=== PATIENT | male | born 1985 | race Caucasian/White ===

== ENCOUNTER 2023-09-25 11:25 | Emergency (ER) | payer OTHER, SELFPAY ==
[2023-09-25 11:28] VITALS: BP 163/95; PULSE 88; RESP 18; TEMP 36.6; O2SAT 98; BMI 26.6
--- NOTE | 2023-09-25 11:43 | ED.UPPEXIN1 ---
HPI - Extremity Injury (Upper) General Chief Complaint: Extremity Injury, Upper Stated Complaint: UPPER EXTREMITY PAIN RIGHT WRIST Time Seen by Provider: 09/25/23 11:30 Source: patient Mode of arrival: walk-in History of Present Illness HPI narrative: 38-year-old male presents for right wrist pain. He fell onto his outstretched hand about a week ago today. No other injury was sustained, he didn't hit his head or injure his left hand or wrist. He points to the right wrist indicate area of pain. He's been told he has bone spurs in there and the pain is moderate and worse when he moves it. Related Data Previous Rx's Medication Instructions Recorded ibuprofen 800 mg tablet 800 mg PO Q8H PRN pain #20 tabs 09/25/23 Allergies Allergy/AdvReac Type Severity Reaction Status Date / Time sumatriptan [From Imitrex] Allergy Severe syncope Verified 09/25/23 11:33 Review of Systems ROS Narrative A ten point review of systems is negative except as noted above. Exam Narrative Exam Narrative: Nurses note and vital signs reviewed and patient is not hypoxic. General: The patient appears well and in no apparent distress. Patient is resting comfortably on cart. Skin: Warm, dry, no pallor noted. There is no rash noted. Head: Normocephalic, atraumatic Eye: Normal conjunctiva, no drainage Ears, Nose, Mouth, and Throat: oral mucosa is moist. Nares patent. Cardiovascular: Regular Rate and Rhythm Respiratory: Patient is in no distress, no accessory muscle use Back: non-tender GI: nontender Musculoskeletal: right hand is nontender and fingers are full range of motion. There is no deformity in the right wrist. There is no obvious swelling and there is no bruising or erythema or rash or abrasions. Range of motion is complete but causes discomfort. Neurological: A&O, normal speech Psychiatric: Cooperative Constitutional Vital Signs, click to edit/add: Last Vital Signs Temp 98 F 09/25/23 11:28 Pulse 88 09/25/23 11:28 Resp 18 09/25/23 11:28 BP 163/95 H 09/25/23 11:28 Pulse Ox 98 09/25/23 11:28 O2 Del Method Room Air 09/25/23 11:28 Course Vital Signs Vital signs: Vital Signs Temperature 98 F 09/25/23 11:28 Pulse Rate 88 11/14/23 11:28 Respiratory Rate 18 09/25/23 11:28 Blood Pressure 163/95 H 09/25/23 11:28 Pulse Oximetry 98 09/25/23 11:28 Oxygen Delivery Method Room Air 09/25/23 11:28 Temperature 98 F 09/25/23 11:28 Pulse Rate 88 09/25/23 11:28 Respiratory Rate 18 09/25/23 11:28 Blood Pressure 163/95 H 09/25/23 11:28 Pulse Oximetry 98 09/25/23 11:28 Oxygen Delivery Method Room Air 09/25/23 11:28 MDM - Extremity Injury (Upper) MDM Narrative Medical decision making narrative: x-rays per radiologist showed no acute findings. Splint applied, application checked by me and found to be appropriate, he is neurovascularly intact. He'll follow-up with orthopedics. Treatment diagnosis and follow-up were discussed with the patient. Differential Diagnosis Differential diagnosis: Likely sprain and strain of wrist and fracture of wrist Imaging Data right wrist x-ray: Radiologist's impression: Procedure: XR wrist RT min 3V EXAM: XR wrist RT min 3V HISTORY: fall one week ago, now with pain. COMPARISON: None. TECHNIQUE: 3 views of the right wrist were obtained. FINDINGS: There is no evidence of an acute fracture or dislocation. A few small scattered cysts are seen in the carpal bones. Ulnar minus variance is present. The joint spaces are intact. No abnormal soft tissue calcification is identified. IMPRESSION: No acute fracture or dislocation. The joint spaces are intact throughout. Electronically authenticated by: SWETA SMITH Date: 09/25/2023 12:41 Discharge Plan Discharge Chief Complaint: Extremity Injury, Upper Clinical Impression: Sprain of right wrist Patient Disposition: Home, Self-Care Time of Disposition Decision: 12:51 Condition: Good Mode of Transportation: Private Vehicle Prescriptions / Home Meds: New ibuprofen 800 mg tablet 800 mg PO Q8H PRN (Reason: pain) Qty: 20 0RF Instructions: Wrist Sprain (ED) Additional Instructions: Follow-up with Dr. Alejandre Stand Alone Forms: Portal Instructions Referrals: Physician,Non-Staff, MD [Primary Care Provider] - 1 week
--- NOTE | 2023-09-25 11:50 | XR_ITS ---
The [address] [address] Patient Name: YUSEF CHAPARRO MRN: [id number] date: 1985 Sex: M Assigned Patient Location: ER Current Patient Location: ER Accession/Order Number: [id number] Exam Date: 09/25/2023 11:55 Report Date: 09/25/2023 12:41 At the request of: ABHINAV COOK Procedure: XR wrist RT min 3V EXAM: XR wrist RT min 3V HISTORY: fall one week ago, now with pain. COMPARISON: None. TECHNIQUE: 3 views of the right wrist were obtained. FINDINGS: There is no evidence of an acute fracture or dislocation. A few small scattered cysts are seen in the carpal bones. Ulnar minus variance is present. The joint spaces are intact. No abnormal soft tissue calcification is identified. XR/XR wrist RT min 3V IMPRESSION: No acute fracture or dislocation. The joint spaces are intact throughout. Electronically authenticated by: SWETA SMITH Date: 09/25/2023 12:41
== END 2023-09-25 12:57 | disposition home or self-care (01) ==
PROVIDERS: Emergency Provider Emergency Medicine
DX: S63.501A Unspecified sprain of right wrist, initial encounter (principal); W19.XXXA Unspecified fall, initial encounter
CPT/HCPCS: 73110; 99283

== ENCOUNTER 2025-09-25 15:01 | Outpatient (OUT) | payer OTHER, SELFPAY ==
--- NOTE | 2025-09-25 15:08 | XR_ITS ---
The [address] [address] Patient Name: YUSEF CHAPARRO MRN: [id number] date: 1985 Sex: M Assigned Patient Location: RAD Current Patient Location: [facility] Accession/Order Number: [id number] Exam Date: 09/25/2025 15:10 Report Date: 09/25/2025 17:35 At the request of: AIMEE JOLLY Procedure: XR wrist RT min 3V 3 views of the right wrist CLINICAL HISTORY: pain, nontraumatic COMPARISON: 09/25/2023 FINDINGS: No fracture-dislocation. Joint spaces preserved. Presumed subchondral cystic changes involving the lunate and distal scaphoid.. Soft tissues unremarkable. XR/XR wrist RT min 3V IMPRESSION: NO ACUTE OSSEOUS FINDINGS. Impression dictated by: Harvey Banegas M.D. 09/25/2025 5:35 PM Dictation Location: [place] [address] Electronically authenticated by: [id number] Y Date: 09/25/2025 17:35
--- OUTSIDE RECORDS SUMMARY | 2025-09-25 15:08 | XMS_ITS | CCD ---
Author Organization [facility] Care Team Providers Care Teaching Dietitian Name Role Phone Mars Dana Unavailable Shirlene Negron Unavailable FARRAH ., DR KORY Rouse Primary Care Unavailable JOEY ., KATHY Admitting Unavailable JOEY ., KATHY Attending Unavailable JARAD, DR DANA Ashley Consulting Unavailable KENIACHNY ., ANGI ARZATE Consulting Unavailanna YAN ., DR KORY Rouse Admitting Unavailable YAN ., DR KORY Rouse Attending Unavailable YAN ., DR KORY Rouse Primary Care Unavailable YAN ., DR KORY Rouse Consulting Unavailable Clint Warren Attending Unavailab Clint Harris Admitting Unavailab Koyr Peñaloza Primary Care Unavailable Marcell Miller DDS Attending Unavailable Aimee Jolly Primary Care Physician Cristiane Nicholas I Unavailable Unavailable LuzAimee Attending Unavailable LuzAimee Attending Unavailable LuzAimee Attending Unavailable Luz, Aimee Simpson Attending Unavailable LuzAimee Admitting Unavailable LuzAimee Attending Unavailable Luz DAIRY DEPARTMENT MANAGER - CRISIS COUNSELORAimee Primary Care Provider AIMEE JOLLY Primary Care Unavailable IACOBBRITNEYMAYTE Admitting Unavailable IACOBBRITNEYMAYTE Attending Unavailable LILIA BURCH Consulting Unavailable KORY YAN Primary Care Unavailable AMYELA MAYFIELD Attending Unavailable LuzAimee Admitting Unavailable LuzAimee Attending Unavailable LuzAimee Attending Unavailable LuzAimee Attending Unavailable Luz, Aimee Simpson Attending Unavailable Luz, Aimee Simpson Attending Unavailable LuzAimee Attending Unavailable LuzAimee Attending Unavailable LuzAimee Attending Unavailable Allergies Allergy ClassificationReported Allergen(s)Allergy TypeDate of OnsetReaction(s) Facility (10 sources)SUMAtriptan; Translations: [sumatriptan]Drug Cqvufzh38-75-2729Sdovu (See Comments)[facility] [place] (3 sources)Acetaminophen / oxyCODONE; Translations: [Percocet]Drug Allergy 64-44-7894Zdf [facility] (1 source)cyclobenzaprineDrug Hnwogox32-90-8520Ghm [facility] (3 sources)Plasmin; Translations: [Imitrex]Drug Witzgxq71-66-0783[facility] (1 source)traMADolDrug Cmbavsh32-42-3015Kll [facility] (1 source)cyclobenzaprineDrug Bsshtir91-21-5411DvkyelnulUk [facility] (1 source)SUMAtriptanDrug Ohyufqr80-71-6808ZyfhpbataUk Healthcare Repository (1 source)Acetaminophen / oxyCODONE; Translations: [acetaminophen-oxycodone]Drug AllergyUnknown (qualifier value)[facility] (3 sources)Minocycline; Translations: [minocycline]Drug AllergyUnknown (qualifier value)[facility] (4 sources)traMADol; Translations: [tramadol]Drug Btvrsvi98-56-3762Vvyntlp (qualifier value), [facility]chingAv[facility] (1 source)Acetaminophen / oxyCODONEDrug Ojsyonq42-15-4559IaoyzehDyvN[facility] (1 source)cyclobenzaprineDrug Ajnwayu80-40-0502RinqlreKdgNorton Community Hospital (1 source)MinocyclineDrug Pohsmjb29-05-8663KspzetkKpxNorton Community Hospital Medications Current Medications MedicationDrug Class(es)DatesSig (Normalized)Sig (Original)acetaminophen 325 mg oral tablet (3 sources)Start: 49-63-2472usqm 4000 mg by mouth every twenty-four hours as mg, Oral, EVERY 4 HOURS PRN, Starting on Jossy 06/18/25 at 0928, Until Discontinued, Pain Mild (1-3) OR per patient request for pain score (4-10), Fever, Fever >100.5 F (38 C), Maximum dose of acetaminophen is 4000 mg from all sources in 24 hours., Recovery(Cath)Start: 17-09-3677ahkzizqyqrrea (TYLENOL) tablet 650 mgStart: 06-17-2025 End: 63-34-5281pgck 4000 mg by mouth every twenty-four hours1,000 mg, Oral, ONCE, 1 dose, On Sun06/17/25 at 0600, Maximum dose of acetaminophen is 4000 mg from all sources in 24 hours.amitriptyline hydrochloride 50 mg oral tablet (2 sources)Tricyclic AntidepressantStart: 12-15-5064lups 1 tablet by mouth at bedtimeAmitriptyline HCl 50 MG 1 TABLET Orally AT BEDTIME for 30 day(s) Sep, Activeamylase 472915 unt / lipase 39677 unt / protease 117705 unt delayed release oral capsule (4 sources)Start: 61-46-7761mfuu 1 capsule by mouth three times daily at mealtimeCreon 17056-402934 UNIT 1 capsule Orally tid with meals for 30 days Aug, Activeaspirin 81 mg chewable tablet (4 sources)Platelet Aggregation Inhibitor, Nonsteroidal Anti-inflammatory Drug Start: 06-16-4025dvkq 1 tablet by mouth once dailyaspirin 81 MG chewable tablet Take 1 tablet by mouth daily 30 tablet 3 06/19/2025 ActiveStart: 53-03-7173rrnt 1 dose by mouth zzxx537 mg, Oral, ONCE, 1 dose, On Sun06/17/25 at 0815Start: 74-76-6847feuf 81 mg by mouth once daily81 mg, Oral, DAILY, First dose on Sun06/18/25 at 0900, Until Discontinuedatorvastatin 40 mg oral tablet (2 sources)HMG-CoA Reductase InhibitorStart: 52-21-6177yrrc 1 tablet by mouth once dailyatorvastatin (LIPITOR) 40 MG tablet Take 1 tablet by mouth nightly 30 tablet 3 06/18/2025 ActiveStart: 81-65-1525iuiz 40 mg by mouth once daily40 mg, Oral, NIGHTLY, First dose on Sun06/17/25 at 2100, Until DiscontinuedbusPIRone hydrochloride 10 mg oral tablet (1 source)Start: 40-38-3003oaog 1 tablet by mouth three times dailybusPIRone 10 mg Tab 10 mg = 1 tab(s), Oral, TID, # 90 tab(s), Refills(s) 0, Pharmacy: [facility], 175, cm, 11/25/24 15:16:00 EST, Height/Length Dosing, 96.1, kg, 11/25/24 15:16:00 EST, Weight Dosing Start Date: 11/25/24 Status: Ordered ciprofloxacin 500 mg oral tablet (3 sources)Quinolone AntimicrobialStart: 58-04-1954fthf 1 tablet by mouth every twelve hoursCipro 500 MG 1 tablet Orally every 12 hrs for 10 day(s) Sep, Activeescitalopram 20 mg oral tablet (1 source)Serotonin Reuptake InhibitorStart: 58-44-6398rdyq 1 tablet by mouth once dailyescitalopram 20 mg Tab 20 mg = 1 tab(s), Oral, Daily, # 90 tab(s), Refills(s) 1, Pharmacy: [facility], 175, cm, 11/25/24 15:16:00 EST, Height/Length Dosing, 96.1, kg, 11/25/24 15:16:00 EST, Weight Dosing Start Date: 11/25/24 Status: Orderedlosartan potassium 25 mg oral tablet (1 source)Angiotensin 2 Receptor BlockerStart: 05-04-2025 End: 05-30-7173etvc 1 tablet by mouth once dailylosartan (COZAAR) 25 MG tablet Take 1 tablet by mouth daily 05/04/2025 06/18/2025 Discontinued (Stop Taking at Discharge)metroNIDAZOLE 500 mg oral tablet (3 sources)Nitroimidazole AntimicrobialStart: 82-06-4031dxvh 1 tablet by mouth twice dailyFlagyl 500 MG 1 tablet Orally TWICE A DAY for 10 day(s) Sep, Ltwqwf87 hr nicotine 0.875 mg/hr transdermal system (1 source)Cholinergic Nicotinic AgonistStart: 06-18-2025 End: 01-62-6387eqyap 1 dose transdermal route once dailynicotine (NICODERM CQ) 21 MG/24HR Place 1 patch onto the skin daily 30 patch 5 06/18/2025 12/15/2025 Activeondansetron (ZOFRAN-ODT) disintegrating tablet 4 mg (1 source)Start: 32-35-8040xhpuvcgooat (ZOFRAN-ODT) disintegrating tablet 4 mg polyethylene glycol 3350 25840 mg powder for oral solution (1 source)Osmotic LaxativeStart: 01-27-3048tppookTXWA 10 mg oral tablet (4 sources)Start: 87-58-0437izrp 2 tablets by mouth once dailypredniSONE 10 MG 2 tabs Orally Once a day for 14 days Aug, ActiveQUEtiapine 25 mg oral tablet (2 sources)Atypical AntipsychoticStart: ml sodium chloride 9 mg/ml injection (8 sources)Start: 84-68-6371SyurnYNMcqg, CONTINUOUS, Starting on Jossy 06/18/25 at 0945, -Rate of IV fluid administration during recovery will be based on the patient's LVEDP obtained during the procedure using the following formula: 1. LVEDP 18 = 1.5cc/kg/hr If no LVEDP obtained, ask survey technician for fluid rate and volume to be given in recovery. -Fluids will be infused over a minimum of 2 hours. Rate shall not exceed 500 cc/hr. Ask survey technician for fluid volume total to be infused. -If GFR is less than 30, fluids will be infused over a minimum of 3 hours. -In case of reduced EF, CHF, etc., consult survey technician for rate and volume to be administered., Recovery(Cath)Start: -40 mL, IntraVENous, PRN, Starting on Jossy 06/18/25 at 0928, Until Discontinued, Line Care, After every IV line use, For Line Patency: Peripheral IV = 5 mL; Midline or Central Line = 10 mL/lumen. If following IV push medication, administer flush at same rate as the IV push. Flush volume is determinedby type of infusion therapy being given. For non-viscous solutions use: Peripheral IV = 5 mL Midline or Central Line = 10 mL/lumen For viscous solutions (i.e. blood components, parenteral nutrition, c ontrast media, or after obtaining blood sample) use: Peripheral IV = 10 mL Midline or Central Line = 20 mL/lumen, Recovery(Cath)Start: -40 mL, IntraVENous, EVERY 12 HOURS SCHEDULED (2 times per day), First dose on Jossy 06/18/25 at 0945,Until Discontinued, For Line Patency: Peripheral IV = 5 mL; Midline or Central Line = 10 mL/lumen. If following IV push medication, administer flush at same rate as the IV push. Flush volume is determined by type of infusion therapy being given. For non-viscous solutions use: Peripheral IV = 5 mL Midline or Central Line = 10 mL/lumen For viscous solutions (i.e. blood components, parenteral nutrition, contrast media, or after obtaining blood sample) use: Peripheral IV = 10 mL Midline or Central Line = 20 mL/lumen, Recovery(Cath)Start: 86-18-8060Azbxu: 06-17-2025 End: 08-24-8591CzwsrGODcje, at 75 mL/hr, CONTINUOUS, Starting on Sun06/17/25 at 1215, For 24 hours, Complete last bag that is running at 24 hours and then saline lock IVStart: 06-17-2025 End: ,000 mL, IntraVENous, at 495.9 mL/hr, Administer over 121 Minutes, ONCE, On Sun06/17/25 at 0545, For 1 dose Completed/Discontinued Medications MedicationDrug Class(es)DatesSig (Normalized)Sig (Original)albuterol 0.83 mg/ml inhalation solution (1 source)beta2-Adrenergic AgonistStart: .5 mg, Nebulization, EVERY 4 HOURS PRN, Starting on Sun06/17/25 at 1602, Until Discontinued, Wheezing, Initiate RT Bronchodilator Protocol: Yes - Inpatient Protocolalbuterol 0.833 mg/ml / ipratropium bromide 0.167 mg/ml inhalation solution (2 sources)Anticholinergic, beta2-Adrenergic AgonistStart: 63-52-2600fyys 1 dose by inhalation three times daily1 Dose, Inhalation, 3 TIMES DAILY, First dose (after last modification) on Sun06/17/25 at 2100, Until Discontinued, Initiate RT Bronchodilator Protocol: Yes - Inpatient ProtocolStart: 06-17-2025 End: 95-04-3467njmz 1 dose by inhalation four times daily1 Dose, Inhalation, 4 TIMES DAILY RESP, First dose on Sun06/17/25 at 1600, Until Discontinued, Initiate RT Bronchodilator Protocol: Yes - Inpatient ProtocolamLODIPine 5 mg oral tablet (4 sources)Dihydropyridine Calcium Channel BlockerStart: 44-15-5806qulq 2.5 mg by mouth once daily2.5 mg, Oral, DAILY, First dose on Jossy 06/18/25 at 1130, Until DiscontinuedStart: 32-84-5499mbcj 1 tablet by mouth once dailyamLODIPine 10 mg Tab 10 mg = 1 tab(s), Oral, Daily, # 90 tab(s), Refills(s) 0, Pharmacy: [facility], 175, cm, 07/21/24 11:47:00 EDT, Height/Length Dosing, 88.1, kg, 07/21/24 11:47:00 EDT, Weight Dosing Start Date: 07/23/24 Status: OrderedStart: 07-11-2024 End: 35-16-1955pciz 1 tablet by mouth once dailyamLODIPine (NORVASC) 2.5 MG tablet Take 1 tablet by mouth daily 30 tablet 4 06/18/2025 11/15/2025 Active amoxicillin 500 mg oral capsule (1 source)Penicillin-class Antibacterial End: 25-35-4162hmbl 1 capsule by mouth three times dailyamoxicillin (AMOXIL) 500 MG capsule Take 1 capsule by mouth 3 times daily 06/17/2025 Discontinued (LIST CLEANUP)cefTRIAXone (ROCEPHIN) 2,000 mg in sterile water 20 mL IV syringe (1 source)Start: 06-17-2025 End: 23-53-2992odql 100 mg intravenously once2,000 mg, IntraVENous, ONCE, On Sun06/17/25 at 1030, For 1 dose, Administer as slow IV Push over 5 mins Reconstitute 2 g vials with 19.2 mL of designated diluent to produce a 100mg/mL solution doxycycline (VIBRAMYCIN) 100 mg in sodium chloride 0.9 % 100 mL IVPB (1 source)Start: 06-17-2025 End: 21-97-0958416 mg, IntraVENous, Once, 1 dose, On Sun06/17/25 at 1030, Antimicrobial Indications: Pneumonia (CAP)250 ml heparin sodium, porcine 100 unt/ml injection (3 sources)Unfractionated Heparin, Anti-coagulantStart: 06-17-2025 End: ,000 Units, IntraVENous, ONCE, 1 dose, On Sun06/17/25 at 1215, Initial one time bolusStart: 06-17-2025 End: -30 Units/kg/hr 95.5 kg (4.775-28.65 mL/hr, rounded to 4.8-28.7 mL/hr), IntraVENous, CONTINUOUS, Starting on Sun06/17/25 at 1215, Until Jossy 06/18/25 at 0953, Heparin Weight-Based Infusion (CAD/STEMI/NSTEMI/UA/AFIB) Patient weight: *Warning - No recorded weight in past 5 days. heparin dosing must be ma nually calculated* kg Initial Infusion rate: 12 Units/kg/hr [Max rate: 1000 Units/hr] (If an initial bolus is ordered, give the bolus prior to the initiation of the infusion) Hang infusion immediately after drawing initial labs. Do NOT use ANY aPTT drawn prior to initiation of infusion for titration. Check aPTT 6 hours after initiation and 6 hours after every dose change for any titrations. Adjust infusion rate based on aPTT results as listed below. Rate adjustments are to be based on initial weight of *Warning - No recorded weight in past 5 days. heparin dosing must be manually calculated* kg. aPTTStart: 06-17-2025 End: ,000 Units, IntraVENous, PRN, Starting on Sun06/17/25 at 1152, Until Jossy 06/18/25 at 0953, Other, heparin dosing algorithm, Full dose re-bolus based on pharmacy algorithmhyoscyamine sulfate 0.125 mg sublingual tablet (10 sources)Start: 57-45-9011blqa 0.125 mg under the tongue three times daily 0.125 mg, SubLINGual, 3 TIMES DAILY, First dose on Sun06/17/25 at 1400, Until DiscontinuedStart: 21-18-7510bber 1 tablet by mouth once daily before breakfast hyoscyamine (LEVBID) 0.375 MG extended release tablet Take 1 tablet by mouth every morning (before breakfast) 06/14/2025 SuspendedStart: 99-66-9816ibyq 1 tablet by mouth once dailyhyoscyamine 0.375 mg ER Tab 0.375 mg = 1 tab(s), Oral, Daily, # 90 tab(s), Refills(s) 3, Pharmacy: [facility], 175, cm, 11/25/24 15:16:00 EST, Height/Length Dosing, 96.1, kg, 11/25/24 15:16:00 EST, Weight Dosing Start Date: 11/25/24 Status: OrderedStart: 48-92-4507xiej 1 tablet by mouth every twelve hoursHyoscyamine Sulfate ER 0.375 MG 1 tablet Orally every 12 hrs for 90 days May, Activeiopamidol (ISOVUE-370) 76 % injection 75 mL (1 source)Start: 06-17-2025 End: 01-31-6652chmk 1 dose intravenously once75 mL, IntraVENous, IMG ONCE PRN, 1 dose, Starting on Sun06/17/25 at 0612, Until Sun06/17/25 at 0720,Other levothyroxine sodium 0.1 mg oral tablet (7 sources)l-ThyroxineStart: 91-80-8651zhlt 1 tablet by mouth once daily levothyroxine 100 mcg (0.1 mg) Tab 100 mcg = 1 tab(s), Oral, Daily, # 90 tab(s), Refills(s) 3, Pharmacy: [facility], 175, cm, 07/21/24 11:47:00 EDT, Height/Length Dosing, 88.1, kg, 07/21/24 11:47:00 EDT, Weight Dosing Start Date: 09/15/24 Status: OrderedStart: 22-94-7589baew 100 ug by mouth once mcg, Oral, DAILY, First dose on Sun06/17/25 at 1215, Until Discontinued, Tube feeding (TF) interaction, obtain physician order to manage, recommend holding TF for 30 minutes before and after dose.Levothyroxine Sodium Activenaproxen sodium 550 mg oral tablet (1 source)Nonsteroidal Anti-inflammatory DrugStart: 04-21-2016 End: 39-68-4924rhfe 1 tablet by mouth twice daily at mealtimenaproxen sodium (ANAPROX DS) 550 MG tablet Take 1 tablet by mouth 2 times daily (with meals) 60 tablet 3 04/21/2016 06/17/2025 Discontinued (LIST CLEANUP)nitroglycerin 0.4 mg sublingual tablet (1 source)Nitrate VasodilatorStart: 50.4 mg, SubLINGual, PRN, Starting on Sun06/17/25 at 0814, Until Discontinued, Chest pain, Place 1 tablet under tongue upon chest pain, wait 5 minutes and may repeat up to 3 doses in 15 minutes. Do notcrush or break.pantoprazole 40 mg delayed release oral tablet (11 sources)Proton Pump InhibitorStart: 92-09-1634fuxq 40 mg by mouth once daily 40 mg, Oral, DAILY, First dose on Sun06/17/25 at 1215, Until Discontinued, Do not crush or break.Start: 18-23-5223iyuc 1 tablet by mouth once dailyPantoprazole [address] Tab 40 mg = 1 tab(s), Oral, Daily, # 90 tab(s), Refills(s) 3, Pharmacy: [facility], 175, cm, 11/25/24 15:16:00 EST, Height/Length Dosing, 96.1, kg, 11/25/24 15:16:00 EST, Weight Dosing Start Date: 11/25/24 Status: OrderedStart: 89-81-8336imkb 1 tablet by mouth every twenty-four hours Pantoprazole Sodium 40 MG 1 tablet Orally Once a day for 30 day(s) Jul, ActivesulfaSALAzine 500 mg oral tablet (4 sources)Aminosalicylatetake 1 tablet by mouth every six hourssulfaSALAzine 500 MG 1 Tablet p.o. qid Not-Takingsulfur hexafluoride microspheres (LUMASON) 60.7-25 MG injection 2 mL (1 source)Start: 06-17-2025 End: mL, IntraVENous, IMG ONCE PRN, 1 dose, Starting on Sun06/17/25 at 1309, Until Sun06/17/25 at 1311, Other, Inability to adequately visualize heart without contrast, Only to be given during ECHOCARDIOGRAM. Echocardiogram should first be performed without contrast and if exam is adequate then DO NOT administer the contrast. If unable to adequately visualize heart without contrast and the patient hasno contraindications to echo contrast then administer the echo contrast.24 hr venlafaxine 75 mg extended release oral capsule (2 sources)Serotonin and Norepinephrine Reuptake InhibitorStart: 41-83-0664suue 75 mg by mouth once daily75 mg, Oral, DAILY, First dose on Sun06/17/25 at 1400, Until Discontinued, Do not crush or break. Problems Active Problems Problem ClassificationProblemDateDocumented DateEpisodic/ChronicAbdominal pain (10 sources)Abdominal pain; Translations: [Unspecified abdominal pain]Onset: 08-16-2021 Resolved: 56-43-5608SkqolwoeAihtq myocardial infarction (4 sources)Myocardial infarction; Translations: [Non-ST elevation (NSTEMI) myocardial infarction]Onset: 021976-70-2807FdbwnlbLjurwyh disorders (2 sources)Anxiety; Translations: [Post-trauma response]52-02-9356Ujxadfr Esophageal disorders (13 sources)Gastroesophageal reflux disease; Translations: [Gastro-esophageal reflux disease without esophagitis]Onset: 08-16-2021 Resolved: 28-68-9816ZpztkvwGhcfvxotj hypertension (4 sources)Essential hypertension; Translations: [Hypertensive disorder]Onset: 382627-21-2903LciexhfDnhxwlrklpxdhcuq hemorrhage (7 sources)Hemorrhage of anus and rectum; Translations: [Rectal hemorrhage] Onset: 09-28-2021 Resolved: 11-80-0976BanukibuPlowtwcx; including migraine (1 source)Migraine without rdtk56-41-2626FafxvvqIuxgm disorders and dislocations; trauma-related (1 source)Derangement of right yzgp33-60-4985WfgitywSjxsndo and fatigue (1 source)Pkxfhmb97-55-2438MwfhwmyqRbmieslkcl disorders (1 source)Hormone replacement therapy; Translations: [HORMONE REPLACEMENT THERAPY]Onset: 22-57-6917BeqtpomrCbdd disorders (1 source)Depressed ythr61-45-0260BrgcyexWptlcdjljjt chest pain (10 sources)Chest pain, unspecified; Translations: [Chest pain]Onset: 01-11-2023 EpisodicOther gastrointestinal disorders (8 sources)Irritable bowel syndrome with diarrhea; Translations: [Irritable bowel syndrome with diarrhea]ChronicOther gastrointestinal disorders (3 sources)Irritable bowel syndrome with diarrhea; Translations: [Irritable bowel syndrome with diarrhea K58.0]Onset: 08-16-2021 Resolved: 65-83-0354AzxdxzsBpaos gastrointestinal disorders (1 source)Irritable bowel -54-3995ZqxkcdlXwqfu infections; including parasitic (1 source)Lyme -64-3200RdccfbcoRzrag non-traumatic joint disorders (1 source)Shoulder gsyl86-89-5074FcocdyiiAojvn nutritional; endocrine; and metabolic disorders (1 source)Body mass index (BMI) 31.0-31.9, adult; Translations: [BODY MASS INDEX BMI 31.0-31.9 ADULT]Onset: 01-75-6723QggrtekUyora nutritional; endocrine; and metabolic disorders (1 source)Body mass index 30+ - -43-8057OefzjqzYxkya nutritional; endocrine; and metabolic disorders (1 source)Qrnmvfvmuh24-73-1346DlkhmugaSrijq nutritional; endocrine; and metabolic disorders (1 source)Overweight in adulthood with body mass index of 25 or more but less than 2887-34-1276ArjcgsnhCovvh screening for suspected conditions (not mental disorders or infectious disease) (5 sources)Computed tomography result abnormal; Translations: [Abnormal findings on diagnostic imaging of other specified body structures]Onset: 01-24-2022 Resolved: 13-14-7985HexwclzSwnhf screening for suspected conditions (not mental disorders or infectious disease) (3 sources)Abnormal findings on diagnostic imaging of other abdominal regions, including retroperitoneum; Translations: [Raised cardiac enzyme or marker]Onset: 09-28-2021 Resolved: 00-54-2128WghdfnglZkcnqkkcv (except that caused by tuberculosis or sexually transmitted disease) (4 sources)Right lower zone pneumonia; Translations: [Pneumonia, unspecified organism]Onset: 078670-10-9185XonpdvwpCcoblzbj enteritis and ulcerative colitis (8 sources)Crohn's disease; Translations: [Crohn's disease, unspecified, without complications]ChronicResidual codes; unclassified (1 source)Sleep slzvxxyz59-74-1899ErfenvxcBwkpzpsr codes; unclassified (2 sources)Tobacco user; Translations: [Tobacco use]Onset: 848188-96-2232 EpisodicSepticemia (except in labor) (4 sources)Sepsis; Translations: [Sepsis, unspecified organism]Onset: 06-17-2025 66-02-5353KuluqjhcZhtkctboo-related disorders (5 sources)Nicotine dependence, unspecified, uncomplicated; Translations: [Nicotine dependence, cigarettes, uncomplicated]Onset: 566653-14-4654 ChronicThyroid disorders (5 sources)Hypothyroidism, unspecified; Translations: [Hypothyroidism]Onset: 55-86-0161Wvgdono Past or Other Problems Problem ClassificationProblemDateDocumented DateEpisodic/ChronicOther gastrointestinal disorders (1 source)Other specified diseases of intestineOnset: 09-28-2021 Resolved: 77-23-6855XiekkmbtFobks gastrointestinal disorders (2 sources)Diarrhea, unspecifiedOnset: 03-08-2022 Resolved: 76-51-7994Hgmnndcv Results Test NameValueInterpretationReference RangeFacilohiohealth marion general hospitalPopulation Healthon 27-53-0195Joxzesowic HealthFormerly [facility] Case Information Case Priority: None Programs: -- Referral Source: Pipeline Inspector Referral Reason: Care coordination Case Type: High Risk Adult Risk Score: -- Case Status: Enrolled (June 19, 2025) Date Assigned: June 19, 2025 Assigned By: Semaj Champion Date Enrolled: June 19, 2025 Assigned Primary Personnel: Semaj Champion Assigned Secondary Personnel: -- Case Physician: Aimee Irwin Problems Ongoing ADHD Anxiety Depressed mood Essential hypertension Fatigue Hematochezia Hypothyroidism IBS - Irritable bowel syndrome Insomnia Internal derangement of right knee Lyme disease Migraine without aura Moderate recurrent major depression Overweight Post-trauma response Shoulder pain Sleep disorder Smoker Status post non-ST elevation myocardial infarction (NSTEMI) Historical No qualifying data Procedure/Surgical History Colonoscopy (2019). Home Medications aspirin, 81 mg, Oral, Daily atorvastatin, 40 mg, Oral, Daily Effexor XR 75 mg Cap-ER, 75 mg= 1 cap(s), Oral, Daily, 1 refills hyoscyamine 0.375 mg ER Tab, 0.375 mg= 1 tab(s), Oral, Daily, 3 refills levothyroxine 100 mcg (0.1 mg) Tab, 100 mcg= 1 tab(s), Oral, Daily, 3 refills Pantoprazole [address] Tab, 40 mg= 1 tab(s), Oral, Daily, 3 refills Seroquel, 25 mg, Oral, Bedtime, PRN Allergies Percocet (Unknown) minocycline (Unknown) traMADol (Unknown) Imitrex Social History Alcohol Current. Beer. 1-2 times per week., 03/05/2025 Substance Abuse - Denies Substance Abuse, 12/18/2013 Past. Marijuana. 1-2 times per month. Previous treatment: None., 03/05/2025 Tobacco Former smoker, quit more than 30 days ago, quit beginning of June 2025 Tobacco Use:. Never Smokeless Tobacco Use:. Household tobacco concerns: No., 06/26/2025 Family History Acute myocardial infarction: Father. Diabetes mellitus type 1: Father. Stroke: Father. Screenings and Assessments 06/19/25 11:14:00 Result Name Value Comment Phone Call Monitoring Consent Agreed to continue call Phone Verification Patient Information Full name, street address and date of verified CM Program Enrollment Provides verbal consent for enrollment Goals and Interventions Care Plan Progress Note APPRENTICE ELECTRICIAN#3- Called patient for final status update, states he is doing good, his heart is still beating.Patient denies CP, notes he will get a twinge if he really really exerts himself. Encouraged to discuss with cardiology. Patient still takes atorvastatin and ASA along with his other medications. Notes he does not miss taking his medication. Patient reminds CN his GF is a nurse and that she monitors him closely. Denies further questions or concerns. Communication Events Date: July 17, 2025 Method: Phone call Type: Outbound Duration (min): 3 Outcome: Case discussion Contact Type: Patient Contact Name: CHEL CHAPARRO Notes: APPRENTICE ELECTRICIAN#3- Final call to patient, see APPRENTICE ELECTRICIAN note. Created By: Semaj Champion Date: July 03, 2025 Method: Phone call Type: Outbound Duration (min): 1 Outcome: No answer Contact Type: Patient Contact Name: CHEL CHAPARRO Notes: APPRENTICE ELECTRICIAN#2- Attempted to contact pt fpr status update, no answer, VM full. Created By: Semaj Champion Date: June 19, 2025 Method: Phone call Type: Outbound Duration (min): 9 Outcome: Case discussion Contact Type: Patient Contact Name: CHEL CHAPARRO Notes: APPRENTICE ELECTRICIAN#1- See APPRENTICE ELECTRICIAN note. Created By: Semaj Champion RNOhioHealth Grove City Methodist HospitalAmbulatory Visit Summaryon [id number] Visit SummaryAmbulatory Visit Summary CHEL CHAPARRO :1985 Visit Date:06/26/2025 Ambulatory Visit Instructions Your Diagnosis ADHD Status post non-ST elevation myocardial infarction (NSTEMI) Former smoker BMI 33.0-33.9,adult Your Care Team Attending Physician - Aimee Irwin Primary Care Physician - Aimee Irwin This Is Your Medications List aspirin atorvastatin hyoscyamine (hyoscyamine 0.375 mg ER Tab) levothyroxine (levothyroxine 100 mcg (0.1 mg) Tab) pantoprazole (Pantoprazole [address] Tab) quetiapine (Seroquel) venlafaxine (Effexor XR 75 mg Cap-ER) Procedures Performed Colonoscopy (2019). Discharge Vitals Temperature (Temporal Artery) 36.3 ???C Heart Rate (Peripheral) 92 Respiratory Rate 18 Blood Pressure 144/86 Height 175.0 cm Height 69 in Weight 102.1 kg Weight 225.092 lb BMI 33.34 What to do next Scheduled Follow-Up Appointments Sunday 2:20 PM EST With: Aimee Irwin Where: [place] [address]- Medications What How Much When Why Instructions Unchanged aspirin 81 Milligram By Mouth Every day Unchanged atorvastatin 40 Milligram By Mouth Every day Unchanged hyoscyamine (hyoscyamine 0.375 mg ER Tab) 1 Tablets By Mouth Every day Unchanged levothyroxine (levothyroxine 100 mcg (0.1 mg) Tab) 1 Tablets By Mouth Every day Unchanged pantoprazole (Pantoprazole [address] Tab) 1 Tablets By Mouth Every day Unchanged quetiapine (Seroquel) 25 Milligram By Mouth At bedtime as needed for Other (see comment) Unchanged venlafaxine (Effexor XR 75 mg Cap-ER) 1 Capsules By Mouth Every day Anxiety BMI 31.0-31.9,adult Smoker Allergies Percocet (Unknown) minocycline (Unknown) traMADol (Unknown) Imitrex Problems Ongoing - Any problem that you are currently receiving treatment for. ADHD Anxiety Depressed mood Essential hypertension Fatigue Hematochezia Hypothyroidism IBS - Irritable bowel syndrome Insomnia Internal derangement of right knee Lyme disease Migraine without aura Moderate recurrent major depression Overweight Post-trauma response Shoulder pain Sleep disorder Smoker Status post non-ST elevation myocardial infarction (NSTEMI) Patient Survey You may receive a survey via text or e-mail asking about your office visit. Please share your experience with us by completing your survey. We appreciate your feedback and thank you for choosing us for your care. Patient Portal You may access all of your results and other medical record information on our secure patient portal. If you are not signed up for this yet, please contact [employer] at [phone] to get signed up today. Language Information Language assistance services are available as needed. [facility] Medicine Office/Clinic Noteon [id number] Medicine Office/Clinic NoteBridgewater State Hospital Medicine Office/Clinic Note HPI Staff Chel is a 40 year old male presenting with Has been on Adderall 20 mg Sleeping well: yes Eating habits: Eating well, maintaining weight Side effects: _ Focused at home: _ Concerns/complaints: None OARRS reviewed with no concerns Last med refill: _ Urine drug screen complete: yes 04/03/25 Medication agreement utd: yes Date: 04/03/25 stopped taking this because he had a heart attack last Sunday morning, is willing to start back uphe just wants to make sure its ok to take this again History of Present Illness pt presents today for 3 month follow up. was also in hospital for Non Stemi. had heart cath Review of Systems PHQ Score Initial Depression Screen Score: 0 SCORE Physical Exam Vitals & Measurements T: 36.3 ???C(Temporal Artery) HR: 92(Peripheral) RR: 18 BP: 144/86 SpO2: 95% HT: 69 in HT: 175.0 cm WT: 225.092 lb WT: 102.1 kg BMI: 33.34 General: alert, no acute distress ENMT: oral mucosa moist, no pharyngeal erythema or exudate Cardiovascular: regular rate and rhythm, normal peripheral perfusion Respiratory: Lungs CTA, respirations non labored Extremities: no deformity, no trauma Neurological: oriented x 4, LOC appropriate for age, CN II-XII intact, motor strength equal & normal bilaterally, speech normal Assessment/Plan 1. ADHD (F90.9: Attention-deficit hyperactivity disorder, unspecified type) pt presents for follow up on ADHD but given the circumstance that he just had a heart attack we will not be refilling this medication at this time. 2. Status post non-ST elevation myocardial infarction (NSTEMI) (I25.2: Old myocardial infarction) pt had an episode last week called 911. had nstemi. heart cath with no intervention. pt has since quit smoking and drinking energy drinks. and is trying to make dietary changes. RTC 3 months for follow up. 3. Former smoker (Z87.891: Personal history of nicotine dependence) continue not smoking 4. BMI 33.0-33.9,adult (Z68.33: Body mass index [BMI] 33.0-33.9, adult) BMI education given Follow-up No qualifying data available Problem List/Past Medical History Ongoing ADHD Anxiety Depressed mood Essential hypertension Fatigue Hematochezia Hypothyroidism IBS - Irritable bowel syndrome Insomnia Internal derangement of right knee Lyme disease Migraine without aura Moderate recurrent major depression Overweight Post-trauma response Shoulder pain Sleep disorder Smoker Status post non-ST elevation myocardial infarction (NSTEMI) Historical No qualifying data Procedure/Surgical History Colonoscopy (2019). Medications aspirin, 81 mg, Oral, Daily atorvastatin, 40 mg, Oral, Daily Effexor XR 75 mg Cap-ER, 75 mg= 1 cap(s), Oral, Daily, 1 refills hyoscyamine 0.375 mg ER Tab, 0.375 mg= 1 tab(s), Oral, Daily, 3 refills levothyroxine 100 mcg (0.1 mg) Tab, 100 mcg= 1 tab(s), Oral, Daily, 3 refills Pantoprazole [address] Tab, 40 mg= 1 tab(s), Oral, Daily, 3 refills Seroquel, 25 mg, Oral, Bedtime, PRN Allergies Percocet (Unknown) minocycline (Unknown) traMADol (Unknown) Imitrex Social History Alcohol Current. Beer. 1-2 times per week., 03/05/2025 Substance Abuse - Denies Substance Abuse, 12/18/2013 Past. Marijuana. 1-2 times per month. Previous treatment: None., 03/05/2025 Tobacco Former smoker, quit more than 30 days ago, quit beginning of June 2025 Tobacco Use:. Never Smokeless Tobacco Use:. Household tobacco concerns: No., 06/26/2025 Family History Acute myocardial infarction: Father. Diabetes mellitus type 1: Father. Stroke: Father. Immunizations Vaccine Date Status Comments influenza virus vaccine, inactivated - Not Given Postpone due to refusal SARS-CoV-2 mRNA (tozinameran 5y-11y) vac - Not Given Postpone due to refusal diphtheria/pertussis, acel/tetanus adult 08/20/2019 Recorded measles/mumps/rubella virus vaccine 02/10/1998 RecordedRegional Medical CenterComment on above:Result Comment: Electronically Signed By: Aimee Irwin\Date and Time Signed: 06/26/25 14:13 EDTCult, Bloodon 06-22-2025 Cult, BloodSpecimen Description .BLOOD Special Requests RIGHT AC, 10ML, 2481 Culture NO GROWTH 5 DAYS Report Status FINAL 06/22/2025Corey HospitalComment on above: Performed By: #### BCUL2 #### [address] [place] [address] Team Otr Truck Driver: Dana Mendoza [facility] [id number],BloodSpecimen Description .BLOOD Special Requests LEFT WRIST, 12ML, 2785 Culture NO GROWTH 5 DAYS Report Status FINAL 06/22/2025Corey HospitalComment on above: Performed By: #### BC #### [address] [place] [id number] Team Otr Truck Driver: Dana Mendoza [facility],BloodSpecimen Description .BLOOD Special Requests 8ML, LEFT AC, 2481 Culture NO GROWTH 5 DAYS Report Status FINAL 06/22/2025Corey HospitalComment on above: Performed By: #### CP, CDP, TROPI, LIP, SALI #### [address] [place] [address] Team Otr Truck Driver: Dana Mendoza [facility] [id number] Health Population Health Case Information Case Priority: None Programs: -- Referral Source: Pipeline Inspector Referral Reason: Care coordination Case Type: High Risk Adult Risk Score: -- Case Status: Enrolled (June 19, 2025) Date Assigned: June 19, 2025 Assigned By: Semaj Champion Date Enrolled: June 19, 2025 Assigned Primary Personnel: Semaj Champion Assigned Secondary Personnel: -- Case Physician: Aimee Irwin Problems Ongoing ADHD Anxiety BMI 28.0-28.9,adult BMI 31.0-31.9,adult Depressed mood Essential hypertension Fatigue Hematochezia Hypothyroidism IBS - Irritable bowel syndrome Insomnia Internal derangement of right knee Lyme disease Migraine without aura Moderate recurrent major depression Overweight Post-trauma response Shoulder pain Sleep disorder Smoker Historical No qualifying data Procedure/Surgical History Colonoscopy (2019). Home Medications aspirin, 81 mg, Oral, Daily atorvastatin, 40 mg, Oral, Daily Effexor XR 75 mg Cap-ER, 75 mg= 1 cap(s), Oral, Daily, 1 refills hyoscyamine 0.375 mg ER Tab, 0.375 mg= 1 tab(s), Oral, Daily, 3 refills levothyroxine 100 mcg (0.1 mg) Tab, 100 mcg= 1 tab(s), Oral, Daily, 3 refills nicotine 21 mg/24 hr Transderm ER Film, 1 patch(es), Topical, Daily Pantoprazole [address] Tab, 40 mg= 1 tab(s), Oral, Daily, 3 refills Seroquel, 25 mg, Oral, Bedtime, PRN Allergies Percocet (Unknown) minocycline (Unknown) traMADol (Unknown) Imitrex Social History Alcohol Current. Beer. 1-2 times per week., 03/05/2025 Substance Abuse - Denies Substance Abuse, 12/18/2013 Past. Marijuana. 1-2 times per month. Previous treatment: None., 03/05/2025 Tobacco 5-9 cigarettes (between 1/4 to 1/2 pack)/day in last 30 days Tobacco Use:. Never Smokeless Tobacco Use:. Household tobacco concerns: No., 05/04/2025 Family History Acute myocardial infarction: Father. Diabetes mellitus type 1: Father. Stroke: Father. Screenings and Assessments 06/19/25 11:14:00 Result Name Value Comment Phone Call Monitoring Consent Agreed to continue call Phone Verification Patient Information Full name, street address and date of verified CM Program Enrollment Provides verbal consent for enrollment Goals and Interventions Care Plan Progress Note Admit Date: 06/17/25 [facility] Date of Discharge: 06/18/25 Follow-up appointment scheduled? yes, 06/26/25 with PCP at 1300 Did you understand your discharge instructions? yes Are you able to follow them? yes Did you receive new medications? yes, ASA 81 mg QD, Atorvastatin 40 mg QD, nicotine patch 21 mg/24 hr patch daily, Losartan stopped Have you filled the Rx's? yes Are you taking them as prescribed? yes Are you having difficulty eating or swallowing your pills? no Are you having any stomach upset, diarrhea or constipation? no How are you sleeping? sleeping better these days, especially following the hospital Are you having any pain? no Do you have everything you need at home to care for yourself? 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 Readmission risk is unavailable. Reviewed d/c instructions and dx of: NSTEMI with patient. Reviewed purpose and side effects of newmedications with patient. Patient PCP is out of office, medications reviewed and updated, will needto be reconciled at time of OV. Patient underwent heart cath 06/18/25, RRA, no PCI. Patient to follow low- cholesterol diet. Patient states he is feeling 'good.' Denies any further CP or SOB since d/c.Patient is active at home with his 2 children ages, 3 and 5. Patient notes some bruising to right wrist with minimal swelling at site, denies pain. Patient is eating good and drinking good. No bowel or urinary issues reported. Patient stated his is a nurse and is taking good care of him. CN explained [facility] program and gave CN contact number, Reviewed the following appointments with patient: PCP 06/26/25 at 1300, [facility] cardiology 07/21/25. No further questions or concerns at this time. Communication Events Date: June 19, 2025 Method: Phone call Type: Outbound Duration (min): 9 Outcome: Case discussion Contact Type: Patient Contact Name: CHEL CHAPARRO Notes: APPRENTICE ELECTRICIAN#1- See APPRENTICE ELECTRICIAN note. Created By: Semaj Champion RNKettering Health Troy 06-18-2025 aPTT Coag (Lia) [Time]115 sCritically highBon Secours Samaritan Hospitalment on above: IV Heparin Therapy Range: 62.0-94.0 Interpretation and review of laboratory resultsAbnormalBon Secours Mercy Health [facility] Sec[facility] Mercy HealthaPTT Coag (Bld) [Time]115.0 sCritically high23.1-33.7 [facility] CenterComment on above:Result Comment: IV Heparin Therapy Range: 62.0-94.0Performed By: #### CP, CDP, TROPI, LIP, SALI #### [address] [place] [id number] Team Otr Truck Driver: Dana Mendoza MDaPTDavis Coag (Bld) [Time]93.2 sCritically highCarilion Roanoke Memorial HospitalComment on above: IV Heparin Therapy Range: 62.0-94.0 Interpretation and review of laboratory resultsAbnoAvera St. Benedict Health CenteraPTT Coag (Bld) [Time]93.2 sCritically high23.1-33.7 [facility] Medical CenterComment on above:Result Comment: IV Heparin Therapy Range: 62.0-94.0Performed By: #### CP, CDP, TROPI, LIP, SALI #### [address] [place], [facility]83 Team Otr Truck Driver: Juan Brooks Metab w/rfx MGon [id number] gap [Moles/Vol]11 mmol/LNormal9-16[facility] CenterComment on above:Performed By: #### CP, CDP, TROPI, LIP, SALI #### [address] [place], [place] [address] Team Otr Truck Driver: Dana Mendoza MDBUN/CRE [id number] [facility] Comment on above:Performed By: #### CP, CDP, TROPI, LIP, SALI #### [address] [place] [id number] Team Otr Truck Driver: LORETO Brooksalcium [Mass/Vol]8.5 mg/dLLow8.6-10.4[facility] CenterComment on above:Performed By: #### CP, CDP, TROPI, LIP, SALI #### [address] [place], [facility]83 Team Otr Truck Driver: LORETO Brookshloride [Moles/Vol]107 mmol/UOkmzvz74-760KsedqKettering Health – Soin Medical CenterComment on above:Performed By: #### CP, CDP, TROPI, LIP, SALI #### [address] [place], [facility]83 Team Otr Truck Driver: LORETO BrooksO2 [Moles/Vol]21 mmol/KXnnzgn63-69FeeboKettering Health – Soin Medical CenterComment on above:Performed By: #### CP, CDP, TROPI, LIP, SALI #### [address] [place], [facility]83 Team Otr Truck Driver: LORETO Brooksreatinine [Mass/Vol]0.7 mg/dLNormal0.70-1.20[facility] CenterComment on above:Performed By: #### CP, CDP, TROPI, LIP, SALI #### [address] [place], [facility]83 Team Otr Truck Driver: Dana Mendoza MDGFR/1.73 sq M.predicted among non-blacks MDRD (S/P/Bld) [Vol rate/Area]mL/min/{1.73_m2}Normal>60[facility] CenterComment on above:Result Comment: These results are not intended for use in patients <18 years of age. eGFR results are calculated without a race factor using the 2020 CKD-EPI equation. Careful clinical correlation is recommended, particularly when comparing to results calculated using previous equations. The CKD-EPI equation is less accurate in patients with extremes of muscle mass, extra-renal metabolism of creatine, excessive creatine ingestion, or following therapy that affects renal tubular secretion.Performed By: #### CP, CDP, TROPI, LIP, SALI #### [address] [place], [facility]83 Team Otr Truck Driver: Dana Mendoza MDGlucose [Mass/Vol]101 mg/kFCsay04-07Ybhtr [facility] Medical CenterComment on above:Performed By: #### CP, CDP, TROPI, LIP, SALI #### [address] [place] [address] Team Otr Truck Driver: GEOFFREY Brooksotassium [Moles/Vol]3.5 mmol/LLow3.7-5.3Mlouis stokes cle[facility] va medical centery Concord HospitalComment on above:Performed By: #### CP, CDP, TROPI, LIP, SALI #### [address] [place] [address] Team Otr Truck Driver: JAN Brooksodium [Moles/Vol]139 mmol/JDpalzn126-164GlyagKettering Health – Soin Medical CenterComment on above:Performed By: #### CP, CDP, TROPI, LIP, SALI #### [address] [place] [address] Team Otr Truck Driver: Dana Mendoza MDUrea nitrogen [Mass/Vol]7 mg/dLNormal6-20[facility] CenterComment on above:Performed By: #### CP, CDP, TROPI, LIP, SALI #### [address] [place] [address] Team Otr Truck Driver: Walt Brooksowensboro health regional hospital Metabolic Panel w/ Reflex to MGon 06-18-2025 Anion gap [Moles/Vol]11 mmol/L9 - 16 mmol/LBon [facility] SystemCalcium [Mass/Vol]8.5 mg/dLLow8.6 - 10.4 mg/dLBon Secours [facility] HealthChloride [Moles/Vol]107 mmol/L98 - 107 mmol/LBon [facility] HealthCO2 [Moles/Vol]21 mmol/L20 - 31 mmol/LBon [facility] SystemCreatinine [Mass/Vol]0.7 mg/dL0.70 - 1.20 mg/dLBon [facility] HealthEst, Glom Filt Rate- PINFBon [facility] SystemComment on above: These results are not intended for use in patients <18 years of age. eGFR results are calculated without a race factor using the 2020 CKD-EPI equation. Careful clinical correlation is recommended, particularly when comparing to results calculated using previous equations. The CKD-EPI equation is less accurate in patients with extremes of muscle mass, extra-renal metabolism of creatine, excessive creatine ingestion, or following therapy that affects renal tubular secretion. Glucose [Mass/Vol]101 mg/lAVmqe35 - 99 mg/dLBon [facility] Interpretation and review of laboratory resultsAbnormalCarilion Roanoke Memorial Hospital Potassium [Moles/Vol]3.5 mmol/LLow3.7 - 5.3 mmol/LBon SecAcadian Medical Center HealthSodium [Moles/Vol]139 mmol/L136 - 145 mmol/LBon SecSelect Medical Specialty Hospital - YoungstownUrea nitrogen [Mass/Vol]7 mg/dL6 - 20 mg/dLBon [facility] SystemUrea nitrogen/Creatinine [Mass ratio]10 mg/mg9 - 20Bon [facility] SystemCBC auto differentialon [id number] (Bld) [#/Vol]0.07 10*3/uLBon Secours [facility] Health Basophils/100 WBC (Bld)1 %0 - 2 %[facility] Mercy HealthEosinophils (Bld) [#/Vol]0.12 10*3/uLBon Secours Mercy HealthEosinophils/100 WBC (Bld)1 %1 - 4 % [facility] Sec[facility] Mercy HealthErythrocyte distribution width (RBC) [Ratio]13.9 %11.8 - 14.4 %[facility] HealthHematocrit (Bld) [Volume fraction]39.8 %Low40.7 - 50.3 %Bon SecVeterans Health Administrationy HealthHemoglobin (Bld) [Mass/Vol]13.6 g/dL13.0 - 17.0 g/dLBon SecVeterans Health Administrationy [facility] HospitalImmature granulocytes (Bld) [#/Vol]0.03 10*3/uLBon Secours Mercy [facility] HospitalImmature granulocytes/100 WBC (Bld)0 %0Bon [facility] HealthInterpretation and review of laboratory resultsAbnormalBon [facility] Medical Centery [facility] Community HospitalLymphocytes/100 WBC (Bld)40 %24 - 43 %[facility] Lymphocytes/100 WBC (Bld)4.75 %HighBon Mercy Health St. Anne HospitalH (RBC) [Entitic mass]30.5 pg25.2 - 33.5 pgReston Hospital CenterHC (RBC) [Mass/Vol]34.2 g/dL 28.4 - 34.8 g/dLBon SecKettering Health Greene MemorialV (RBC) [Entitic vol]89.2 fL82.6 - 102.9 fLCarilion Roanoke Memorial HospitalMonocytes/100 WBC (Bld)5 %3 - 12 %Bon [facility] SystemMonocytes/100 WBC (Bld)0.64 %[facility] HospitalNeutrophils/100 WBC (Bld)52 %36 - 65 %[facility] HospitalNucleated RBC/100 WBC (Bld) [Ratio]0 %0.0 per 100 WBCCarilion Roanoke Memorial HospitalPlatelet mean volume (Bld) [Entitic vol]10.5 fL8.1 - 13.5 fLCarilion Roanoke Memorial HospitalPlatelets (Bld) [#/Vol] 322 10*3/uLBon [facility] Health SystemRBC (Bld) [#/Vol]4.46 10*6/uL4.21 - 5.77 m/uL [facility] HospitalSegmented neutrophils/100 WBC (Bld)6.18 %[facility] Memorial HospitalWBC other (Bld) [#/Vol]11.8HighVirginia Hospital CenterCBC with Diffon [id number]. Basophil0.07 k/uLNormal0.00-0.20[facility] CenterComment on above:Performed By: #### URIEL, CDP, TROPI, LIP, SALI #### Lab [address] [place] [address] Team Otr Truck Driver: Manuel Brooks.Imm.Granulocyte0.03 k/uLNormal0.00-0.30[facility] Medical CenterComment on above:Performed By: #### CP, CDP, TROPI, LIP, SALI #### [address] [place], [place] [address] Team Otr Truck Driver: Manuel Brooks.Neutrophil (Seg)6.18 k/uLNormal1.50-8.10[facility] Medical CenterComment on above:Performed By: #### CP, CDP, TROPI, LIP, SALI #### [address] [place], [place] [address] Team Otr Truck Driver: Dana Mendoza MDBasophils/100 WBC (Bld)1 %Normal0-2MercTrinity Health System East Campus HospitalComment on above:Performed By: #### CP, CDP, TROPI, LIP, SALI #### [address] [place], [place] [address] Team Otr Truck Driver: Dana Mendoza MDEosinophils (Bld) [#/Vol]0.12 10*3/uLNormal 0.00-0.44[facility] Medical CenterComment on above:Performed By: #### CP, CDP, TROPI, LIP, SALI #### [address] [place], [place] [address] Team Otr Truck Driver: CAMILLA Brooksosinophils/100 WBC (Bld)1 %Normal1-4[facility] Medical CenterComment on above:Performed By: #### CP, CDP, TROPI, LIP, SALI #### [address] [place], [place] [address] Team Otr Truck Driver: Dana Mendoza MDErythrocyte distribution width (RBC) [Ratio]13.9 % Ggpjry38.8-14.4[facility] Medical CenterComment on above:Performed By: #### CP, CDP, TROPI, LIP, SALI #### [address] [place], [facility]83 Team Otr Truck Driver: Dana Mendoza MDHematocrit (Bld) [Volume fraction]39.8 %Low 40.7-50.3Mer[facility] Concord HospitalComment on above:Performed By: #### CP, CDP, TROPI, LIP, SALI #### [address] [place], [place] [id number] Team Otr Truck Driver: Dana Mendoza MDHemoglobin (Bld) [Mass/Vol]13.6 g/dLNormal 13.0-17.0[facility] Medical CenterComment on above:Performed By: #### CP, CDP, TROPI, LIP, SALI #### [address] [place], [facility]83 Team Otr Truck Driver: Rick Brooksmature granulocytes/100 WBC (Bld)0 %Rkvnzr4CwjymKettering Health – Soin Medical CenterComselect specialty hospital-[facility] on above:Performed By: #### CP, CDP, TROPI, LIP, SALI #### [address] [place], [facility]83 Team Otr Truck Driver: Dana Mendoza MDLymphocytes (Bld) [#/Vol]4.75 10*3/uLHigh1.10-3.70 [facility] So[facility] Medical CenterComment on above:Performed By: #### CP, CDP, TROPI, LIP, SALI #### [address] [place], [place] [id number] Team Otr Truck Driver: Jesús Brooksmphocytes/100 WBC (Bld)40 %Dhebju51-98EehrmKettering Health – Soin Medical CenterComment on above:Performed By: #### CP, CDP, TROPI, LIP, SALI #### [address] [place] [address] Team Otr Truck Driver: CINTIA Brooks (RBC) [Entitic mass]30.5 sbAleove26.2-33.5 [facility] So[facility] Medical CenterComselect specialty hospital-[facility] on above:Performed By: #### CP, CDP, TROPI, LIP, SALI #### [address] [place], [place] [id number] Team Otr Truck Driver: Dana Sturtz, MDMCHC (RBC) [Mass/Vol]34.2 g/xLSswqas18.4-34.8[facility] Administration HospitalComment on above:Performed By: #### CP, CDP, TROPI, LIP, SALI #### [address] [place], [place] [id number] Team Otr Truck Driver: PATRICK BrooksCV (RBC) [Entitic vol]89.2 kGDclmlw93.6-102.9 [facility] HospitalComment on above:Performed By: #### CP, CDP, TROPI, LIP, SALI #### [address] [place], [place] [id number] Team Otr Truck Driver: PATRICK Brooksonocytes (Bld) [#/Vol]0.64 10*3/uLNormal0.10-1.20 [facility] CenterComment on above:Performed By: #### CP, CDP, TROPI, LIP, SALI #### [address] [place], [place] [id number] Team Otr Truck Driver: PATRICK Brooksonocytes/100 WBC (Bld)5 %Normal3-12[facility] CenterComment on above:Performed By: #### CP, CDP, TROPI, LIP, SALI #### [address] [place], [place] [address]83 Team Otr Truck Driver: Gene Brooksophil (Seg)52 %Qyqnvs36-85Qixmx [facility]iffin HospitalComment on above:Performed By: #### CP, CDP, TROPI, LIP, SALI #### [address] [place], [place] [address]83 Team Otr Truck Driver: Dana Mendoza MDNRBC Automated0.0 per 100 WBCNormal0.0[facility] HospitalComment on above:Performed By: #### CP, CDP, TROPI, LIP, SALI #### [address] [place] [address] Team Otr Truck Driver: Amrit Brooks mean volume (Bld) [Entitic vol]10.5 fL Normal8.1-13.5[facility] CenterComment on above:Performed By: #### CP, CDP, TROPI, LIP, SALI #### [address] [place] [address] Team Otr Truck Driver: Baldomero Brooks (Bld) [#/Vol]322 10*3/vCCwoita783-004 [facility] CenterComment on above:Performed By: #### CP, CDP, TROPI, LIP, SALI #### [address] [place] [address] Team Otr Truck Driver: KENY Brooks (Bld) [#/Vol]4.46 10*6/uLNormal4.21-5.77[facility] CenterComment on above:Performed By: #### CP, CDP, TROPI, LIP, SALI #### [address] [place] [address] Team Otr Truck Driver: SHILPA Brooks (Bld) [#/Vol]11.8 10*3/uLHigh3.5-11.3MGrand Lake Joint Township District Memorial HospitalComment on above:Performed By: #### CP, CDP, TROPI, LIP, SALI #### [address] [place] [address] Team Otr Truck Driver: Dana Mendoza MDCT CHEST PULMONARY EMBOLISM W CONTRASTon [id number] CHEST PULMONARY EMBOLISM W CONTRASTEXAMINATION: CTA OF THE CHEST, 06/17/2025 6:14 am TECHNIQUE: CTA of the chest was performed after the administration of intravenous contrast. Multiplanar reformatted images are provided for review. MIP images are provided for review. Automated exposure control, iterative reconstruction, and/or weight based adjustment of the mA/kV was utilized to reduce the radiation dose to as low as reasonably achievable. COMPARISON: Chest radiograph earlier today. HISTORY: ORDERING SYSTEM PROVIDED HISTORY: Pleuritic chest pain, hypotensive. TECHNOLOGIST PROVIDED HISTORY: Pleuritic chest pain, hypotensive. Additional Contrast? 1 FINDINGS: Pulmonary Arteries: Pulmonary arteries are adequately opacified for evaluation. No evidence of intraluminal filling defect to suggest pulmonary embolism. Main pulmonary artery is normal in caliber. Mediastinum: Subtle patchy soft tissue densities within the anterior upper mediastinum. No discrete anterior mediastinal mass. An acute aortic abnormality is not identified. The heart is normal in size. No pericardial effusion. No discrete lymphadenopathy by CT size criteria. Lungs/Pleura: Mild diffuse bronchial wall thickening. Mild tracheobronchial secretions. Mild dependent atelectasis. No pneumothorax or pleural effusion. Subtle areas of ground-glass opacities within the right lower lobe in a curvilinear distribution favor atelectasis versus developing infection. Upper Abdomen: Limited images of the upper abdomen demonstrate no acute abnormality. Soft Tissues/Bones: No acute bone or soft tissue abnormality. IMPRESSION: No evidence of pulmonary embolism. Mild diffuse bronchial wall thickening with mild tracheobronchial secretions. Correlate for bronchitis. Subtle linear ground-glass opacities within the right lower lobe favor atelectasis versus developing infection. Interpreted by: Victor Manuel Emmanuel DO Signed by: Victor Manuel Emmanuel DO 06/18/25 Final resultNormalMercy Midstate Medical CenterCardiac procedureon [id number] surface area Derived from formula2.16 m2[facility]- Coronary Angiography Brief Post Operative Note: No significant coronary artery disease. Normal left ventricular end diastolic pressure (LVEDP). The patient developed recurrence of significant chest pressure on engagement of the left main which resolved with disengagement suggestive but not diagnostic of coronary vasospasm. Continue standard risk factor modification as clinically indicated and consider alternative etiologies of the patients symptoms. Coronary Findings Diagnostic Dominance: Right Left Main: The vessel was visualized by angiography. Size of vessel >=2.0 mm. The vessel is angiographically normal. Left Anterior Descending: The vessel was visualized by angiography. Size of vessel >=2.0 mm. Thevessel is angiographically normal. Left Circumflex: The vessel was visualized by angiography. Size of vessel >=2.0 mm. The vessel is angiographically normal. Right Coronary Artery: The vessel was visualized by angiography. Size of vessel >=2.0 mm. The vessel is angiographically normal. Intervention No interventions have been documented. Bleeding Risk Calculator Bleeding Risk points = 0.BSMH CV CPACS HEMOBon [facility] SystemRadiology Study observation (narrative)[facility] HospitalEKG Rhythm Stripon [id number] SHRINERS HOSPITAL LABCarilion Roanoke Memorial HospitalMagnesiumon 50-10-1915Hxcetlnmv [Mass/Vol]1.9 mg/dL1.6 - 2.6 mg/dLBon [facility]. Mary'S Healthcare CenterMagnesium [Mass/Vol]1.9 mg/dLNormal1.6-2.6MercYale New Haven HospitalComment on above:Performed By: #### CP, CDP, TROPI, LIP, SALI #### Lab [address] [place] [address] [place] [address] Team Otr Truck Driver: Raza Brooks Panel Informationon 10-63-1852Vvq [facility] SystemTroponinon [id number] I.cardiac High sensitivity method [Mass/Vol]17 ng/L0 - 22 ng/LBon [facility] SystemComment on above:High Sensitivity Troponin values cannot be compared with other Troponin methodologies.Troponin, High Sens17 ng/LNormal0-22[facility] CenterComselect [facility] on above:Result Comment: High Sensitivity Troponin values cannot be compared with other Troponin methodologies.Performed By: #### CP, CDP, TROPI, LIP, SALI #### [address] [place] [address] Team Otr Truck Driver: Halle Brooks [id number] Coag (Bld) [Time]39.8 sHigh [facility] HospitalComment on above: IV Heparin Therapy Range: 62.0-94.0 Interpretation and review of laboratory resultsAbnormalVcu Medical CenteraPTT Coag (Bld) [Time]39.8 sHigh23.1-33.7[facility] CenterComment on above:Result Comment: IV Heparin Therapy Range: 62.0-94.0Performed By: #### CP, CDP, TROPI, LIP, SALI #### Lab [address] [place] [address] Team Otr Truck Driver: Dana Mendoza MDaPTT Coag (Bld) [Time]28 sBon [facility] Comment on above: IV Heparin Therapy Range: 62.0-94.0 [facility] HospitalaPTT Coag (Bld) [Time]28.0 nGrqnvi52.1-33.7MerHartford HospitalComment on above:Result Comment: IV Heparin Therapy Range: 62.0-94.0Performed By: #### CP, CDP, TROPI, LIP, SALI #### Lab [address] [place] [address] [place] [address] Team Otr Truck Driver: Dana Mendoza MDAcetaminophenon 31-37-7540Efpwnkhqiupbo [Mass/Vol] ug/dQAsv69-76PbcdcKettering Health – Soin Medical CenterComment on above:Result Comment: Specimen hemolysis has exceeded the interference as defined by Isak. Value may be falsely increased. Suggest recollection if clinically indicated.Performed By: #### TSH #### Lab [address] [place] [address] [place] [address] Team Otr Truck Driver: Mandy Brooksophen Levelon [id number] [Mass/Vol]ug/mLLow10 - 30 ug/mLCarilion Roanoke Memorial HospitalComment on above:Specimen hemolysis has exceeded the interference as defined by Isak. Value may be falsely increased. Suggest recollection if clinically indicated. Interpretation and review of laboratory resultsAbnormalVcu Medical CenterCBC with Auto Differentialon [id number] (Bld) [#/Vol]0.1 10*3/uLBon [facility] SystemBasophils/100 WBC (Bld)1 %0 - 2 %[facility] HospitalEosinophils (Bld) [#/Vol]0.09 10*3/uLBon [facility] SystemEosinophils/100 WBC (Bld)1 %1 - 4 %[facility] HospitalErythrocyte distribution width (RBC) [Ratio]13.7 %11.8 - 14.4 %[facility] Hematocrit (Bld) [Volume fraction]48.8 %40.7 - 50.3 %[facility] Hemoglobin (Bld) [Mass/Vol]16.5 g/dL13.0 - 17.0 g/dLBon [facility] Immature granulocytes (Bld) [#/Vol]0.08 10*3/uLBon [facility] SystemImmature granulocytes/100 WBC (Bld)0 %0[facility] HospitalInterpretation and review of laboratory resultsAbnormalCarilion Roanoke Memorial HospitalLymphocytes/100 WBC (Bld)27 %24 - 43 %[facility] HospitalLymphocytes/100 WBC (Bld)5.14 %HighReston Hospital CenterH (RBC) [Entitic mass]30.3 pg25.2 - 33.5 pgReston Hospital CenterHC (RBC) [Mass/Vol]33.8 g/dL28.4 - 34.8 g/dLBon [facility] HospitalV (RBC) [Entitic vol]89.7 fL82.6 - 102.9 fLCarilion Roanoke Memorial Hospital Monocytes/100 WBC (Bld)5 %3 - 12 %[facility] HospitalMonocytes/100 WBC (Bld)0.96 %[facility] HospitalNeutrophils/100 WBC (Bld)66 %High36 - 65 %[facility] HospitalNucleated RBC/100 WBC (Bld) [Ratio]0 %0.0 per 100 WBCCarilion Roanoke Memorial HospitalPlatelet mean volume (Bld) [Entitic vol]10.2 fL8.1 - 13.5 fL [facility] HospitalPlatelets (Bld) [#/Vol]444 10*3/uLBon [facility] SystemRBC (Bld) [#/Vol]5.44 10*6/uL4.21 - 5.77 m/uLCarilion Roanoke Memorial Hospital Segmented neutrophils/100 WBC (Bld)12.4 %LifePoint HospitalsWBC other (Bld) [#/Vol]18.8HVCU Medical Center with Diffon [id number]. Basophil0.10 k/uLNormal0.00-0.20[facility] Comment on above:Performed By: #### CP, CDP, TROPI, LIP, SALI #### Lab [address] [place] [address] [place] [address] Team Otr Truck Driver: Manuel Brooks.Imm.Granulocyte0.08 k/uLNormal0.00-0.30[facility] CenterComment on above:Performed By: #### CP, CDP, TROPI, LIP, SALI #### [address] [place], [place] [address] Team Otr Truck Driver: Manuel Brooks.Neutrophil (Seg)12.40 k/uLHigh1.50-8.10[facility] HospitalComment on above:Performed By: #### CP, CDP, TROPI, LIP, SALI #### [address] [place] [address] Team Otr Truck Driver: Dana Mendoza MDBasophils/100 WBC (Bld)1 %Normal0-2[facility] Medical CenterComment on above:Performed By: #### CP, CDP, TROPI, LIP, SALI #### [address] [place] [address] Team Otr Truck Driver: Dana Mendoza MDEosinophils (Bld) [#/Vol]0.09 10*3/uLNormal 0.00-0.44[facility] HospitalComment on above:Performed By: #### CP, CDP, TROPI, LIP, SALI #### [address] [place] [address] Team Otr Truck Driver: CAMILLA Brooksosinophils/100 WBC (Bld)1 %Normal1-4MerOhio Valley Surgical Hospital HospitalComment on above:Performed By: #### CP, CDP, TROPI, LIP, SALI #### [address] [place], [facility]83 Team Otr Truck Driver: Dana Mendoza MDErythrocyte distribution width (RBC) [Ratio]13.7 % Gcksjd18.8-14.4[facility] CenterComment on above:Performed By: #### CP, CDP, TROPI, LIP, SALI #### [address] [place] [address] Team Otr Truck Driver: Dana Mendoza MDHematocrit (Bld) [Volume fraction]48.8 %Normal 40.7-50.3MGrand Lake Joint Township District Memorial HospitalComment on above:Performed By: #### CP, CDP, TROPI, LIP, SALI #### [address] [place] [address] Team Otr Truck Driver: Dana Mendoza MDHemoglobin (Bld) [Mass/Vol]16.5 g/dLNormal 13.0-17.0[facility] CenterComment on above:Performed By: #### CP, CDP, TROPI, LIP, SALI #### [address] [place] [address] Team Otr Truck Driver: Dana Mendoza MDImmature granulocytes/100 WBC (Bld)0 %Icgled1PgzrlKettering Health – Soin Medical CenterComment on above:Performed By: #### CP, CDP, TROPI, LIP, SALI #### [address] [place] [address] Team Otr Truck Driver: Dana Mendoza MDLymphocytes (Bld) [#/Vol]5.14 10*3/uLHigh1.10-3.70 [facility] CenterComselect specialty hospital[facility] on above:Performed By: #### CP, CDP, TROPI, LIP, SALI #### [address] [place] [id number] Team Otr Truck Driver: Dana Mendoza MDLymphocytes/100 WBC (Bld)27 %Uxlbut91-59OhiueKettering Health – Soin Medical CenterComment on above:Performed By: #### CP, CDP, TROPI, LIP, SALI #### [address] [place], [facility]83 Team Otr Truck Driver: PATRICK BrooksCH (RBC) [Entitic mass]30.3 ktFjqkas29.2-33.5 [facility] CenterComment on above:Performed By: #### CP, CDP, TROPI, LIP, SALI #### [address] [place], [place] [address] Team Otr Truck Driver: PATRICK BrooksCHC (RBC) [Mass/Vol]33.8 g/oSYytwdq74.4-34.8[facility] CenterComment on above:Performed By: #### CP, CDP, TROPI, LIP, SALI #### [address] [place], [place] [address] Team Otr Truck Driver: PATRICK BrooksCV (RBC) [Entitic vol]89.7 vITemafd54.6-102.9 [facility] CenterComment on above:Performed By: #### CP, CDP, TROPI, LIP, SALI #### [address] [place], [facility]83 Team Otr Truck Driver: PATRICK Brooksonocytes (Bld) [#/Vol]0.96 10*3/uLNormal0.10-1.20 [facility] CenterComment on above:Performed By: #### CP, CDP, TROPI, LIP, SALI #### [address] [place], [facility]83 Team Otr Truck Driver: PATRICK Brooksonocytes/100 WBC (Bld)5 %Normal3-12[facility] CenterComment on above:Performed By: #### CP, CDP, TROPI, LIP, SALI #### [address] [place], [facility]83 Team Otr Truck Driver: Gene Brooksophil (Seg)66 %Jlgx79-60YtawvKettering Health – Soin Medical Center Comment on above:Performed By: #### CP, CDP, TROPI, LIP, SALI #### [address] [place] [address] Team Otr Truck Driver: VERN Brooks Automated0.0 per 100 WBCNormal0.0[facility] CenterComment on above:Performed By: #### CP, CDP, TROPI, LIP, SALI #### [address] [place], [place] [address] Team Otr Truck Driver: Amrit Brooks mean volume (Bld) [Entitic vol]10.2 fL Normal8.1-13.5[facility] Medical CenterComment on above:Performed By: #### URIEL, CDP, TROPI, LIP, SALI #### [address] [place] [address] Team Otr Truck Driver: Baldomero Brooks (Bld) [#/Vol]444 10*3/rZVuqafl566-850 [facility] CenterComment on above:Performed By: #### CP, CDP, TROPI, LIP, SALI #### [address] [place] [address] Team Otr Truck Driver: KENY Brooks (Bld) [#/Vol]5.44 10*6/uLNormal4.21-5.77[facility] CenterComment on above:Performed By: #### CP, CDP, TROPI, LIP, SALI #### [address] [place], [place] [address]83 Team Otr Truck Driver: SHILPA Brooks (Bld) [#/Vol]18.8 10*3/uLHigh3.5-11.3MMarietta Memorial Hospital HospitalComment on above:Performed By: #### CP, CDP, TROPI, LIP, SALI #### Lab [address] [place] [address] Team Otr Truck Driver: Dana Mendoza MDCKon [id number] [Catalytic activity/Vol]64 U/L39 - 308 U/LBon SecPlanet DailyBon Secsouth coastal health campus emergency department HitsbookCMPon [id number] [Mass/Vol]4.3 g/dL3.5 - 5.2 g/dLBon [facility] HitsbookAlbumin/Globulin [Mass ratio]1.3 {ratio}1.0 - 2.5Bon [facility] HitsbookALP [Catalytic activity/Vol]74 U/L40 - 129 U/LBon [facility] HospitalPlanet DailyALT [Catalytic activity/Vol]32 U/L10 - 50 U/LBon [facility] HospitalPlanet DailyAnion gap [Moles/Vol]20 mmol/LHigh9 - 16 mmol/LBon [facility] HospitalPlanet DailyAST [Catalytic activity/Vol]24 U/L10 - 50 U/LBon [facility] HospitalPlanet DailyComment on above:Specimen hemolysis has exceeded the interference as defined by Isak. Value may be falsely increased. Suggest recollection if clinically indicated. Bilirubin [Mass/Vol]1 mg/dL0.00 - 1.20 mg/dLBon [facility] HospitalPlanet DailyCalcium [Mass/Vol]9.1 mg/dL8.6 - 10.4 mg/dLBon [facility] HospitalPlanet DailyChloride [Moles/Vol] 100 mmol/L98 - 107 mmol/LBon [facility] HospitalPlanet DailyCO2 [Moles/Vol]16 mmol/LLow20 - 31 mmol/LBon [facility] HospitalPlanet DailyCreatinine [Mass/Vol]1.0 mg/dL0.70 - 1.20 mg/dLBon [facility] HospitalPlanet DailyEst, Glom Filt Rate- PINFBon [facility] HospitalPlanet Daily Comment on above: These results are not intended for use in patients <18 years of age. eGFR results are calculated without a race factor using the 2020 CKD-EPI equation. Careful clinical correlation is recommended, particularly when comparing to results calculated using previous equations. The CKD-EPI equation is less accurate in patients with extremes of muscle mass, extra-renal metabolism of creatine, excessive creatine ingestion, or following therapy that affects renal tubular secretion. Glucose [Mass/Vol]122 mg/iVAbga81 - 99 mg/dLBon [facility] HospitalPlanet Daily Interpretation and review of laboratory resultsAbnormalBon [facility] HospitalPlanet Daily Potassium [Moles/Vol]4 mmol/L3.7 - 5.3 mmol/LBon SecWakoopa HealthComment on above:Specimen hemolysis has exceeded the interference as defined by Isak. Value may be falsely increased. Suggest recollection if clinically indicated. Protein [Mass/Vol]7.5 g/dL6.6 - 8.7 g/dLBon SecWakoopa HealthSodium [Moles/Vol]136 mmol/L136 - 145 mmol/LBon SecWakoopa HealthUrea nitrogen [Mass/Vol]12 mg/dL6 - 20 mg/dLBon SecWakoopa HealthUrea nitrogen/Creatinine [Mass ratio]12 mg/mg9 - 20Bon SecWakoopa HealthCardiac echo study Procedureon [id number] Sinus Valsalva3.2 cmBon SecWakoopa HealthAortic Sinus Valsalva Index1.52 cm/m2Bon SecWakoopa HealthAV Cusp Mmode2.2 cmBon SecWakoopa HealthAV Mean Hhkqdbix8olWyWgc SecWakoopa HealthAV Mean Velocity0.9 m/s Bon SeccFaresy HealthAV Peak Cxzvhdvy2tkRsYrv Secours NewChinaCareery HealthAV Peak Velocity1.3 m/sBon SeccFaresy HealthAV Velocity Vngyb9Psp SeccFaresy HealthAV VTI24.6 cmBon SecWakoopa HealthBody surface area Derived from formula2.15 m2Bon [facility] Ariisto HealthE/E' Lateral4.55Bon Secours NewChinaCareery HealthEF Vmrncfzpj54 %[employer] SecWakoopa HealthEst. RA Yonuqogz8adSjHdh Sec[facility] Ariisto Knox Community HospitalFractional Shortening 2D32 %28 - 44 %[employer] Interpretation and review of laboratory resultsAbnormalBon SecWakoopa Health IVSd1.4 cmAbnormal0.6 - 1.0 cmBon Secours NewChinaCareery HealthLA Area 2C16 cm2Bon [facility] Uk HealthcareDiscomixdownload.com Knox Community HospitalLA Area 4C15.8 cm2Bon [facility] Ariisto HealthLA Major Axis5.2 cmBon Secours NewChinaCareery HealthLA Minor Axis5.4 cmBon Secours Mercy HealthLA Volume BP39 mL18 - 58 mLBon Secours Mercy HealthLA Volume Index BP19 ml/m216 - 34 ml/m2 [facility] Mer[facility] HealthLA Volume Index MOD A2C19 ml/m216 - 34 ml/m2Bon [facility] Mer[facility] HealthLA Volume Index MOD A4C19 ml/m216 - 34 ml/m2[facility] LA Volume MOD A2C39 mL18 - 58 mLBon Secours Mercy HealthLA Volume MOD A4C39 mL18 - 58 mLBon Secours Mercy HealthLV E' Lateral Bvstrabf63.2 cm/sBon Secours Mercy HealthLV EDV A2C46 mLBon Secours Mercy HealthLV EDV A4C50 mLBon Secours Mercy HealthLV EDV Index A2C22 mL/m2Bon [facility] Mer[facility] HealthLV EDV Index A4C24 mL/m2 [facility] HealthLV Ejection Fraction A2C69 %Bon [facility] Mer[facility] HealthLV Ejection Fraction A4C60 %Bon [facility] Mer[facility] HealthLV ESV A2C14 mLBon Secours Mercy HealthLV ESV A4C20 mLBon Secours Mercy HealthLV ESV Index A2C7 mL/m2Bon [facility] Mer[facility] HealthLV ESV Index A4C10 mL/m2Bon Secours Mercy HealthLV Mass 2D 183.4 g88 - 224 gBon Secours Mercy HealthLV Mass 2D Index87.3 g/m249 - 115 g/m2 Bon [facility] Mer[facility] HealthLV RWT Ratio0.68Bon Secours Mercy HealthLVIDd3.8 cm Abnormal4.2 - 5.9 cmBon Secours Mercy HealthLVIDd Index1.81 cm/m2Bon [facility] Mercy HealthLVIDs2.6 cmBon Secours Mercy HealthLVIDs Index1.24 cm/m2Bon [facility] Mercy HealthLVOT Mean Iaityzcn1yjQuKxb Secours Mercy HealthLVOT Peak Gradient6 mmHgBon [facility] Mercy HealthLVOT Peak Velocity1.3 m/sBon [facility] Health LVOT VTI23.9 cmBon Secours Mercy HealthLVOT:AV VTI Index0.97Bon [facility] Mercy HealthLVPWd1.3 cmAbnormal0.6 - 1.0 cmBon Secours Mercy HealthMV A Velocity0.45 m/sBon [facility]ours Mercy HealthMV E Velocity0.51 m/sBon [facility] Hospitaljovanni Uk Healthcareaman Knox Community HospitalMV E Wave Deceleration Msvp366 msCarilion Roanoke Memorial Hospitalaman Knox Community HospitalMV E/A1.13Bon [facility] Hospitaljovanni Uk Healthcareaman HealthPV Max Velocity1.2 m/sBon [facility] Hospitaljovanni Uk Healthcareaman [facility] HospitalPV Peak Yjdvrayw7cuGtEdc [facility] Hospitaljovanni Uk Healthcareaman IcnfcjTUNT42vrNeZwu Secjovanni [facility] Parma Medical CenterSinotubular Junction2.6 cm [facility] Hospitalaman [facility] Community HospitalTAPSE2.5 cm1.7 cmCarilion Roanoke Memorial Hospitalaman Knox Community HospitalTR Max Velocity 2.32 m/sBon [facility] SystemTR Peak Iwclgbmf60gvWdCib [facility] Left Ventricle: Hyperdynamic left ventricular systolic function with a visually estimated EF of 70 - 75%. Left ventricle size is normal. Mildly increased wall thickness. Moderate septal thickening.Findings consistent with concentric remodeling. IVSd is 1.4 cm. LVPWd is 1.3 cm. Normal wall motion. Diastolic dysfunction present with normal LV EF. No LVOT obstruction at rest. LVOT pressure gradient does not significantly change with Valsalva. Tricuspid Valve: Trace regurgitation. No previous studies were available for comparison. No significant cardiac cause of chest pain was identified from this study. Left Ventricle Hyperdynamic left ventricular systolic function with a visually estimated EF of 70 - 75%. Left ventricle size is normal. Mildly increased wall thickness. Moderate septal thickening.Findings consistent with concentric remodeling. IVSd is 1.4 cm. LVPWd is 1.3 cm. Normal wall motion. Diastolic dysfunction present with normal LV EF. No LVOT obstruction at rest. LVOT pressure gradient does not significantly change with Valsalva. Right Ventricle Right ventricle size is normal. Normal systolic function. Left Atrium Left atrium size is normal. Right Atrium Right atrium size is normal. IVC/SVC IVC diameter is normal or and decreases greater than 50% during inspiration; therefore the estimated right atrial pressure is normal (~3 mmHg). IVC size is normal. Mitral Valve Valve structure is normal. No regurgitation. No stenosis noted. Tricuspid Valve Valve structure is normal. Trace regurgitation. Aortic Valve Valve structure is normal. No regurgitation. No stenosis. Pulmonic Valve The pulmonic valve visualization is suboptimal but appears to be functioning normally. Physiologically normal regurgitation. No stenosis noted. Ascending Aorta Aortic Sinus Valsalva is 3.2 cm. Sinotubular Junction is 2.6 cm. Pericardium No pericardial effusion. Study Details Image quality: adequate. Lumason contrast was given to enhance imaging.BS CV CPACSBon [facility] SystemRadiology Study observation (narrative)Bon [facility] Metabolic Profon [id number] [Mass/Vol]4.3 g/dLNormal 3.5-5.2[facility] HospitalComment on above:Performed By: #### CP, CDP, TROPI, LIP, SALI #### [address] [place] [address] Team Otr Truck Driver: Dana Mendoza MDAlbumin/Glob Ratio1.7Rtzzqz8.0-2.5[facility]state Medical CenterComment on above:Performed By: #### CP, CDP, TROPI, LIP, SALI #### [address] [place] [address] Team Otr Truck Driver: Jose Maria Brooksline Phos74 U/GJyrojs29-464Siesg Tiffin HospitalComment on above:Performed By: #### CP, CDP, TROPI, LIP, SALI #### [address] [place] [address] Team Otr Truck Driver: Dana Mendoza MDALT [Catalytic activity/Vol]32 U/MOgntwt11-70Bqbes Midstate Medical CenterComment on above:Performed By: #### CP, CDP, TROPI, LIP, SALI #### [address] [place] [address] Team [employer]tr Truck Driver: Stewart Brooks gap [Moles/Vol]20 mmol/LHigh9-16Mercy Concord HospitalComment on above:Performed By: #### CP, CDP, TROPI, LIP, SALI #### [address] [place], [place] [id number] Team Otr Truck Driver: Dana Mendoza MDAST [Catalytic activity/Vol]24 U/XOjocrw64-39YkcktKettering Health – Soin Medical CenterComment on above:Result Comment: Specimen hemolysis has exceeded the interference as defined by Isak. Value may be falsely increased. Suggest recollection if clinically indicated.Performed By: #### CP, CDP, TROPI, LIP, SALI #### [address] [place] [address] Team Otr Truck Driver: Dana Mendoza MDBilirubin [Mass/Vol]1.0 mg/dLNormal0.00-1.20[facility] Soin Medical CenterComment on above:Performed By: #### CP, CDP, TROPI, LIP, SALI #### [address] [place] [address] Team Otr Truck Driver: Dana Mendoza MDBUN/CRE Qaxaa48Osdier6-17Yfcta [facility] Comment on above:Performed By: #### CP, CDP, TROPI, LIP, SALI #### [address] [place] [address] Team Otr Truck Driver: LORETO Brooksalcium [Mass/Vol]9.1 mg/dLNormal8.6-10.4[facility] Soin Medical CenterComment on above:Performed By: #### CP, CDP, TROPI, LIP, SALI #### [address] [place] [address] Team Otr Truck Driver: LORETO Brookshloride [Moles/Vol]100 mmol/NOgbswq63-011RyqbhKettering Health – Soin Medical CenterComment on above:Performed By: #### CP, CDP, TROPI, LIP, SALI #### [address] [place] [address] Team Otr Truck Driver: Dana Mendoza MDCO2 [Moles/Vol]16 mmol/ZHjq12-23KnrnaKettering Health – Soin Medical CenterComment on above:Performed By: #### CP, CDP, TROPI, LIP, SALI #### [address] [place] [address] Team Otr Truck Driver: Dana Sturtz, MDCreatinine [Mass/Vol]1.0 mg/dLNormal0.70-1.20[facility] Soin Medical CenterComment on above:Performed By: #### URIEL CDP, TROPI, LIP, SALI #### [address] [place] [address] Team Otr Truck Driver: Dana Mendoza MDGFR/1.73 sq M.predicted among non-blacks MDRD (S/P/Bld) [Vol rate/Area]mL/min/{1.73_m2}Normal>60MerHartford HospitalComment on above:Result Comment: These results are not intended for use in patients <18 years of age. eGFR results are calculated without a race factor using the 2020 CKD-EPI equation. Careful clinical correlation is recommended, particularly when comparing to results calculated using previous equations. The CKD-EPI equation is less accurate in patients with extremes of muscle mass, extra-renal metabolism of creatine, excessive creatine ingestion, or following therapy that affects renal tubular secretion.Performed By: #### URIEL CDP, TROPI, LIP, SALI #### [address] [place] [address] Team Otr Truck Driver: Dana Mendoza MDGlucose [Mass/Vol]122 mg/pPWuyz75-48UxnnxGrand Lake Joint Township District Memorial HospitalComment on above:Performed By: #### URIEL CDP, TROPI, LIP, SALI #### [address] [place] [address] Team Otr Truck Driver: GEOFFREY Brooksotassium [Moles/Vol]4.0 mmol/LNormal3.7-5.3MGrand Lake Joint Township District Memorial HospitalComment on above:Result Comment: Specimen hemolysis has exceeded the interference as defined by Isak. Value may be falsely increased. Suggest recollection if clinically indicated.Performed By: #### CP, CDP, TROPI, LIP, SALI #### [address] [place] [address] Team Otr Truck Driver: GEOFFREY Brooksrotein [Mass/Vol]7.5 g/dLNormal6.6-8.7K[facility] Soin Medical CenterComment on above:Performed By: #### CP, CDP, TROPI, LIP, SALI #### [address] [place] [address] Team Otr Truck Driver: JAN Brooksodium [Moles/Vol]136 mmol/PBtmxtv738-669FucarKettering Health – Soin Medical CenterComment on above:Performed By: #### CP, CDP, TROPI, LIP, SALI #### [address] [place] [address] Team Otr Truck Driver: Dana Mendoza MDUrea nitrogen [Mass/Vol]12 mg/dLNormal6-20[facility] So[facility] Medical CenterComment on above:Performed By: #### CP, CDP, TROPI, LIP, SALI #### [address] [place] [address] Team Otr Truck Driver: LORETO Brooksreatine Kinaseon [id number] [Catalytic activity/Vol]64 U/HVflwre42-993RzjvhKettering Health – Soin Medical CenterComment on above:Performed By: #### CP, CDP, TROPI, LIP, SALI #### [address] [place], [place] [address] Team Otr Truck Driver: BOGDAN Brooksrug Scr, Abuse, Uron [id number](s),Ur NegativeNormalNEGVeterans Health Administration HospitalComment on above:Result Comment: Cutoff: 1000 ng/mLPerformed By: #### CP, CDP, TROPI, LIP, SALI #### [address] [place], [place] [address]83 Team Otr Truck Driver: Dana Mendoza MDBarbiturate(s),UrNegativeNormalNEGVeterans Health Administration HospitalComment on above:Result Comment: Cutoff: 200 ng/mlPerformed By: #### CP, CDP, TROPI, LIP, SALI #### [address] [place] [address] Team Otr Truck Driver: Dana Mendoza MDBenzodiazepine(s)NegativeNormalNEGMercy Concord HospitalComment on above:Result Comment: Cutoff: 200 ng/mlPerformed By: #### CP, CDP, TROPI, LIP, SALI #### [address] [place], [place] 40[address]783 Team Otr Truck Driver: LORETO Brooksannabinoid(s),UrNegativeNormalNEGMercy Concord HospitalComment on above:Result Comment: Cutoff: 50 ng/mlPerformed By: #### CP, CDP, TROPI, LIP, SALI #### [address] [place], [place] 137[address]83 Team Otr Truck Driver: LORETO Brooksocaine MetaboliteNegativeNormalNEGMercy Concord HospitalComselect specialty hospital[facility] on above:Result Comment: Cutoff: 300 ng/mlPerformed By: #### CP, CDP, TROPI, LIP, SALI #### [address] [place] [address] Team Otr Truck Driver: Dana Mendoza MDFentanyl, UrineNegativeNormalNEGMercy Midstate Medical CenterComselect specialty hospital-[facility] on above:Result Comment: Cutoff: 5 ng/mlPerformed By: #### CP, CDP, TROPI, LIP, SALI #### [address] [place] [address] Team Otr Truck Driver: Dana Mendoza MDInterpretive InfoThis method is a screening test to detect only these drug classes as part of aNormalMercy Concord HospitalComment on above:Result Comment: medical workup. Confirmatory testing by another method should be ordered if clinically indicated.Performed By: #### CP, CDP, TROPI, LIP, SALI #### [address] [place], [place] 5365283 Team Otr Truck Driver: PATRICK Brooksethadone Ql (U)NegativeNormalNEGMercy Concord HospitalComment on above:Result Comment: Cutoff: 300 ng/mlPerformed By: #### CP, CDP, TROPI, LIP, SALI #### Lab [address] [place] [address] [place] [address] Team Otr Truck Driver: Dana Mendoza MDOpiate(s), UrNegativeNormalNEGMerUniversity of Connecticut Health Center[facility] on above:Result Comment: Cutoff: 300 ng/ml Note: The Opiate screen is not intended to detect Oxycodone.Performed By: #### CP, CDP, TROPI, LIP, SALI #### [address] [place], [place] 549[address]83 Team Otr Truck Driver: Dana Mendoza MDOxycodone, UrineNegativeNormalNEGPike Community Hospital on above:Result Comment: Cutoff: 100 ng/mlPerformed By: #### CP, CDP, TROPI, LIP, SALI #### [address] [place], [place] 911[address]83 Team Otr Truck Driver: Thanh Brooksidine, UrNegativeNormalNEGPike Community Hospital on above:Result Comment: Cutoff: 25 ng/mlPerformed By: #### CP, CDP, TROPI, LIP, SALI #### [address] [place] [address] Team Otr Truck Driver: Dana Mendoza MDEKG 12 Leadon [id number] Thoq57SKNTdh [facility] HealthP Dkfw20icmmcfrQbm [facility] HealthP-R Yqenhyer624 msBon [facility] HealthQ-T Vaejgcsw153 msBon [facility] HealthQRS Xzuqrrli73 ms [facility] HealthQTc Calculation (Minatt)426 msBon [facility] HealthR Ymoe59ihvbnvuTbz [facility] HealthT Rmvn30ozqzcshFor [facility] Health Ventricular Uzrs13KIFLlg [facility] HealthSinus bradycardia Otherwise normal ECG ECG not diagnostic for Acute Coronary Syndrome; consider clinical findings No previous ECGs available Confirmed by Lilia Burch ([id number]) on 06/17/2025 9:27:11 [facility] Lilia Finn MD - 06/17/2025 Sinus bradycardia Otherwise normal ECG ECG not diagnostic for Acute Coronary Syndrome; consider clinical findings No previous ECGs available Confirmed by Lilia Burch ([id number]) on 06/17/2025 9:27:11 PM [facility] CenterBon SecAc[facility] HealthAtrial Zlif55QPDGcq [facility] HealthP Afjn05pbpvltyInnSentara Rmh Medical Center HealthP-R Nnebhhqh091 msChandler Regional Medical Center SecVeterans Health Administrationy HealthQ-T Fykfnylc021 msChandler Regional Medical Center [facility] HealthQRS Ahaddhqi94 msChandler Regional Medical Center [facility] HealthQTc Calculation (Minatt)456 msBon [facility] Hospitalours [facility] HealthR [place] 11degreesBon SecVeterans Health Administrationy HealthT Nbuj20wpluflaNqvSentara Rmh Medical Center Health Ventricular Vona12RIKQtk [facility] HealthSinus rhythm with marked sinus arrhythmia Otherwise normal ECG When compared with ECG of 17-Jun-2025 05:36, (unconfirmed) No significant change was found Confirmed by Lilia Burch ([id number]) on 06/17/2025 9:25:52 [facility] Lilia Finn MD - 06/17/2025 Sinus rhythm with marked sinus arrhythmia Otherwise normal ECG When compared with ECG of 17-Jun-2025 05:36, (unconfirmed) No significant change was found Confirmed by Lilia Burch ([id number]) on 06/17/2025 9:25:52 PM Bon [facility] HospitalEKG Rhythm Stripon 06-17-2025 [facility] LABMetroHealth [facility] LABCarilion Roanoke Memorial HospitalLactate, Sepsison [id number] (BldV) [Moles/Vol]1.1 mmol/L0.5 - 1.9 mmol/LBon [facility] Clark Specialty HospitalLactic Acid, Sepsis1.1 mmol/LNormal0.5-1.9[facility] So[facility] Medical CenterComment on above:Performed By: #### TSH #### [facility] [address] [place], [place] [address]83 Team Otr Truck Driver: Mickey Brooksic Acidon [id number] and review of laboratory resultsAbnormSentara Virginia Beach General HospitalLactate (BldV) [Moles/Vol] 2.3 mmol/LHigh0.5 - 2.2 mmol/LBon [facility] Lactate [Moles/Vol]2.3 mmol/LHigh0.5-2.2MercYale New Haven HospitalComment on above: Performed By: #### CP, CDP, TROPI, LIP, SALI #### [address] [place], [place] [address]83 Team Otr Truck Driver: Dana Mendoza MDInterpretation and review of laboratory results AbnormalSpotsylvania Regional Medical Centerctate (BldV) [Moles/Vol]2.9 mmol/LHigh0.5 - 2.2 mmol/LBon [facility] Specialty HospitalLactate [Moles/Vol]2.9 mmol/LHigh0.5-2.2MGrand Lake Joint Township District Memorial HospitalComment on above:Performed By: #### TSH #### [address] [place], [place] [address]83 Team Otr Truck Driver: Dana Mendoza MDLipaseon [id number] [Catalytic activity/Vol] 25 U/L13 - 60 U/LBInova Women's HospitalLipase [Catalytic activity/Vol]25 U/L Jfxojm87-50RidqyHartford HospitalComment on above:Performed By: #### CP, CDP, TROPI, LIP, SALI #### [address] [place] [address] Team Otr Truck Driver: Dana Mendoza MDLipid Panelon [id number] and review of laboratory resultsAbnormWellmont Health System Lipid Profileon 90-10-8255Azizkimhoxf [Mass/Vol]186 mg/dLNormal0-199Bon [facility] on above: Cholesterol Guidelines: <200 Desirable 200-240 Borderline >240 Undesirable Result Comment: Cholesterol Guidelines: <200 Desirable 200-240 Borderline >240 UndesirablePerformed By: #### LIPR #### [address] [address] Team Otr Truck Driver: LORETO Moralesholesterol in HDL [Mass/Vol]25 mg/dLLow>40[facility] on above: HDL Guidelines: <40 Undesirable 40-59 Borderline >59 Desirable Result Comment: HDL Guidelines: <40 Undesirable 40-59 Borderline >59 DesirablePerformed By: #### LIPR #### [address] [address] Team Otr Truck Driver: LORETO Moralesholesterol in LDL [Mass/Vol]143 mg/dLHigh0-100 [facility] on above: LDL Guidelines: <100 Desirable 100-129 Near to/above Desirable 130-159 Borderline >159 Undesirable Direct (measured) LDL and calculated LDL are not interchangeable tests. Result Comment: LDL Guidelines: <100 Desirable 100-129 Near to/above Desirable 130-159 Borderline >159 Undesirable Direct (measured) LDL and calculated LDL are not interchangeable tests.Performed By: #### LIPR #### [facility] [address] [place] [address] Team Otr Truck Driver: LORETO Moralesholesterol in VLDL [Mass/Vol]18 mg/dLNormal1-30 [facility] on above:Performed By: #### LIPR #### [facility] [address] [place] [address] Team Otr Truck Driver: Gila Morales.total/Cholesterol in HDL [Mass ratio]7.4 {ratio}High<5.0[facility] on above:Performed By: #### LIPR #### [facility] [employer] [address] [place] [address] Team Otr Truck Driver: Avtar White MDTriglyceride [Mass/Vol]88 mg/dLNormal<150Bon [facility] SystemComment on above: Triglyceride Guidelines: <150 Desirable 150-199 Borderline 200-499 High >499 Very high Based on AHA Guidelines for fasting triglyceride, August 2012. Result Comment: Triglyceride Guidelines: <150 Desirable 150-199 Borderline 200-499 High >499 Very high Based on AHA Guidelines for fasting triglyceride, August 2012.Performed By: #### LIPR #### [facility] [address] [place], [place] [address] Team Otr Truck Driver: PATRICK Moralesicroscopic Urinalysison [id number] LM Ql (Urine sed)TRACEAbnormalNoneBon [facility] Medical CenterTheBankCloudCasts LM.LPF (Urine sed) [#/Area]2 TO 5 COARSELY GRANULAR/LPFBon Secours HitsbookCasts LM.LPF (Urine sed) [#/Area]10 TO 20 HYALINE/LPFBon [facility] SystemEpithelial cells LM.HPF (Urine sed) [#/Area]0 TO 2Bon [facility] SystemInterpretation and review of laboratory resultsAbnormalBon [facility] SystemMucus Ql (Urine sed)TRACE AbnormalNoneBon [facility] SystemRBC LM.HPF (Urine sed) [#/Area]0 TO 2Bon [facility] Medical CenterWBC LM.HPF (Urine sed) [#/Area]2 TO 5Bon [facility] HospitalMyoglobinon [id number] [Mass/Vol]35 ng/mL Bpidja63-10CtktcKettering Health – Soin Medical CenterComment on above:Performed By: #### CP, CDP, TROPI, LIP, SALI #### Lab [address] [place] [address] Team Otr Truck Driver: PATRICK Brooksyoglobin, Bloodon [id number] [Mass/Vol] 35 ng/mL28 - 72 ng/mLBon [facility] HealthNo Panel Informationon [id number] [facility] SystemPortable XR Chest AP single view on . No acute process. MHPN RIS CONSOLIDATEDEXAM: 1 VIEW XRAY OF THE CHEST 06/17/2025 05:52:21 AM COMPARISON: None available. CLINICAL HISTORY: Chest pain. FINDINGS: LUNGS AND PLEURA: No focal pulmonary opacity. No pulmonary edema. No pleural effusion. No pneumothorax. HEART AND MEDIASTINUM: No acute abnormality of the cardiac and mediastinal silhouettes. BONES AND SOFT TISSUES: No acute osseous abnormality. PN Tyrone Greer MD - 06/17/2025 EXAM: 1 VIEW XRAY OF THE CHEST 06/17/2025 05:52:21 AM COMPARISON: None available. CLINICAL HISTORY: Chest pain. FINDINGS: LUNGS AND PLEURA: No focal pulmonary opacity. No pulmonary edema. No pleural effusion. No pneumothorax. HEART AND MEDIASTINUM: No acute abnormality of the cardiac and mediastinal silhouettes. BONES AND SOFT TISSUES: No acute osseous abnormality. IMPRESSION: 1. No acute process. [facility] Empire AvenueRadiology Study observation (narrative)[facility] Empire AvenuePortable XR Chest AP single viewOrdered By: Tyrone Forde on [id number] [employer] Daily Work Phone: Procalcitoninon [id number] [Mass/Vol]0.04 ng/mL0.00 - 0.09 ng/mLBon [facility] HospitalPlanet DailyComment on above: Suspected Sepsis: <0.50 ng/mL Low likelihood of sepsis. 0.50-2.00 ng/mL Increased likelihood of sepsis. Antibiotics encouraged. >2.00 ng/mL High risk of sepsis/shock. Antibiotics strongly encouraged. Suspected Lower Resp Tract Infections: <0.24 ng/mL Low likelihood of bacterial infection. >0.24 ng/mL Increased likelihood of bacterial infection. Antibiotics encouraged. With successful antibiotic therapy, PCT levels should decrease rapidly. (Half- life of 24 to 36 hours.) Procalcitonin values from samples collected within the first 6 hours of systemic infection may still be low. Retesting may be indicated. Values from day 1 and day 4 can be entered into the Change in Procalcitonin Calculator (www.axxdzl-ssa-mfptgicuba.com) to determine the patient's Mortality Risk Prognosis In healthy neonates, plasma Procalcitonin (PCT) concentrations increase gradually after , reaching peak values at about 24 hours of age then decrease to normal values below 0.5 ng/mL by 48-72 hours of age. Robin Ackermanjovanni [facility] Medical CenterProcalcitonin0.04 ng/mLNormal0.00-0.09[facility] Medical CenterComment on above:Result Comment: Suspected Sepsis: <0.50 ng/mL Low likelihood of sepsis. 0.50-2.00 ng/mL Increased likelihood of sepsis. Antibiotics encouraged. >2.00 ng/mL High risk of sepsis/shock. Antibiotics strongly encouraged. Suspected Lower Resp Tract Infections: <0.24 ng/mL Low likelihood of bacterial infection. >0.24 ng/mL Increased likelihood of bacterial infection. Antibiotics encouraged. With successful antibiotic therapy, PCT levels should decrease rapidly. (Half-life of 24 to 36 hours.) Procalcitonin values from samples collected within the first 6 hours of systemic infection may still be low. Retesting may be indicated. Values from day 1 and day 4 can be entered into the Change in Procalcitonin Calculator (www.nvkggs-qik-oqpgnsbsew.com) to determine the patient's Mortality Risk Prognosis In healthy neonates, plasma Procalcitonin (PCT) concentrations increase gradually after , reaching peak values at about 24 hours of age then decrease to normal values below 0.5 ng/mL by 48-72 hours of age.Performed By: #### CP, CDP, TROPI, LIP, SALI #### [address] [place] [address] Team Otr Truck Driver: Eric Brooks Viral Panelon [id number] detectedNormalNOTDEKettering Health Main CampusComment on above:Performed By: #### CP, CDP, TROPI, LIP, SALI #### [address] [place] [address] Team Otr Truck Driver: Conrad Brooks.parapertussisNot detectedNormalNOTDEKettering Health Main CampusComselect specialty [facility] on above:Performed By: #### CP, CDP, TROPI, LIP, SALI #### [address] [place] [address] Team Otr Truck Driver: Wiley Brookstella pertussisNot detectedNormalNOTDETMercy Concord HospitalComment on above:Performed By: #### CP, CDP, TROPI, LIP, SALI #### [address] [place] [address] Team Otr Truck Driver: Shani Brooksd.pneumoniaeNot detectedNormalNOTDETMlouis stokes cleveland va medical centery Concord HospitalComment on above:Performed By: #### CP, CDP, TROPI, LIP, SALI #### [address] [place] [address] Team Otr Truck Driver: LORETO Brooksoronavirus 229ENot detectedNormalNOTDETMGrand Lake Joint Township District Memorial HospitalComment on above:Performed By: #### CP, CDP, TROPI, LIP, SALI #### [address] [place] [address] Team Otr Truck Driver: LORETO Brooksoronavirus [id number] detectedNormalNOTDETMMarietta Memorial Hospital HospitalComselect specialty [facility] on above:Performed By: #### CP, CDP, TROPI, LIP, SALI #### [address] [place] [address] Team Otr Truck Driver: LORETO Brooksoronavirus [id number] detectedNormalNOTDETMMarietta Memorial Hospital HospitalComselect specialty [facility] on above:Performed By: #### CP, CDP, TROPI, LIP, SALI #### Lab [address] [place] [address] [place] [address] Team Otr Truck Driver: LORETO Brooksoronavirus [id number] detectedNormalNOTDETMMarietta Memorial Hospital HospitalComselect [facility] on above:Performed By: #### CP, CDP, TROPI, LIP, SALI #### [address] [place] [address] Team Otr Truck Driver: Beronica Brooks MetapneumoNot detectedNormalNOTDETMKnox Community Hospitalfin HospitalComment on above:Performed By: #### CP, CDP, TROPI, LIP, SALI #### [address] [place] [address] Team Otr Truck Driver: Maricarmen Brooks ANot detectedNormalNOTDETMercy Concord HospitalComment on above:Performed By: #### CP, CDP, TROPI, LIP, SALI #### [address] [place] [address] Team Otr Truck Driver: Maricarmen Brooks BNot detectedNormalNOTDETMlouis stokes cleveland va medical centery Concord HospitalComselect specialty [facility] on above:Performed By: #### CP, CDP, TROPI, LIP, SALI #### [address] [place] [address] Team Otr Truck Driver: Liz Brooks.pneumoniaeNot detectedNormalNOTDETMlouis stokes cleveland va medical centery Concord HospitalComment on above:Result Comment: Performed by multiplexed nucleic acid assay.Performed By: #### CP, CDP, TROPI, LIP, SALI #### [address] [place] [address] Team Otr Truck Driver: Nona Brooksza 1Not detectedNormalNOTDETMercy Concord HospitalComselect specialty hospital[facility] on above:Performed By: #### CP, CDP, TROPI, LIP, SALI #### [address] [place] [address] Team Otr Truck Driver: Nona Brooksza 2Not detectedNormalNOTDETMercy Concord HospitalComselect specialty hospital-[facility] on above:Performed By: #### CP, CDP, TROPI, LIP, SALI #### [address] [place], [place] [address] Team Otr Truck Driver: Ru Brooks 3Not detectedNormalNOTDETMlouis stokes cleveland va medical centery Concord HospitalComment on above:Performed By: #### CP, CDP, TROPI, LIP, SALI #### [address] [place] [address] Team Otr Truck Driver: GEOFFREY Brooksarainfluenza 4Not detectedNormalNOTDEKettering Health Main CampusComment on above:Performed By: #### CP, CDP, TROPI, LIP, SALI #### [address] [place] [address] Team Otr Truck Driver: BRYANT Brooksesp Syncytial VirusNot detectedNormalNOTUniversity Hospitals Parma Medical CenterComment on above:Performed By: #### CP, CDP, TROPI, LIP, SALI #### [address] [place] [address] Team Otr Truck Driver: BRYANT Brookshino/EnterovirusNot detectedNormalCleveland Clinic Fairview HospitalComment on above:Performed By: #### CP, CDP, TROPI, LIP, SALI #### [address] [place] [address] Team Otr Truck Driver: RAVINDER Brooks-CoV-2 (COVID-19) RNA CHUN+probe Ql (Unsp spec) Not detectedNormalKettering Health Springfield HospitalComment on above:Performed By: #### CP, CDP, TROPI, LIP, SALI #### [address] [place] [address] Team Otr Truck Driver: Shahid Brooks:.NASOPHARYNGEAL SWABNormalMerHartford HospitalComment on above:Performed By: #### CP, CDP, TROPI, LIP, SALI #### [address] [place] [address] Team Otr Truck Driver: Noé Brooks Panel, Molecular, with COVID-19 (Restricted: peds pts or suitable admitted adults)on [id number] DNA CHUN+non-probe Ql (Nph)Not detectedNot DetectedBon Secours Mercy HealthB. parapertussis [id number] DNA CHUN+non-probe Ql (Nph)Not detectedNot DetectedBon Secours Mercy HealthB. pertussis DNA CHUN+probe Ql (Unsp spec)Not detectedNot DetectedBon Secours Mercy HealthC. pneumoniae DNA CHUN+non-probe Ql (Nph)Not detectedNot DetectedBon Secours Mercy HealthFLUAV RNA CHUN+non-probe Ql (Nph)Not detectedNot DetectedBon Secours Mercy HealthFLUBV RNA CHUN+non-probe Ql (Nph)Not detectedNot DetectedBon Secours Mercy HealthHCoV 229E RNA CHUN+non-probe Ql (Nph) Not detectedNot DetectedBon Secours Mercy HealthHCoV HKU1 RNA CHUN+non-probe Ql (Nph)Not detectedNot DetectedBon Secours Mercy HealthHCoV NL63 RNA CHUN+non-probe Ql (Nph)Not detectedNot DetectedBon Secours Mercy HealthHCoV OC43 RNA CHUN+non- probe Ql (Nph)Not detectedNot DetectedBon Secours Mercy HealthhMPV RNA CHUN+non- probe Ql (Nph)Not detectedNot DetectedBon Secours Mercy HealthM. pneumoniae DNA CHUN+non-probe Ql (Nph)Not detectedNot DetectedBon [facility]ours [facility] Healthcarey HealthComment on above:Performed by multiplexed nucleic acid assay.Parainfluenza virus 1 RNA CHUN+non-probe Ql (Nph)Not detectedNot DetectedBon [facility] Parainfluenza virus 2 RNA CHUN+non-probe Ql (Nph)Not detectedNot DetectedBon Secours [facility] Healthcarey [facility] HospitalParainfluenza virus 3 RNA CHUN+non-probe Ql (Nph)Not detected Not DetectedBon Secours Mercy Knox Community HospitalParainfluenza virus 4 RNA CHUN+non-probe Ql (Nph)Not detectedNot DetectedBon Secours Uk Healthcarey [facility] Community HospitalRhinovirus+Enterovirus RNA CHUN+non-probe Ql (Nph)Not detectedNot DetectedBon Secours Mercy [facility] Community HospitalRSV RNA CHUN+non-probe Ql (Nph)Not detectedNot DetectedBon Secours Uk Healthcarey JktywbGNJY-TpL-9 (COVID-19) RNA CHUN+non-probe Ql (Nph)Not detectedNot DetectedBon Secours Mercy HealthSpecimen Description.NASOPHARYNGEAL SWABBon [facility]ours [facility] HealthBon Secours [facility] HealthSalicylateon [id number] [Mass/Vol]1 mg/dL0.0 - 10.0 mg/dLBon [facility] Health SystemSalicylate1.0 mg/dLNormal0.0-10.0[facility] CenterComment on above:Performed By: #### CP, CDP, TROPI, LIP, SALI #### Lab [address] [place], [place] [id number] Team Otr Truck Driver: Kaylie Brooks Rejectionon [id number] for rejectionUnable to perform testing: Specimen hemolyzed.NormalKettering Health – Soin Medical CenterComment on above:Performed By: #### TSH #### Lab [address] [place] [address] Dr[address] [place], [place] [id number] Team Otr Truck Driver: Shahid Brooks of sample.BLOODNoK[facility]tering Health [facility] Comment on above:Performed By: #### TSH #### Lab [address] [place], [place] [id number] Team Otr Truck Driver: Dana Mendoza MDRehoboth Mckinley Christian [facility] orderedTROPINoKettering Health [facility] Comment on above:Performed By: #### TSH #### [address] [place], [place] [id number] Team Otr Truck Driver: LOWELL Brookstrina [id number] Qn1.64 m[IU]/LBon Mount Carm[facility] Health SystemComment on above:Specimen hemolysis has exceeded the interference as defined by Isak. Value may be falsely increased. Suggest recollection if clinically indicated. Bon [facility] Health SystemThyroid Stim. Horm.on [id number] Stim. Horm.1.64 uIU/mLNormal0.27-4.20[facility] CenterComment on above:Result Comment: Specimen hemolysis has exceeded the interference as defined by Isak. Value may be falsely increased. Suggest recollection if clinically indicated.Performed By: #### TSH #### Lab [address] [place], [place] [address] Team Otr Truck Driver: Jovany Brooks [id number] and review of laboratory resultsAbnormalCarilion Stonewall Jackson Hospitaloponin I.cardiac High sensitivity method [Mass/Vol]26 ng/LHigh0 - 22 ng/LBon [facility] Comment on above:High Sensitivity Troponin values cannot be compared with other Troponin methodologies.[facility]wall Jackson Hospitaloponin, High Sens26 ng/LHigh 0-22[facility] CenterComment on above:Result Comment: High Sensitivity Troponin values cannot be compared with other Troponin methodologies.Performed By: #### TSH #### Lab [address] [place] [address] [place] [address] Team Otr Truck Driver: Dana Mendoza MDInterpretation and review of laboratory results [facility] Patrickoponin I.cardiac High sensitivity method [Mass/Vol]45 ng/LHigh0 - 22 ng/LBon [facility] Health SystemComment on above:High Sensitivity Troponin values cannot be compared with other Troponin methodologies.[facility] Jackson Hospitaloponin, High Sens45 ng/LHigh0-22[facility]state Medical CenterComment on above:Result Comment: High Sensitivity Troponin values cannot be compared with other Troponin methodologies.Performed By: #### CP, CDP, TROPI, LIP, SALI #### [address] [place] [address] Team Otr Truck Driver: Dana Mendoza MDInterpretation and review of laboratory results [facility] Patrickoponin I.cardiac High sensitivity method [Mass/Vol]51 ng/LHigh0 - 22 ng/LBon [facility] SystemComment on above:High Sensitivity Troponin values cannot be compared with other Troponin methodologies.[facility] Jackson Hospitaloponin, High Sens51 ng/LHigh0-22[facility] CenterComselect specialty hospital[facility] on above:Result Comment: High Sensitivity Troponin values cannot be compared with other Troponin methodologies.Performed By: #### CP, CDP, TROPI, LIP, SALI #### Lab [address] [place] [address] [place] [address] Team Otr Truck Driver: Dana Mendoza MDInterpretation and review of laboratory results AbnormalBon [facility] Hospitalnitrina I.cardiac High sensitivity method [Mass/Vol]38 ng/LHigh0 - 22 ng/LBon [facility] SystemComselect specialty hospital-[facility]inte on above:High Sensitivity Troponin values cannot be compared with other Troponin methodologies.Bon [facility] Barnes[facility] Hospitalnin, High Sens38 ng/LHigh0-22[facility] Medical CenterComment on above:Result Comment: High Sensitivity Troponin values cannot be compared with other Troponin methodologies.Performed By: #### TROPI #### [address] [place], [place] [id number] Team Otr Truck Driver: Johnathon Brooks I.cardiac High sensitivity method [Mass/Vol]17 ng/L0 - 22 ng/LBon [facility] SystemComselect specialty hospital-[facility] on above:High Sensitivity Troponin values cannot be compared with other Troponin methodologies.Troponin, High Sens17 ng/LNormal0-22[facility] So[facility] Medical CenterComment on above:Result Comment: High Sensitivity Troponin values cannot be compared with other Troponin methodologies.Performed By: #### CP, CDP, TROPI, LIP, SALI #### [address] [place] [address] Team Otr Truck Driver: ZORAN Brooks w/Reflex Cultureon [id number], SemiQt,UrSMALLAbnormalNEGKettering Health – Soin Medical CenterComment on above:Performed By: #### CP, CDP, TROPI, LIP, SALI #### Lab [address] [place] [address] [place] [address] Team Otr Truck Driver: Deshaun Brooks, UrineNegativeNormFulton County Health Center Comment on above:Performed By: #### CP, CDP, TROPI, LIP, SALI #### [address] [place] [address] Team Otr Truck Driver: Selena Brooks (U)ClearNormalCLEARKettering Health – Soin Medical Center Comment on above:Performed By: #### CP, CDP, TROPI, LIP, SALI #### [address] [place], [place] [id number] Team Otr Truck Driver: LORETO Brooksolor (U)YellowNormalYJ.W. Ruby Memorial Hospital Comment on above:Performed By: #### CP, CDP, TROPI, LIP, SALI #### [address] [place], [place] [address] Team Otr Truck Driver: Dana Mendoza MDGlucose Ql (U)NegativeNormalNEGKettering Health – Soin Medical CenterComment on above:Performed By: #### CP, CDP, TROPI, LIP, SALI #### [address] [place], [facility]83 Team Otr Truck Driver: Dana Mendoza MDKetones Ql (U)4+ mg/dLAbnormalNEGKettering Health – Soin Medical CenterComment on above:Performed By: #### CP, CDP, TROPI, LIP, SALI #### [address] [place], [place] [address] Team Otr Truck Driver: Dana Mendoza MDLeukocyte esterase Test strip Ql (U)NegativeNormal NEGKettering Health – Soin Medical CenterComment on above:Performed By: #### CP, CDP, TROPI, LIP, SALI #### [address] [place], [facility]83 Team Otr Truck Driver: Dana Mendoza MDNitrite,UrNegativeNormalNEGKettering Health – Soin Medical Center Comment on above:Performed By: #### CP, CDP, TROPI, LIP, SALI #### [address] [place], [facility]83 Team Otr Truck Driver: Dana Mendoza [facility],Ur6.6Lgwclu2.0-9.0[facility] So[facility] Medical CenterComment on above:Performed By: #### CP, CDP, TROPI, LIP, SALI #### [address] [place] [id number] Team Otr Truck Driver: GEOFFREY Brooksrotein Ql (U)2+ mg/dLAbnormalNEGKettering Health – Soin Medical CenterComment on above:Performed By: #### CP, CDP, TROPI, LIP, SALI #### [address] [place], [place] [address] Team Otr Truck Driver: JAN Brookspec. [place],Ur1.031Wiqu8.010-1.020[facility] Medical CenterComment on above:Performed By: #### CP, CDP, TROPI, LIP, SALI #### [address] [place], [place] [address] Team Otr Truck Driver: Dana Mendoza MDUrobilinogen,UrELEVATEDNormal0.0-1.0[facility] Medical CenterComment on above:Performed By: #### CP, CDP, TROPI, LIP, SALI #### [address] [place], [facility]83 Team Otr Truck Driver: Dana Mendoza MDUrinalysis with Reflex to Cultureon 06-17-2025 Bilirubin Ql (U)SMALLAbnormalNEGATIVEBon [facility] Health SystemClarity (U)Clear ClearBon [facility] Health SystemColor (U)YellowYellowBon [facility] Glucose Test strip (U) [Mass/Vol]NegativeNEGATIVE mg/dLBon [facility] Hemoglobin Auto test strip Ql (U)NegativeNEGATIVECarilion Roanoke Memorial Hospital Interpretation and review of laboratory resultsAbnormalBon [facility] Ketones (U) [Mass/Vol]4+AbnormalNEGATIVE mg/dLBon [facility] SystemLeukocyte esterase Test strip Ql (U)NegativeNEGATIVEBon SecSelect Medical Specialty Hospital - YoungstownNitrite Ql (U) NegativeNEGATIVEBon [facility] Health SystempH (U)6 [pH]5.0 - 9.0Bon [facility] SystemProtein (U) [Mass/Vol]2+AbnormalNEGATIVE mg/dLBon [facility] Specific gravity (U) [Rel density]1.025Xjbv4.010 - 1.020Bon [facility] Urobilinogen Qn (U)ELEVATED0.0 - 1.0 EU/dLBon [facility] SystemBon [facility] Health SystemUrinalysis,Microon [id number]DMelth Tiffin HospitalComment on above:Performed By: #### CP, CDP, TROPI, LIP, SALI #### Lab [address] [place] [address] Team Otr Truck Driver: LORETO Brooksasts2 TO 5NoKettering Health DaytonComment on above:Result Comment: COARSELY GRANULAR 10 TO 20 HYALINEPerformed By: #### CP, CDP, TROPI, LIP, SALI #### Lab [address] [place] [address] Team Otr Truck Driver: Dana Mendoza MDEpithelial cells LM Ql (Urine sed)0 TO 9Lpmoof6-6 [facility] Medical CenterComment on above:Performed By: #### CP, CDP, TROPI, LIP, SALI #### Lab [address] [place] [address] Team Otr Truck Driver: Donnell Brooks StrandsTRACEAbnoSamaritan HospitalComment on above:Performed By: #### CP, CDP, TROPI, LIP, SALI #### [facility] [address] [place] [address] Team Otr Truck Driver: Umair Brooks RBC's0 TO 9Bqptcm9-9KqsyjGrand Lake Joint Township District Memorial Hospital Comment on above:Performed By: #### CP, CDP, TROPI, LIP, SALI #### Lab [address] [place] [address] Team Otr Truck Driver: Umair Brooks WBC's2 TO 5Qdiyxe8-9JpjreKettering Health – Soin Medical Center Comment on above:Performed By: #### CP, CDP, TROPI, LIP, SALI #### Lab [address] [place] [address] Team Otr Truck Driver: Dana Mendoza MDUrine Drug Screenon [id number] Ql (U) NegativeNEGATIVEBon Secours Mercy HealthComment on above:Cutoff: 1000 ng/mL Barbiturates Screen Ql (U)NegativeNEGATIVEBon Secours Mercy HealthComment on above:Cutoff: 200 ng/mlBenzodiazepines Ql (U)NegativeNEGATIVEBon Secours Mercy HealthComment on above:Cutoff: 200 ng/mlCannabinoids Screen Ql (U)Negative NEGATIVEBon Secours Mercy HealthComment on above:Cutoff: 50 ng/mlCocaine Ql (U) NegativeNEGATIVEBon Secours Mercy HealthComment on above:Cutoff: 300 ng/ml fentaNYL Ql (U)NegativeNEGATIVEBon Secours Mercy HealthComment on above:Cutoff: 5 ng/mlMethadone Ql (U)NegativeNEGATIVEBon Secours Mercy HealthComment on above: Cutoff: 300 ng/mlOpiates Screen Ql (U)NegativeNEGATIVEBon Secours Mercy Health Comment on above:Cutoff: 300 ng/ml Note: The Opiate screen is not intended to detect Oxycodone. oxyCODONE Ql (U)NegativeNEGATIVEBon Secours Mercy HealthComment on above:Cutoff: 100 ng/mlPhencyclidine Ql (U)NegativeNEGATIVEBon Secours Mercy HealthComment on above:Cutoff: 25 ng/mlTest InformationThis method is a screening test to detect only these drug classes as part of a medical workup. Confirmatory testing by another method should be ordered if clinically indicated.[facility] Mercy HealthBon Secours Mercy HealthXR CHEST PORTABLEon [id number] CHEST PORTABLE EXAM: 1 VIEW XRAY OF THE CHEST 06/17/2025 05:52:21 AM COMPARISON: None available. CLINICAL HISTORY: Chest pain. FINDINGS: LUNGS AND PLEURA: No focal pulmonary opacity. No pulmonary edema. No pleural effusion. No pneumothorax. HEART AND MEDIASTINUM: No acute abnormality of the cardiac and mediastinal silhouettes. BONES AND SOFT TISSUES: No acute osseous abnormality. IMPRESSION: 1. No acute process. Interpreted by: Tyrone Forde MD Signed by: Tyrone Forde MD 06/17/[address] [facility] Hospital Visit Summaryon 05-04-2025 Ambulatory Visit SummaryAmbulatory Visit Summary CHEL CHAPARRO :1985 Visit Date:05/04/2025 Ambulatory Visit Instructions Your Diagnosis ADHD Essential hypertension BMI 32.0-32.9,adult Non-smoker Your Care Team Attending Physician - Aimee Irwin Primary Care Physician - Aimee Irwin This Is Your Medications List amphetamine-dextroamphetamine (Adderall XR 20 mg Cap-ER) hyoscyamine (hyoscyamine 0.375 mg ER Tab) levothyroxine (levothyroxine 100 mcg (0.1 mg) Tab) pantoprazole (Pantoprazole [address] Tab) quetiapine (SEROquel 25 mg Tab) venlafaxine (Effexor XR 75 mg Cap-ER) Procedures Performed Colonoscopy (2019). Discharge Vitals Heart Rate (Peripheral) 95 Blood Pressure 160/90 Height 175.0 cm Height 69 in Weight 100.3 kg Weight 221.123 lb BMI 32.75 Medications What How Much When Why Instructions Unchanged amphetamine-dextroamphetamine (Adderall XR 20 mg Cap-ER) 1 Capsules By Mouth Once a day (in the morning) Unchanged hyoscyamine (hyoscyamine 0.375 mg ER Tab) 1 Tablets By Mouth Every day Unchanged levothyroxine (levothyroxine 100 mcg (0.1 mg) Tab) 1 Tablets By Mouth Every day Unchanged pantoprazole (Pantoprazole [address] Tab) 1 Tablets By Mouth Every day Unchanged quetiapine (SEROquel 25 mg Tab) 1 Tablets By Mouth Every day Anxiety Moderate recurrent major depression BMI 31.0-31.9,adult Smoker Unchanged venlafaxine (Effexor XR 75 mg Cap-ER) 1 Capsules By Mouth Every day Anxiety BMI 31.0-31.9,adult Smoker Allergies Percocet (Unknown) minocycline (Unknown) traMADol (Unknown) Imitrex Problems Ongoing - Any problem that you are currently receiving treatment for. ADHD Anxiety BMI 28.0-28.9,adult BMI 31.0-31.9,adult Depressed mood Essential hypertension Fatigue Hematochezia Hypothyroidism IBS - Irritable bowel syndrome Insomnia Internal derangement of right knee Lyme disease Migraine without aura Moderate recurrent major depression Overweight Post-trauma response Shoulder pain Sleep disorder Smoker Patient Survey You may receive a survey via text or e-mail asking about your office visit. Please share your experience with us by completing your survey. We appreciate your feedback and thank you for choosing us for your care. [facility] Medicine Office/Clinic Noteon [id number] Medicine Office/Clinic NoteFahunt memorial hospital Medicine Office/Clinic Note Chief Complaint 1 month f/u HPI Staff Patient is presenting for 1 month med follow up Started Adderall 03/05/25 - BARBER- 04/02/25 - increased dose to 20mg Sleeping well: yes Eating habits: Eating well, maintaining weight Side effects: _ Focused at home: _ Concerns/complaints: wants to increase dose today if can, will need Rx sent Medication consent: 03/05/25 Drug screen: 04/02/25 Got PVC glue in eye 2 days ago, flushed immediately after happened, still hurting him History of Present Illness pt presents today for ADHD follow up Review of Systems PHQ Score Initial Depression Screen Score: 0 SCORE Physical Exam Vitals & Measurements HR: 95(Peripheral) BP: 160/90 SpO2: 95% HT: 69 in HT: 175.0 cm WT: 221.123 lb WT: 100.3 kg BMI: 32.75 General: alert, no acute distress ENMT: oral mucosa moist, no pharyngeal erythema or exudate Cardiovascular: regular rate and rhythm, normal peripheral perfusion Respiratory: Lungs CTA, respirations non labored Extremities: no deformity, no trauma Neurological: oriented x 4, LOC appropriate for age, CN II-XII intact, motor strength equal & normal bilaterally, speech normal Assessment/Plan 1. ADHD (F90.9: Attention-deficit hyperactivity disorder, unspecified type) pt would like to try the afternoon dose that we discussed at last appointment. pt will keep an eye on his BP. if it is greater than 140/90 he will hold dose. RTC 4 weeks Ordered: amphetamine-dextroamphetamine, See Instructions, 30 tab(s), Refill(s) 0, 1 tab(s) Oral at lunch time, [facility], 175, cm, 05/04/25 15:04:00 EDT, Height/Length Dosing, 100.3, kg, 05/04/25 15:04:00 EDT, Weight Dosing losartan, 25 mg = 1 tab(s), Oral, Daily, # 90 tab(s), Refills(s) 0, Pharmacy: [facility], 175, cm, 05/04/25 15:04:00 EDT, Height/Length Dosing, 100.3, kg, 05/04/25 15:04:00 EDT, Weight Dosing 2. Essential hypertension (I10: Essential (primary) hypertension) BP is still elevated. pt states I think it is because my eye is hurting. he accidentally go PVC glue in his eye 2 days ago. he will be calling his eye doctor this afternoon. will start losartan. pt will keep BP log and return in 4 weeks. he states it runs around 145/95 at home Ordered: amphetamine-dextroamphetamine, See Instructions, 30 tab(s), Refill(s) 0, 1 tab(s) Oral at lunch time, [facility], 175, cm, 05/04/25 15:04:00 EDT, Height/Length Dosing, 100.3, kg, 05/04/25 15:04:00 EDT, Weight Dosing losartan, 25 mg = 1 tab(s), Oral, Daily, # 90 tab(s), Refills(s) 0, Pharmacy: [facility], 175, cm, 05/04/25 15:04:00 EDT, Height/Length Dosing, 100.3, kg, 05/04/25 15:04:00 EDT, Weight Dosing 3. BMI 32.0-32.9,adult (Z68.32: Body mass index [BMI] 32.0-32.9, adult) BMI education given Ordered: amphetamine-dextroamphetamine, See Instructions, 30 tab(s), Refill(s) 0, 1 tab(s) Oral at lunch time, [facility], 175, cm, 05/04/25 15:04:00 EDT, Height/Length Dosing, 100.3, kg, 05/04/25 15:04:00 EDT, Weight Dosing losartan, 25 mg = 1 tab(s), Oral, Daily, # 90 tab(s), Refills(s) 0, Pharmacy: [facility], 175, cm, 05/04/25 15:04:00 EDT, Height/Length Dosing, 100.3, kg, 05/04/25 15:04:00 EDT, Weight Dosing 4. Non-smoker (Z78.9: Other specified health status) continue not smoking Ordered: amphetamine-dextroamphetamine, See Instructions, 30 tab(s), Refill(s) 0, 1 tab(s) Oral at lunch time, [facility], 175, cm, 05/04/25 15:04:00 EDT, Height/Length Dosing, 100.3, kg, 05/04/25 15:04:00 EDT, Weight Dosing losartan, 25 mg = 1 tab(s), Oral, Daily, # 90 tab(s), Refills(s) 0, Pharmacy: [facility], 175, cm, 05/04/25 15:04:00 EDT, Height/Length Dosing, 100.3, kg, 05/04/25 15:04:00 EDT, Weight Dosing Orders: amphetamine-dextroamphetamine, 20 mg = 1 cap(s), Oral, qAM, # 30 cap(s), Refills(s) 0, Pharmacy: [facility], 175, cm, 05/04/25 15:04:00 EDT, Height/Length Dosing, 100.3, kg, 05/04/25 15:04:00 EDT, Weight Dosing amphetamine-dextroamphetamine, 20 mg = 1 cap(s), Oral, qAM, # 30 cap(s), Refills(s) 0, Pharmacy: [facility], 175, cm, 04/02/25 15:19:00 EDT, Height/Length Dosing, 102.6, kg, 04/02/25 15:19:00 EDT, Weight Dosing Follow-up No qualifying data available Problem List/Past Medical History Ongoing ADHD Anxiety BMI 28.0-28.9,adult BMI 31.0-31.9,adult Depressed mood Essential hypertension Fatigue Hematochezia Hypothyroidism IBS - Irritable bowel syndrome Insomnia Internal derangement of right knee Lyme disease Migraine without aura Moderate recurrent major depression Overweight Post-trauma response Shoulder pain Sleep disorder Smoker Historical No qualifying data Procedure/Surgical History Colonoscopy (2019). Medications Adderall 7.5 mg oral tablet, See Instructions Adderall XR 20 mg Cap-ER, 20 mg= 1 cap(s), Oral, qAM Effexor XR 75 mg Cap-ER, 75 mg= 1 cap(s), Oral, Daily, 1 refills hyoscyamine 0.375 mg E (more content not included)...[facility] Medical CenterComment on above:Result Comment: Electronically Signed By: Aimee Irwin\.br\Date and Time Signed: 05/04/25 15:24 EDTAmbulatory Visit Summaryon [id number] Visit SummaryAmbulatory Visit Summary CHEL CHAPARRO :1985 Visit Date:04/02/2025 Ambulatory Visit Instructions Your Diagnosis ADHD Anxiety Essential hypertension BMI 33.0-33.9,adult Smoker Your Care Team Attending Physician - Aimee Irwin Primary Care Physician - Aimee Irwin This Is Your Medications List amphetamine-dextroamphetamine (Adderall XR 10 mg Cap-ER) hyoscyamine (hyoscyamine 0.375 mg ER Tab) levothyroxine (levothyroxine 100 mcg (0.1 mg) Tab) pantoprazole (Pantoprazole [address] Tab) quetiapine (SEROquel 25 mg Tab) venlafaxine (Effexor XR 75 mg Cap-ER) Procedures Performed Colonoscopy (2019). Discharge Vitals Heart Rate (Peripheral) 98 Respiratory Rate 18 Blood Pressure 160/110 Height 175.0 cm Height 69 in Weight 102.60 kg Weight 226.194 lb BMI 33.5 What to do next Scheduled Follow-Up Appointments Sunday 3:00 PM EDT With: Aimee Irwin Where: [facility] Medicine [address] [address]- Medications What How Much When Why Instructions Unchanged amphetamine-dextroamphetamine (Adderall XR 10 mg Cap-ER) 1 Capsules By Mouth Once a day (in the morning) Anxiety ADHD BMI 33.0-33.9,adult Smoker Unchanged hyoscyamine (hyoscyamine 0.375 mg ER Tab) 1 Tablets By Mouth Every day Unchanged levothyroxine (levothyroxine 100 mcg (0.1 mg) Tab) 1 Tablets By Mouth Every day Unchanged pantoprazole (Pantoprazole [address] Tab) 1 Tablets By Mouth Every day Unchanged quetiapine (SEROquel 25 mg Tab) 1 Tablets By Mouth Every day Anxiety Moderate recurrent major depression BMI 31.0-31.9,adult Smoker Unchanged venlafaxine (Effexor XR 75 mg Cap-ER) 1 Capsules By Mouth Every day Anxiety BMI 31.0-31.9,adult Smoker Allergies Percocet (Unknown) minocycline (Unknown) traMADol (Unknown) Imitrex Problems Ongoing - Any problem that you are currently receiving treatment for. ADHD Anxiety BMI 28.0-28.9,adult BMI 31.0-31.9,adult Depressed mood Essential hypertension Fatigue Hematochezia Hypothyroidism IBS - Irritable bowel syndrome Insomnia Internal derangement of right knee Lyme disease Migraine without aura Moderate recurrent major depression Overweight Post-trauma response Shoulder pain Sleep disorder Smoker Patient Survey You may receive a survey via text or e-mail asking about your office visit. Please share your experience with us by completing your survey. We appreciate your feedback and thank you for choosing us for your care. [facility] Medicine Office/Clinic Noteon [id number] Medicine Office/Clinic NoteFahunt memorial hospital Medicine Office/Clinic Note HPI Staff Chel is a 40 year old male presenting for 1 month follow up BARBER 03/05/25 started Adderall 10mg ER Sleeping well:yes Eating habits:Eating well, No decrease in appetite Blood pressure:_ Side effects: None Focused at home: no Medication Consent: 03/05/25 Drug screen: Due today Concerns/complaints: Pt feels like first part of the day he is good about lunch time he begins to have a hard time . History of Present Illness pt presents today for follow up on ADHD and anxiety Review of Systems PHQ Score Initial Depression Screen Score: 0 SCORE Physical Exam Vitals & Measurements HR: 98(Peripheral) RR: 18 BP: 160/110 SpO2: 98% HT: 69 in HT: 175.0 cm WT: 226.194 lb WT: 102.60 kg BMI: 33.5 General: alert, no acute distress ENMT: oral mucosa moist, no pharyngeal erythema or exudate Cardiovascular: regular rate and rhythm, normal peripheral perfusion Respiratory: Lungs CTA, respirations non labored Extremities: no deformity, no trauma Neurological: oriented x 4, LOC appropriate for age, CN II-XII intact, motor strength equal & normal bilaterally, speech normal Assessment/Plan 1. ADHD (F90.9: Attention-deficit hyperactivity disorder, unspecified type) will increase dose to 20mg ER. RTC 4 weeks Ordered: amphetamine-dextroamphetamine, 10 mg = 1 cap(s), Oral, qAM, # 30 cap(s), Refills(s) 0, Pharmacy: [facility], 175, cm, 03/05/25 10:44:00 EDT, Height/Length Dosing, 102.6, kg, 03/05/25 10:44:00 EDT, Weight Dosing Drug Screen POC [id number] 2. Anxiety (F41.9: Anxiety disorder, unspecified) anxiety is much improved Ordered: amphetamine-dextroamphetamine, 10 mg = 1 cap(s), Oral, qAM, # 30 cap(s), Refills(s) 0, Pharmacy: [facility], 175, cm, 03/05/25 10:44:00 EDT, Height/Length Dosing, 102.6, kg, 03/05/25 10:44:00 EDT, Weight Dosing Drug Screen POC 08871 3. Essential hypertension (I10: Essential (primary) hypertension) BP is elevated today. he is just getting over being sick and drank a red ull on his way here. he will monitor BP at home Ordered: Drug Screen POC 83869 4. BMI 33.0-33.9,adult (Z68.33: Body mass index [BMI] 33.0-33.9, adult) BMI education Ordered: amphetamine-dextroamphetamine, 10 mg = 1 cap(s), Oral, qAM, # 30 cap(s), Refills(s) 0, Pharmacy: [facility], 175, cm, 03/05/25 10:44:00 EDT, Height/Length Dosing, 102.6, kg, 03/05/25 10:44:00 EDT, Weight Dosing 5. Smoker (F17.200: Nicotine dependence, unspecified, uncomplicated) consider not smoking Ordered: amphetamine-dextroamphetamine, 10 mg = 1 cap(s), Oral, qAM, # 30 cap(s), Refills(s) 0, Pharmacy: [facility], 175, cm, 03/05/25 10:44:00 EDT, Height/Length Dosing, 102.6, kg, 03/05/25 10:44:00 EDT, Weight Dosing Orders: amphetamine-dextroamphetamine, 20 mg = 1 cap(s), Oral, qAM, # 30 cap(s), Refills(s) 0, Pharmacy: [facility], 175, cm, 04/02/25 15:19:00 EDT, Height/Length Dosing, 102.6, kg, 04/02/25 15:19:00 EDT, Weight Dosing Follow-up No qualifying data available Problem List/Past Medical History Ongoing ADHD Anxiety BMI 28.0-28.9,adult BMI 31.0-31.9,adult Depressed mood Essential hypertension Fatigue Hematochezia Hypothyroidism IBS - Irritable bowel syndrome Insomnia Internal derangement of right knee Lyme disease Migraine without aura Moderate recurrent major depression Overweight Post-trauma response Shoulder pain Sleep disorder Smoker Historical No qualifying data Procedure/Surgical History Colonoscopy (2019). Medications Adderall XR 20 mg Cap-ER, 20 mg= 1 cap(s), Oral, qAM Effexor XR 75 mg Cap-ER, 75 mg= 1 cap(s), Oral, Daily, 1 refills hyoscyamine 0.375 mg ER Tab, 0.375 mg= 1 tab(s), Oral, Daily, 3 refills levothyroxine 100 mcg (0.1 mg) Tab, 100 mcg= 1 tab(s), Oral, Daily, 3 refills Pantoprazole [address] Tab, 40 mg= 1 tab(s), Oral, Daily, 3 refills SEROquel 25 mg Tab, 25 mg= 1 tab(s), Oral, Daily Allergies Percocet (Unknown) minocycline (Unknown) traMADol (Unknown) Imitrex Social History Alcohol Current. Beer. 1-2 times per week., 03/05/2025 Substance Abuse - Denies Substance Abuse, 12/18/2013 Past. Marijuana. 1-2 times per month. Previous treatment: None., 03/05/2025 Tobacco 10 or more cigarettes (1/2 pack or more)/day in last 30 days Tobacco Use:., 03/05/2025 Family History Acute myocardial infarction: Father. Diabetes mellitus type 1: Father. Stroke: Father. Immunizations Vaccine Date Status Comments influenza virus vaccine, inactivated - Not Given Postpone due to refusal SARS-CoV-2 mRNA (tozinameran 5y-11y) vac - Not Given Postpone due to refusal diphtheria/pertussis, acel/tetanus adult 08/20/2019 Recorded measles/mumps/rubella virus vaccine 02/10/1998 Recorded Lab Results Ambulatory Point of Care Results Cocaine Result: Negative (04/02/25 15:24:00) Amphetamines Result: Positive (04/02/25 15:24:00) Barbiturates Result: Negative (0 (more content not included)...[facility] CenterComment on above:Result Comment: Electronically Signed By: Aimee Irwin\.br\Date and Time Signed: 04/02/25 15:54 EDTAmbulatory Visit Summaryon [id number] Visit SummaryAmbulatory Visit Summary CHEL CHAPARRO :1985 Visit Date:03/05/2025 Ambulatory Visit Instructions Your Diagnosis Anxiety BMI 33.0-33.9,adult Smoker Your Care Team Attending Physician - Aimee Irwin Primary Care Physician - Aimee Irwin This Is Your Medications List hyoscyamine (hyoscyamine 0.375 mg ER Tab) levothyroxine (levothyroxine 100 mcg (0.1 mg) Tab) pantoprazole (Pantoprazole [address] Tab) quetiapine (SEROquel 25 mg Tab) venlafaxine (Effexor XR 75 mg Cap-ER) Procedures Performed Colonoscopy (2019). Discharge Vitals Heart Rate (Peripheral) 78 Respiratory Rate 16 Blood Pressure 140/88 Height 175.0 cm Height 69 in Weight 102.6 kg Weight 226.194 lb BMI 33.5 What to do next Scheduled Follow-Up Appointments 2024 3:00 PM EDT With: Aimee Irwin Where: [address] [address]- Medications What How Much When Why Instructions Unchanged hyoscyamine (hyoscyamine 0.375 mg ER Tab) 1 Tablets By Mouth Every day Unchanged levothyroxine (levothyroxine 100 mcg (0.1 mg) Tab) 1 Tablets By Mouth Every day Unchanged pantoprazole (Pantoprazole [address] Tab) 1 Tablets By Mouth Every day Unchanged quetiapine (SEROquel 25 mg Tab) 1 Tablets By Mouth Every day Anxiety Moderate recurrent major depression BMI 31.0-31.9,adult Smoker Unchanged venlafaxine (Effexor XR 75 mg Cap-ER) 1 Capsules By Mouth Every day Anxiety BMI 31.0-31.9,adult Smoker Allergies Percocet (Unknown) minocycline (Unknown) traMADol (Unknown) Imitrex Problems Ongoing - Any problem that you are currently receiving treatment for. Anxiety BMI 28.0-28.9,adult BMI 31.0-31.9,adult Depressed mood Essential hypertension Fatigue Hematochezia Hypothyroidism IBS - Irritable bowel syndrome Insomnia Internal derangement of right knee Lyme disease Migraine without aura Moderate recurrent major depression Overweight Post-trauma response Shoulder pain Sleep disorder Smoker Patient Survey You may receive a survey via text or e-mail asking about your office visit. Please share your experience with us by completing your survey. We appreciate your feedback and thank you for choosing us for your care. [facility] Medicine Office/Clinic Noteon [id number] Medicine Office/Clinic NoteBridge[facility] Medicine Office/Clinic Note HPI Staff Chel is a 39 year old male presenting for 1 month follow up BARBER 01/29/25 GILMA: 11 PHQ-9: 11 stopped lexapro started effexor. Pt to bring back ADHD screen Follow up for Mental Status: Medication adherence- Yes, takes medication as prescribed Medication refill needed: _ Suicidal thoughts-Not at this time Most recent GILMA: 17 Most recent PHQ: 18 Pt is feeling a little better and he is able to sleep at night, continues to sit with legs both shaking History of Present Illness pt presents today for follow up for anxiety Physical Exam Vitals & Measurements HR: 78(Peripheral) RR: 16 BP: 140/88 SpO2: 98% HT: 175.0 cm HT: 69 in WT: 226.194 lb WT: 102.6 kg BMI: 33.5 General: alert, no acute distress ENMT: oral mucosa moist, no pharyngeal erythema or exudate Cardiovascular: regular rate and rhythm, normal peripheral perfusion Respiratory: Lungs CTA, respirations non labored Extremities: no deformity, no trauma Neurological: oriented x 4, LOC appropriate for age, CN II-XII intact, motor strength equal & normal bilaterally, speech normal Assessment/Plan 1. Anxiety (F41.9: Anxiety disorder, unspecified) pt states he is feeling better since starting Effexor. pt recently started working. states he is struggling staying focused since starting his new job. he says he has always struggled since he was a kid. 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 Ordered: amphetamine-dextroamphetamine, 10 mg = 1 cap(s), Oral, qAM, # 30 cap(s), Refills(s) 0, Pharmacy: [facility], 175, cm, 03/05/25 10:44:00 EDT, Height/Length Dosing, 102.6, kg, 03/05/25 10:44:00 EDT, Weight Dosing venlafaxine, 75 mg = 1 cap(s), Oral, Daily, # 90 cap(s), Refills(s) 1, Pharmacy: [facility], 175, cm, 03/05/25 10:44:00 EDT, Height/Length Dosing, 102.6, kg, 03/05/25 10:44:00 EDT, Weight Dosing venlafaxine, 75 mg = 1 cap(s), Oral, Daily, # 30 cap(s), Refills(s) 1, Pharmacy: [facility], 175, cm, 01/29/25 11:34:00 EDT, Height/Length Dosing, 102.2, kg, 01/29/25 11:34:00 EDT, Weight Dosing 2. ADHD (F90.9: Attention-deficit hyperactivity disorder, unspecified type) self assessment complete. will start Adderall 10mg ER. RTC 4 weeks. medication agreement signed. will do drug screen at next visit. Ordered: amphetamine-dextroamphetamine, 10 mg = 1 cap(s), Oral, qAM, # 30 cap(s), Refills(s) 0, Pharmacy: [facility], 175, cm, 03/05/25 10:44:00 EDT, Height/Length Dosing, 102.6, kg, 03/05/25 10:44:00 EDT, Weight Dosing 3. BMI 33.0-33.9,adult (Z68.33: Body mass index [BMI] 33.0-33.9, adult) BMI education Ordered: amphetamine-dextroamphetamine, 10 mg = 1 cap(s), Oral, qAM, # 30 cap(s), Refills(s) 0, Pharmacy: [facility], 175, cm, 03/05/25 10:44:00 EDT, Height/Length Dosing, 102.6, kg, 03/05/25 10:44:00 EDT, Weight Dosing 4. Smoker (F17.200: Nicotine dependence, unspecified, uncomplicated) consider not smoking Ordered: amphetamine-dextroamphetamine, 10 mg = 1 cap(s), Oral, qAM, # 30 cap(s), Refills(s) 0, Pharmacy: [facility], 175, cm, 03/05/25 10:44:00 EDT, Height/Length Dosing, 102.6, kg, 03/05/25 10:44:00 EDT, Weight Dosing venlafaxine, 75 mg = 1 cap(s), Oral, Daily, # 90 cap(s), Refills(s) 1, Pharmacy: [facility], 175, cm, 03/05/25 10:44:00 EDT, Height/Length Dosing, 102.6, kg, 03/05/25 10:44:00 EDT, Weight Dosing venlafaxine, 75 mg = 1 cap(s), Oral, Daily, # 30 cap(s), Refills(s) 1, Pharmacy: [facility], 175, cm, 01/29/25 11:34:00 EDT, Height/Length Dosing, 102.2, kg, 01/29/25 11:34:00 EDT, Weight Dosing Orders: escitalopram, 20 mg = 1 tab(s), Oral, Daily, # 90 tab(s), Refills(s) 1, Pharmacy: [facility], 175, cm, 11/25/24 15:16:00 EST, Height/Length Dosing, 96.1, kg, 11/25/24 15:16:00 EST, Weight Dosing Follow-up No qualifying data available Problem List/Past Medical History Ongoing ADHD Anxiety BMI 28.0-28.9,adult BMI 31.0-31.9,adult Depressed mood Essential hypertension Fatigue Hematochezia Hypothyroidism IBS - Irritable bowel syndrome Insomnia Internal derangement of right knee Lyme disease Migraine without aura Moderate recurrent major depression Overweight Post-trauma response Shoulder pain Sleep disorder Smoker Historical No qualifying data Procedure/Surgical History Colonoscopy (2019). Medications Adderall XR 10 mg Cap-ER, 10 mg= 1 cap(s), Oral, qAM Effexor XR 75 mg Cap-ER, 75 mg= 1 cap(s), Oral, Daily, 1 refills hyoscyamine 0.375 mg ER Tab, 0.375 mg= 1 tab(s), Oral, Daily, 3 refills levothyroxine 100 mcg (0.1 mg) Tab, 100 mcg= 1 tab(s), Oral, Daily, 3 refills Pantoprazole [address] Tab, 40 mg= 1 tab(s), Oral, Daily, 3 refills SEROquel 25 mg Tab, 25 mg= 1 tab(s), Oral, Daily Allergies Percocet (Unknown) minocycline (Unknown) traMADol (Unknown) Imitrex Social History Alcohol Current. Beer. 1-2 times per week., 03/05/2025 Substance Abuse - Denies S (more content not included)...[facility] CenterComment on above:Result Comment: Electronically Signed By: Aimee Irwin\.br\Date and Time Signed: 03/05/25 11:33 EDTFamily Medicine Office/Clinic Noteon [id number] Medicine Office/Clinic NoteFahunt memorial hospital Medicine Office/Clinic Note HPI Staff Chel is a 39 year old male presenting for 1 month follow up Follow up for Mental Status: BARBER GILMA: 9 PHQ-9: 18, Increased Buspar to 15mg, started Seroquel at bedtime Medication adherence- Yes, takes medication as prescribed Medication refill needed: _ Suicidal thoughts-Not at this time Most recent GILMA: 11 Most recent PHQ: 11 Pt states he wasn't able to take the BuSpar was giving him diarrhea. Pt continues to shake his leg while sitting in here talking to me. Need self assessment for ADHD History of Present Illness pt presents today for follow up on anxiety. will screen for ADHD today. Review of Systems PHQ Score Initial Depression Screen Score: 2 SCORE Physical Exam Vitals & Measurements HR: 72(Peripheral) RR: 18 BP: 154/98 SpO2: 100% HT: 69 in HT: 175.0 cm WT: 225.202 lb WT: 102.15 kg BMI: 33.36 General: alert, no acute distress ENMT: oral mucosa moist, no pharyngeal erythema or exudate Cardiovascular: regular rate and rhythm, normal peripheral perfusion Respiratory: Lungs CTA, respirations non labored Extremities: no deformity, no trauma Neurological: oriented x 4, LOC appropriate for age, CN II-XII intact, motor strength equal & normal bilaterally, speech normal Assessment/Plan 1. Anxiety (F41.9: Anxiety disorder, unspecified) pt feels anxiety is not any better at all. was not able to take the BuSpar because it was causing diarrhea. Seroquel helped with sleeping at night. pt will take self assessment for ADHD home and return with it in 4 weeks. will stop lexapro and change to effexor. all questions answered. RTC 4 weeks Ordered: venlafaxine, 75 mg = 1 cap(s), Oral, Daily, # 30 cap(s), Refills(s) 1, Pharmacy: [facility], 175, cm, 01/29/25 11:34:00 EDT, Height/Length Dosing, 102.2, kg, 01/29/25 11:34:00 EDT, Weight Dosing 2. BMI 31.0-31.9,adult (Z68.31: Body mass index [BMI] 31.0-31.9, adult) BMI education given Ordered: venlafaxine, 75 mg = 1 cap(s), Oral, Daily, # 30 cap(s), Refills(s) 1, Pharmacy: [facility], 175, cm, 01/29/25 11:34:00 EDT, Height/Length Dosing, 102.2, kg, 01/29/25 11:34:00 EDT, Weight Dosing 3. Smoker (F17.200: Nicotine dependence, unspecified, uncomplicated) consider not smoking Ordered: venlafaxine, 75 mg = 1 cap(s), Oral, Daily, # 30 cap(s), Refills(s) 1, Pharmacy: [facility], 175, cm, 01/29/25 11:34:00 EDT, Height/Length Dosing, 102.2, kg, 01/29/25 11:34:00 EDT, Weight Dosing Orders: busPIRone, 15 mg = 1 tab(s), Oral, TID, # 270 tab(s), Refills(s) 0, Pharmacy: [facility], 175, cm, 01/01/25 11:28:00 EST, Height/Length Dosing, 97.3, kg, 01/01/25 11:28:00 EST, Weight Dosing Follow-up No qualifying data available Problem List/Past Medical History Ongoing Anxiety BMI 28.0-28.9,adult BMI 31.0-31.9,adult Depressed mood Essential hypertension Fatigue Hematochezia Hypothyroidism IBS - Irritable bowel syndrome Insomnia Internal derangement of right knee Lyme disease Migraine without aura Moderate recurrent major depression Overweight Post-trauma response Shoulder pain Sleep disorder Smoker Historical No qualifying data Procedure/Surgical History Colonoscopy (2019). Medications Effexor XR 75 mg Cap-ER, 75 mg= 1 cap(s), Oral, Daily, 1 refills escitalopram 20 mg Tab, 20 mg= 1 tab(s), Oral, Daily, 1 refills hyoscyamine 0.375 mg ER Tab, 0.375 mg= 1 tab(s), Oral, Daily, 3 refills levothyroxine 100 mcg (0.1 mg) Tab, 100 mcg= 1 tab(s), Oral, Daily, 3 refills Pantoprazole [address] Tab, 40 mg= 1 tab(s), Oral, Daily, 3 refills SEROquel 25 mg Tab, 25 mg= 1 tab(s), Oral, Daily Allergies Percocet (Unknown) minocycline (Unknown) traMADol (Unknown) Imitrex Social History Alcohol Current, 12/18/2013 Substance Abuse - Denies Substance Abuse, 12/18/2013 Tobacco 10 or more cigarettes (1/2 pack or more)/day in last 30 days Tobacco Use:. Never Smokeless Tobacco Use:. Cigarettes, Ready to change: No. Household tobacco concerns: No. Yes, 07/21/2024 Family History Acute myocardial infarction: Father. Diabetes mellitus type 1: Father. Stroke: Father. Immunizations Vaccine Date Status Comments influenza virus vaccine, inactivated - Not Given Postpone due to refusal SARS-CoV-2 mRNA (tozinameran 5y-11y) vac - Not Given Postpone due to refusal diphtheria/pertussis, acel/tetanus adult 08/20/2019 Recorded measles/mumps/rubella virus vaccine 02/10/1998 RecordedRegional Medical CenterComment on above:Result Comment: Electronically Signed By: Aimee Irwin\.br\Date and Time Signed: 01/29/25 11:47 EDTAmbulatory Visit Summary on [id number] Visit SummaryAmbulatory Visit Summary CHEL CHAPARRO :1985 Visit Date:01/01/2025 Ambulatory Visit Instructions Your Diagnosis Anxiety Moderate recurrent major depression BMI 31.0-31.9,adult Smoker Your Care Team Attending Physician - Aimee Irwin Primary Care Physician - Aimee Irwin This Is Your Medications List busPIRone (busPIRone 15 mg Tab) escitalopram (escitalopram 20 mg Tab) hyoscyamine (hyoscyamine 0.375 mg ER Tab) levothyroxine (levothyroxine 100 mcg (0.1 mg) Tab) pantoprazole (Pantoprazole [address] Tab) quetiapine (SEROquel 25 mg Tab) Procedures Performed Colonoscopy (2019). Discharge Vitals Heart Rate (Peripheral) 86 Respiratory Rate 18 Blood Pressure 126/78 Height 175 cm Height 69 in Weight 97.3 kg Weight 214.51 lb BMI 31.77 What to do next Scheduled Follow-Up Appointments 2024 11:20 AM EDT With: Aimee Irwin Where: [place] [address]- Medications What How Much When Why Instructions New busPIRone (busPIRone 15 mg Tab) 1 Tablets By Mouth 3 times a day Pickup at [facility] New quetiapine (SEROquel 25 mg Tab) 1 Tablets By Mouth Every day Anxiety Moderate recurrent major depression BMI 31.0-31.9,adult Smoker Pickup at [facility] Unchanged escitalopram (escitalopram 20 mg Tab) 1 Tablets By Mouth Every day Unchanged hyoscyamine (hyoscyamine 0.375 mg ER Tab) 1 Tablets By Mouth Every day Unchanged levothyroxine (levothyroxine 100 mcg (0.1 mg) Tab) 1 Tablets By Mouth Every day Unchanged pantoprazole (Pantoprazole [address] Tab) 1 Tablets By Mouth Every day Pharmacy Information [facility]: [address] [place], [place] [id number] [phone] Allergies Percocet (Unknown) minocycline (Unknown) traMADol (Unknown) Imitrex Problems Ongoing - Any problem that you are currently receiving treatment for. Anxiety BMI 28.0-28.9,adult BMI 31.0-31.9,adult Depressed mood Essential hypertension Fatigue Hematochezia Hypothyroidism IBS - Irritable bowel syndrome Internal derangement of right knee Lyme disease Migraine without aura Moderate recurrent major depression Overweight Post-trauma response Shoulder pain Sleep disorder Smoker Patient Survey You may receive a survey via text or e-mail asking about your office visit. Please share your experience with us by completing your survey. We appreciate your feedback and thank you for choosing us for your care. [facility] Medicine Office/Clinic Noteon [id number] Medicine Office/Clinic NoteFahunt memorial hospital Medicine Office/Clinic Note HPI Staff Chel is a 39 year old male presenting for 1 month follow up Follow up for Mental Status: BARBER increased Lexapro and added BuSpar GILMA: 9 PHQ- 9: 13 Medication adherence- Yes, takes medication as prescribed Medication refill needed: _ Suicidal thoughts-Not at this time Most recent GILMA: 9 Most recent PHQ: 18 Pt hasn't noticed any difference since the BARBER , Insomnia is bad has getting worse pt states he hasn't slept for over 2 days. Having problems falling asleep and staying asleep. History of Present Illness pt presents today for follow up on anxiety and depression Review of Systems PHQ Score Initial Depression Screen Score: 6 SCORE Physical Exam Vitals & Measurements HR: 86(Peripheral) RR: 18 BP: 126/78 HT: 69 in HT: 175 cm WT: 97.3 kg WT: 214.51 lb BMI: 31.77 General: alert, no acute distress ENMT: oral mucosa moist, no pharyngeal erythema or exudate Cardiovascular: regular rate and rhythm, normal peripheral perfusion Respiratory: Lungs CTA, respirations non labored Extremities: no deformity, no trauma Neurological: oriented x 4, LOC appropriate for age, CN II-XII intact, motor strength equal & normal bilaterally, speech normal Assessment/Plan 1. Anxiety (F41.9: Anxiety disorder, unspecified) pt is still very anxious and fidgety during entire visit. both legs are shaking. pt continues having trouble sleeping, staying focused and feels his memory is terrible. he can not turn his brain off at night. will increase buspar to 15mg and he was instructed to take it three times a day. will start Seroquel at bedtime. pt is concerned that he can not focus on anything. will do self assessment for ADHD at next visit. I want to get anxiety and sleep better controlled before we discuss ADHD meds. Ordered: busPIRone, 10 mg = 1 tab(s), Oral, TID, # 90 tab(s), Refills(s) 0, Pharmacy: [facility],175, cm, 11/25/24 15:16:00 EST, Height/Length Dosing, 96.1, kg, 11/25/24 15:16:00 EST, Weight Dosing quetiapine, 25 mg = 1 tab(s), Oral, Daily, # 30 tab(s), Refills(s) 0, Pharmacy: [facility], 175, cm, 01/01/25 11:28:00 EST, Height/Length Dosing, 97.3, kg, 01/01/25 11:28:00 EST, Weight Dosing 2. Moderate recurrent major depression (F33.1: Major depressive disorder, recurrent, moderate) PQH9-18. last visit it was 13. Ordered: quetiapine, 25 mg = 1 tab(s), Oral, Daily, # 30 tab(s), Refills(s) 0, Pharmacy: [facility], 175, cm, 01/01/25 11:28:00 EST, Height/Length Dosing, 97.3, kg, 01/01/25 11:28:00 EST, Weight Dosing 3. Insomnia (G47.00: Insomnia, unspecified) pt unable to sleep. feels that is making the anxiety and depression worse. will send in seroquel. 4. BMI 31.0-31.9,adult (Z68.31: Body mass index [BMI] 31.0-31.9, adult) BMI education given Ordered: busPIRone, 10 mg = 1 tab(s), Oral, TID, # 90 tab(s), Refills(s) 0, Pharmacy: [facility],175, cm, 11/25/24 15:16:00 EST, Height/Length Dosing, 96.1, kg, 11/25/24 15:16:00 EST, Weight Dosing quetiapine, 25 mg = 1 tab(s), Oral, Daily, # 30 tab(s), Refills(s) 0, Pharmacy: [facility], 175, cm, 01/01/25 11:28:00 EST, Height/Length Dosing, 97.3, kg, 01/01/25 11:28:00 EST, Weight Dosing 5. Smoker (F17.200: Nicotine dependence, unspecified, uncomplicated) consider not smoking Ordered: busPIRone, 10 mg = 1 tab(s), Oral, TID, # 90 tab(s), Refills(s) 0, Pharmacy: [facility],175, cm, 11/25/24 15:16:00 EST, Height/Length Dosing, 96.1, kg, 11/25/24 15:16:00 EST, Weight Dosing quetiapine, 25 mg = 1 tab(s), Oral, Daily, # 30 tab(s), Refills(s) 0, Pharmacy: [facility], 175, cm, 01/01/25 11:28:00 EST, Height/Length Dosing, 97.3, kg, 01/01/25 11:28:00 EST, Weight Dosing Orders: amlodipine, 10 mg = 1 tab(s), Oral, Daily, # 90 tab(s), Refills(s) 0, Pharmacy: [facility], 175, cm, 07/21/24 11:47:00 EDT, Height/Length Dosing, 88.1, kg, 07/21/24 11:47:00 EDT, Weight Dosing busPIRone, 15 mg = 1 tab(s), Oral, TID, # 270 tab(s), Refills(s) 0, Pharmacy: [facility], 175, cm, 01/01/25 11:28:00 EST, Height/Length Dosing, 97.3, kg, 01/01/25 11:28:00 EST, Weight Dosing Follow-up No qualifying data available Problem List/Past Medical History Ongoing Anxiety BMI 28.0-28.9,adult BMI 31.0-31.9,adult Depressed mood Essential hypertension Fatigue Hematochezia Hypothyroidism IBS - Irritable bowel syndrome Insomnia Internal derangement of right knee Lyme disease Migraine without aura Moderate recurrent major depression Overweight Post-trauma response Shoulder pain Sleep disorder Smoker Historical No qualifying data Procedure/Surgical History Colonoscopy (2019). Medications busPIRone 15 mg Tab, 15 mg= 1 tab(s), Oral, TID escitalopram 20 mg Tab, 20 mg= 1 tab(s), Oral, Daily, 1 refills hyoscyamine 0.375 mg ER Tab, 0.375 mg= 1 tab(s), Oral, Daily, 3 refills levothyroxine 100 mcg (0.1 mg) Tab, 100 mcg= 1 tab(s), Oral (more content not included)...[facility] Medical CenterComment on above:Result Comment: Electronically Signed By: Aimee Irwin\.br\Date and Time Signed: 01/01/25 13:05 ESTReminderson [id number] From: Aimee Irwin To: B - Clinical; Sent: 11/28/2024 12:46:30 EST Show up: 11/28/2024 12:47:00 EST Subject: Ambulatory Reminder Due Date/Time: 11/29/2024 12:46:00 EST testosterone was normal Results: Date Result Name Value Ref Range 11/25/2024 15:59 Testoster Tot 294 ng/dL ([id number] - ) Pt has been notified.[facility] Medical CenterTestost Totalon 11-28-2024 Testosterone [Mass/Vol]294 ng/dLInvalid Interpretation [id number] Medical Specialty Hospital - ColumbusComment on above:Result Comment: Adult male reference interval is based on a population of healthy nonobese males (BMI <30) between 19 and 39 years old. marguerite Headley.al. JCEM 2017,102;[id number]. PMID: [id number]. Performed at: [facility] [address] [id number] PhD Rina MetcalfPerformed By: #### [id number] ####[facility] [address] [place], [place] [address]XXCvt [id number] Qn 0.88 m[IU]/LNormal0.34-5.60Fisher [facility] Cross HospitalComment on above:Performed By: #### [id number] #### [facility] [address] [place], [place] [address]Sjfgzy Medicine Office/Clinic Noteon [id number] Medicine Office/Clinic NoteFamily Medicine Office/Clinic Note HPI Staff Chel is a 39 year old male presenting for follow up Patient is here for follow up on hypertension. BARBER 07/23/24 Amlodipine increased Pt states hasn't taken blood pressure medication in a few months due to he says it has been runningnormal. When checking at home it is been anywhere from 130's- 140's/ 80's-90's Follow up for Mental Status: BARBER 07/23/24 Lexapro increased GILMA: 10 PHQ-9: 12 Medication adherence- Yes, takes medication as prescribed Medication refill needed: _ Suicidal thoughts-Not at this time Most recent GILMA: 9 Most recent PHQ: 13 Pt states he hasn't noticed any change with the increase, he has a really hard time falling asleep since increasing the lexapro and unable to focus and has been forgetting a lot more. History of Present Illness pt presents today for follow up on hypertension and anxiety Review of Systems PHQ Score Initial Depression Screen Score: 1 SCORE Physical Exam Vitals & Measurements HR: 78(Peripheral) RR: 18 BP: 138/94 SpO2: 99% HT: 69 in HT: 175.0 cm WT: 96.1 kg WT: 211.864 lb BMI: 31.38 General: alert, no acute distress ENMT: oral mucosa moist, no pharyngeal erythema or exudate Cardiovascular: regular rate and rhythm, normal peripheral perfusion Respiratory: Lungs CTA, respirations non labored Extremities: no deformity, no trauma Neurological: oriented x 4, LOC appropriate for age, CN II-XII intact, motor strength equal & normal bilaterally, speech normal Assessment/Plan 1. Essential hypertension (I10: Essential (primary) hypertension) pt stopped taking amlodipine 2 months ago. BP isn't too bad in office today. pt is very anxious andis shaking is leg through entire visit Ordered: busPIRone, 10 mg = 1 tab(s), Oral, TID, # 90 tab(s), Refills(s) 0, [facility], cm, 11/25/24 15:16:00 EST, Height/Length Dosing, 96.1, kg, 11/25/24 15:16:00 EST, Weight Dosing Testosterone Level Total Thyroid Stimulating Hormone 2. Anxiety (F41.9: Anxiety disorder, unspecified) will increase lexapro and add buspar. RTC 2 months Ordered: busPIRone, 10 mg = 1 tab(s), Oral, TID, # 90 tab(s), Refills(s) 0, [facility], cm, 11/25/24 15:16:00 EST, Height/Length Dosing, 96.1, kg, 11/25/24 15:16:00 EST, Weight Dosing Testosterone Level Total Thyroid Stimulating Hormone 3. Hypothyroidism (E03.9: Hypothyroidism, unspecified) will check TSH Ordered: busPIRone, 10 mg = 1 tab(s), Oral, TID, # 90 tab(s), Refills(s) 0, [facility],175, cm, 11/25/24 15:16:00 EST, Height/Length Dosing, 96.1, kg, 11/25/24 15:16:00 EST, Weight Dosing Testosterone Level Total Thyroid Stimulating Hormone 4. Fatigue (R53.83: Other fatigue) would like testosterone checked Ordered: busPIRone, 10 mg = 1 tab(s), Oral, TID, # 90 tab(s), Refills(s) 0, [facility],175, cm, 11/25/24 15:16:00 EST, Height/Length Dosing, 96.1, kg, 11/25/24 15:16:00 EST, Weight Dosing Testosterone Level Total Thyroid Stimulating Hormone 5. BMI 31.0-31.9,adult (Z68.31: Body mass index [BMI] 31.0-31.9, adult) BMI education Ordered: busPIRone, 10 mg = 1 tab(s), Oral, TID, # 90 tab(s), Refills(s) 0, Pharmacy: [facility] 1622,175, cm, 11/25/24 15:16:00 EST, Height/Length Dosing, 96.1, kg, 11/25/24 15:16:00 EST, Weight Dosing Testosterone Level Total Thyroid Stimulating Hormone 6. Smoker (F17.200: Nicotine dependence, unspecified, uncomplicated) consider not smoking Ordered: busPIRone, 10 mg = 1 tab(s), Oral, TID, # 90 tab(s), Refills(s) 0, Pharmacy: [facility] 1622,175, cm, 11/25/24 15:16:00 EST, Height/Length Dosing, 96.1, kg, 11/25/24 15:16:00 EST, Weight Dosing Testosterone Level Total Thyroid Stimulating Hormone Orders: escitalopram, 20 mg = 1 tab(s), Oral, Daily, # 90 tab(s), Refills(s) 1, Pharmacy: [facility] 1622, 175, cm, 11/25/24 15:16:00 EST, Height/Length Dosing, 96.1, kg, 11/25/24 15:16:00 EST, Weight Dosing escitalopram, 10 mg = 1 tab(s), Oral, Daily, # 90 tab(s), Refills(s) 0, Pharmacy: [facility] 1622, 175, cm, 07/21/24 11:47:00 EDT, Height/Length Dosing, 88.1, kg, 07/21/24 11:47:00 EDT, Weight Dosing hyoscyamine, 0.375 mg = 1 tab(s), Oral, Daily, # 90 tab(s), Refills(s) 3, Pharmacy: [facility] 1622, 175, cm, 11/25/24 15:16:00 EST, Height/Length Dosing, 96.1, kg, 11/25/24 15:16:00 EST, Weight Dosing pantoprazole, 40 mg = 1 tab(s), Oral, Daily, # 90 tab(s), Refills(s) 3, Pharmacy: [facility] 1622, 175, cm, 11/25/24 15:16:00 EST, Height/Length Dosing, 96.1, kg, 11/25/24 15:16:00 EST, Weight Dosing Follow-up No qualifying data available Problem List/Past Medical History Ongoing Anxiety BMI 28.0-28.9,adult BMI 31.0-31.9,adult Depressed mood Essential hypertension Fatigue Hematochezia Hypothyroidism IBS - Irritable bowel syndrome Internal derangement of right knee Lyme disease Migraine without aura Overwei (more content not included)...[facility] CenterComment on above:Result Comment: Electronically Signed By: Luz MODI, Aimee Simpson\.br\Date and Time Signed: 11/25/24 15:35 ESTInterdisciplinary Note - Social Workeron [id number] Note - Social WorkerInterdisciplinary Note - C D Stripper Consult for positive depression screen received. This SW attempted to make a call to discuss however there was no answer and a voicemail was not able to be left. SW will remain available.[facility] CenterFami Medicine Office/Clinic Noteon [phone] Office/Clinic NoteFami Medicine Office/Clinic Note Chief Complaint elevated BP & tooth pain HPI Staff Follow up to [facility] due to tooth pain. At that time BP was elevated. Has been taking Ibuprofen at home for tooth pain. Does go to dentist tomorrow. States BP has been running 170-140 over 110 for the past week.. Denies sx w/elevated BP. Denies Fam Hx of HTN. PHQ 12 GILMA 10 History of Present Illness pt presents today for elevated BP and worsening anxiety Review of Systems PHQ Score Initial Depression Screen Score: 0 SCORE Physical Exam Vitals & Measurements T: 36.7 ?C(Tympanic) HR: 73(Peripheral) RR: 16 BP: 142/90 SpO2: 98% HT: 69 in HT: 175 cm WT: 88.1 kg WT: 193.82 lb BMI: 28.77 General: alert, no acute distress ENMT: oral mucosa moist, no pharyngeal erythema or exudate Cardiovascular: regular rate and rhythm, normal peripheral perfusion Respiratory: Lungs CTA, respirations non labored Extremities: no deformity, no trauma Neurological: oriented x 4, LOC appropriate for age, CN II-XII intact, motor strength equal & normal bilaterally, speech normal Assessment/Plan 1. Essential hypertension (I10: Essential (primary) hypertension) BP elevated will increase amlodipine. RTC 4 weeks 2. Anxiety (F41.9: Anxiety disorder, unspecified) pt is feeling like anxiety is much worse. will increase lexapro 3. Smoker (F17.200: Nicotine dependence, unspecified, uncomplicated) consider not smoking Ordered: escitalopram, 5 mg = 1 tab(s), Oral, Daily, # 30 tab(s), Refills(s) 0, [facility], [facility], cm, 07/21/24 11:47:00 EDT, Height/Length Dosing, 88.1, kg, 07/21/24 11:47:00 EDT, Weight Dosing 4. BMI 28.0-28.9,adult (Z68.28: Body mass index [BMI] 28.0-28.9, adult) BMI education given Ordered: escitalopram, 5 mg = 1 tab(s), Oral, Daily, # 30 tab(s), Refills(s) 0, [facility], [facility], cm, 07/21/24 11:47:00 EDT, Height/Length Dosing, 88.1, kg, 07/21/24 11:47:00 EDT, Weight Dosing 5. Overweight (E66.3: Overweight) see above Ordered: escitalopram, 5 mg = 1 tab(s), Oral, Daily, # 30 tab(s), Refills(s) 0, Pharmacy: [facility] 1622, 175, cm, 07/21/24 11:47:00 EDT, Height/Length Dosing, 88.1, kg, 07/21/24 11:47:00 EDT, Weight Dosing Orders: amlodipine, 5 mg = 1 tab(s), Oral, Daily, # 30 tab(s), Refills(s) 0, [facility], 175, cm, 07/21/24 11:47:00 EDT, Height/Length Dosing, 88.1, kg, 07/21/24 11:47:00 EDT, Weight Dosing amlodipine, 10 mg = 1 tab(s), Oral, Daily, # 90 tab(s), Refills(s) 0, Pharmacy: [facility] 1622, 175, cm, 07/21/24 11:47:00 EDT, Height/Length Dosing, 88.1, kg, 07/21/24 11:47:00 EDT, Weight Dosing escitalopram, 10 mg = 1 tab(s), Oral, Daily, # 90 tab(s), Refills(s) 0, Pharmacy: [facility] 1622, 175, cm, 07/21/24 11:47:00 EDT, Height/Length Dosing, 88.1, kg, 07/21/24 11:47:00 EDT, Weight Dosing Follow-up No qualifying data available Problem List/Past Medical History Ongoing Anxiety BMI 28.0-28.9,adult BMI 31.0-31.9,adult Depressed mood Essential hypertension Hematochezia Hypothyroidism IBS - Irritable bowel syndrome Internal derangement of right knee Lyme disease Migraine without aura Overweight Post-trauma response Shoulder pain Sleep disorder Smoker Historical No qualifying data Procedure/Surgical History Colonoscopy (2019). Medications amLODIPine 10 mg Tab, 10 mg= 1 tab(s), Oral, Daily amoxicillin 500 mg Cap escitalopram 10 mg Tab, 10 mg= 1 tab(s), Oral, Daily hyoscyamine 0.375 mg ER Tab, 0.375 mg= 1 tab(s), Oral, Daily levothyroxine 100 mcg (0.1 mg) Tab, 100 mcg= 1 tab(s), Oral, Daily, 3 refills Pantoprazole [address] Tab, 40 mg= 1 tab(s), Oral, Daily Allergies Percocet (Unknown) minocycline (Unknown) traMADol (Unknown) Imitrex Social History Alcohol Current, 12/18/2013 Substance Abuse - Denies Substance Abuse, 12/18/2013 Tobacco 10 or more cigarettes (1/2 pack or more)/day in last 30 days Tobacco Use:. Never Smokeless Tobacco Use:. Cigarettes, Ready to change: No. Household tobacco concerns: No. Yes, 07/21/2024 Family History Acute myocardial infarction: Father. Diabetes mellitus type 1: Father. Stroke: Father. Immunizations Vaccine Date Status Comments influenza virus vaccine, inactivated - Not Given Postpone due to refusal SARS-CoV-2 mRNA (tozinameran 5y-11y) vac - Not Given Postpone due to refusal diphtheria/pertussis, acel/tetanus adult 08/20/2019 Recorded measles/mumps/rubella virus vaccine 02/10/1998 [facility]Result Comment: Electronically Signed By: Aimee Irwin.david\Date and Time Signed: 07/23/24 17:32 EDTBasic Metabolic Profon [id number] gap [Moles/Vol]10 mmol/LNormal9-16[facility] CenterComment on above:Performed By: #### TSH #### [address] [place] [address] [employer] Truck Driver: CLEO Brooks/CRE Qaejx36Btrmpu1-42Zgnwg [facility] Comment on above:Performed By: #### TSH #### [address] [place] [address] Team Otr Truck Driver: Dana Mendoza MDCalcium [Mass/Vol]9.6 mg/dLNormal8.6-10.4[facility] CenterComment on above:Performed By: #### TSH #### [address] [place] [address] Team Otr Truck Driver: Dana Mendoza MDChloride [Moles/Vol]104 mmol/KMxwwog10-164RuxpmKettering Health – Soin Medical CenterComment on above:Performed By: #### TSH #### [address] [place] [address] Team Otr Truck Driver: Dana Mendoza MDCO2 [Moles/Vol]26 mmol/SSkhasn73-35NxyurKettering Health – Soin Medical CenterComment on above:Performed By: #### TSH #### [address] [place] [address] Team Otr Truck Driver: LORETO Brooksreatinine [Mass/Vol]0.8 mg/dLNormal0.70-1.20[facility] CenterComment on above:Performed By: #### TSH #### [address] [place], [place] [id number] Team Otr Truck Driver: Dana Mendoza MDGFR/1.73 sq M.predicted among non-blacks MDRD (S/P/Bld) [Vol rate/Area]mL/min/{1.73_m2}Normal>60[facility] CenterComment on above:Result Comment: These results are not intended for use in patients <18 years of age. eGFR results are calculated without a race factor using the 2020 CKD-EPI equation. Careful clinical correlation is recommended, particularly when comparing to results calculated using previous equations. The CKD-EPI equation is less accurate in patients with extremes of muscle mass, extra-renal metabolism of creatine, excessive creatine ingestion, or following therapy that affects renal tubular secretion.Performed By: #### TSH #### [address] [place] [address] Team [employer] Driver: Dana Mendoza MDGlucose [Mass/Vol]96 mg/jBHczgui54-77Dnojg [facility] CenterComment on above:Performed By: #### TSH #### [address] [place] [id number] Team Otr Truck Driver: GEOFFREY Brooksotassium [Moles/Vol]4.5 mmol/LNormal3.7-5.3MMarietta Memorial Hospital HospitalComment on above:Performed By: #### TSH #### [address] [place] [address] Team Otr Truck Driver: Dana Mendoza MDSodium [Moles/Vol]140 mmol/IEdptkw705-675HofqrKettering Health – Soin Medical CenterComment on above:Performed By: #### TSH #### [address] [place], [facility]83 Team Otr Truck Driver: aDna Mendoza MDUrea nitrogen [Mass/Vol]13 mg/dLNormal6-20[facility] HospitalComment on above:Performed By: #### TSH #### [address] [place] [address] Team Otr Truck Driver: GARY Brooks with Diffon 15-19-0032Ttt. Basophil0.08 k/uL Normal0.00-0.20MerOhio [facility] Surgical Hospital HospitalComment on above:Performed By: #### TSH #### [address] [place], [facility]83 Team Otr Truck Driver: Manuel Brooks.Imm.Granulocyte0.03 k/uLNormal0.00-0.30MerOhio Valley Surgical Hospital HospitalComment on above:Performed By: #### TSH #### [address] [place], [facility]83 Team [employer] Truck Driver: Manuel Brooks.Neutrophil (Seg)8.04 k/uLNormal1.50-8.10[facility] HospitalComment on above:Performed By: #### TSH #### [address] [place] [address] [employer] Driver: Dana Mendoza MDBasophils/100 WBC (Bld)1 %Normal0-2[facility] HospitalComment on above:Performed By: #### TSH #### [address] [place] [address] Team Otr Truck Driver: Dana Mendoza MDEosinophils (Bld) [#/Vol]0.12 10*3/uLNormal 0.00-0.44MerOhio Valley Surgical Hospital HospitalComment on above:Performed By: #### TSH #### [address] [place], [place] [address] Team [employer] Driver: Dana Sturtz, MDEosinophils/100 WBC (Bld)1 %Normal1-4[facility] HospitalComment on above:Performed By: #### TSH #### [address] [place] [address] Team Otr Truck Driver: Dana Mendoza MDErythrocyte distribution width (RBC) [Ratio]13.5 % Gmzeua79.8-14.4[facility] HospitalComment on above:Performed By: #### TSH #### [address] [place] [address] Team [employer] Driver: Dana Mendoza MDHematocrit (Bld) [Volume fraction]44.5 %Normal 40.7-50.3[facility] HospitalComment on above:Performed By: #### TSH #### [address] [place] [address] Team Otr Truck Driver: Dana Mendoza MDHemoglobin (Bld) [Mass/Vol]15.0 g/dLNormal 13.0-17.0[facility] HospitalComment on above:Performed By: #### TSH #### [address] [place] [address] Team Otr [employer] Driver: Dana Mendoza MDImmature granulocytes/100 WBC (Bld)0 %Qywlfa8Wyonz [facility] HospitalComment on above:Performed By: #### TSH #### [address] [place], [place] [address] Team Otr Truck Driver: Dana Mendoza MDLymphocytes (Bld) [#/Vol]3.40 10*3/uLNormal 1.10-3.70[facility] HospitalComment on above:Performed By: #### TSH #### [address] [place] [id number] Team Otr Truck Driver: Jesús Brooksmphocytes/100 WBC (Bld)27 %Zpjxhb07-80Tjaoq [facility] HospitalComment on above:Performed By: #### TSH #### [address] [place], [place] [address] Team [employer] Driver: PATRICK BrooksCH (RBC) [Entitic mass]31.6 oyXfraih02.2-33.5 [facility] HospitalComment on above:Performed By: #### TSH #### [address] [place], [place] [address] Team Otr Truck Driver: CINTIA BrooksC (RBC) [Mass/Vol]33.7 g/kLLoefej18.4-34.8[facility] HospitalComment on above:Performed By: #### TSH #### [address] [place], [place] [address] Team Otr Truck Driver: PATRICK BrooksCV (RBC) [Entitic vol]93.9 zGAwhvel25.6-102.9 [facility] HospitalComment on above:Performed By: #### TSH #### [address] [place], [place] [address] Team Otr Truck Driver: PATRICK Brooksonocytes (Bld) [#/Vol]0.74 10*3/uLNormal0.10-1.20 [facility] HospitalComment on above:Performed By: #### TSH #### [address] [place], [place] [address] Team Otr [employer] Driver: PATRICK Brooksonocytes/100 WBC (Bld)6 %Normal3-12[facility] HospitalComment on above:Performed By: #### TSH #### [address] [place] [address] Team Otr Truck Driver: Dana Mendoza MDNeutrophil (Seg)65 %Ajchxp06-13Hiwxu [facility] HospitalComment on above:Performed By: #### TSH #### [address] [place] [address] Team Otr Truck Driver: VERN Brooks Automated0.0 per 100 WBCNormal0.0[facility] HospitalComment on above:Performed By: #### TSH #### [address] [place] [address] Team [employer]tr [employer] Driver: Amrit Brooks mean volume (Bld) [Entitic vol]9.5 fL Normal8.1-13.5MerOhio Valley Surgical Hospital HospitalComment on above:Performed By: #### TSH #### [address] [place] [address] Team Otr Truck Driver: Baldomero Brooks (Bld) [#/Vol]475 10*3/tZIzxk146-001Sifrs [facility] HospitalComment on above:Performed By: #### TSH #### [address] [place] [address] Team Otr Truck Driver: KENY Brooks (Bld) [#/Vol]4.74 10*6/uLNormal4.21-5.77[facility] HospitalComment on above:Performed By: #### TSH #### [address] [place] [address] Team Otr Truck Driver: SHILPA Brooks (Bld) [#/Vol]12.4 10*3/uLHigh3.5-11.3[facility] HospitalComment on above:Performed By: #### TSH #### [address] [place] [address] Team Otr Truck Driver: Jacki Brooks Profileon 98-96-0728Pvsedmx [Mass/Vol]4.1 g/dLNormal3.5-5.2[facility] HospitalComment on above:Performed By: #### TSH #### [address] [place] [address] Team [employer]tr [employer] Driver: Dana Mendoza MDAlbumin/Glob Ratio1.3Yadmyd2.0-2.5MerOhio Valley Surgical Hospital HospitalComment on above:Performed By: #### TSH #### [address] [place] [address] Team Otr Truck Driver: Gianna Brookskaline Phos84 U/ENtadcx20-419Fqyah [facility] HospitalComment on above:Performed By: #### TSH #### [address] [place] [address] Team Otr Truck Driver: Dana Mendoza MDALT [Catalytic activity/Vol]23 U/EEqrcnw93-45Qxncb [facility] HospitalComment on above:Performed By: #### TSH #### [address] [place] [address] Team Otr Truck Driver: Dana Mendoza MDAST [Catalytic activity/Vol]24 U/GNdbzzo29-71Klfti [facility] HospitalComment on above:Performed By: #### TSH #### [address] [place] [address] Team [employer]tr [employer] Driver: Dana Mendoza MDBilirubin [Mass/Vol]mg/dLNormal0.00-1.20MerOhio [facility] HospitalComment on above:Performed By: #### TSH #### [address] [place] [address] Team Otr Truck Driver: Dana Mendoza MDBilirubin, IndirectCan not be calculatedNormal 0.0-1.0[facility] HospitalComment on above:Performed By: #### TSH #### [address] [place], [place] [address] Team Otr Truck Driver: Josias Brooks.indirect [Mass/Vol]mg/dLNormal0.00-0.30 [facility] HospitalComment on above:Performed By: #### TSH #### Lab [address] [place], [place] [address] Team Otr Truck Driver: Dana Mendoza MDProtein [Mass/Vol]7.0 g/dLNormal6.6-8.7MerHartford HospitalComment on above:Performed By: #### TSH #### Lab [address] [place] [address] Team Otr Truck Driver: Dana Mendoza MDFREE T3on [id number] T33.55 pg/mlLNormal 2.18-3.98The [facility] CampusComment on above:Performed By: #### FT3, TSH ####[facility] [address] [place] [address]DrIshaan DowningEE T4on 07-57-5047Dxzh T4 [Mass/Vol]1.12 ng/dLNormal0.76-1.46The [facility] CampusComment on above:Performed By: #### FT4 ####[facility] [address] [place] [address]DrEliana NguyenTSHon 91-09-6234VVW2.078 uIU/mLCritically low0.358-3.740The [facility] CampusComment on above:Performed By: #### FT3, TSH ####[facility] [address] [place], [place] [address]Dr. Christelle NguyenACETAMINOPHENon 01-11-2023 Acetaminophen [Mass/Vol]ug/mLCritically low10.0-30.0The [facility] CampusComment on above:Performed By: #### TSH, ACET, CMP, SALYC, ETH, HSTROPN #### [facility] [address] [place] [address] [address] Christelle Churchill AUTO DIFFon [id number] #0.1 103/ulNormal0.0-0.1The [facility] CampusComment on above:Performed By: #### CBC #### [facility] [address] [place] [address] Dr. Yilan ChangBasophils/100 WBC (Bld)0.7 %Normal0.2-2.0[facility] Comment on above:Performed By: #### CBC #### [facility] [address] [place] [address] Dr. Christelle Bates #0.1 103/ulNormal0.0-0.7The [facility] CampusComment on above: Performed By: #### CBC #### [facility] [address] [place] [address] Dr. Christelle Schwarzosinophils/100 WBC (Bld)1.3 %Normal0.9-7.0The [facility] Comment on above:Performed By: #### CBC #### [facility] [address] [place] [address] Dr. Christelle Schwarzrythrocyte distribution width (RBC) [Ratio]14.1 %Ypuczv41.0-15.0 The [facility] CampusComment on above:Performed By: #### CBC #### [facility] [address] [place] [address] Dr. Christelle NguyenHematocrit (Bld) [Volume fraction]44.3 %Ehzeep11.0-54.0The [facility] CampusComment on above:Performed By: #### CBC #### [facility] [address] [place] [address] Dr. Christelle NguyenHemoglobin (Bld) [Mass/Vol]15.5 g/hTLutsce97.0-18.0The [facility] CampusComment on above:Performed By: #### CBC #### [facility] [address] [place] [address] Dr. Christelle Roca #0.05 10e3/ulCritically high0.00-0.03[facility] Comment on above:Performed By: #### CBC #### [facility] [address] [place] [address] Dr. Christelle Roca %0.5 %Normal0.0-0.5The [facility] CampusComment on above: Performed By: #### CBC #### [facility] [address] [place] [address] Dr. Christelle Abbasi #2.7 103/ulNormal1.2-3.8The [facility] CampusComment on above:Performed By: #### CBC #### [facility] [address] [place] [address] Dr. Christelle Edenmphocytes/100 WBC (Bld)25.5 %Gjndqd42.5-60.0The [facility] CampusComment on above:Performed By: #### CBC #### [facility] [address] [place] [address] Dr. Christelle Wyman DIFF REQNONormalThe [facility] Main CampusComment on above: Performed By: #### CBC #### [facility] [address] [place] [address] Dr. Christelle Land (RBC) [Entitic mass]31.4 dkYqraae93.9-34.0The [facility] CampusComment on above:Performed By: #### CBC #### [facility] [address] [place] [address] Dr. Christelle Land (RBC) [Mass/Vol]35.0 g/zUVyqstq90.9-35.2The [facility] CampusComment on above:Performed By: #### CBC #### [facility] [address] [place] [address] Dr. Christelle Land (RBC) [Entitic vol]89.9 gCOogoul54.0-94.0The [facility] CampusComment on above:Performed By: #### CBC #### [facility] [address] [place] [address] Dr. Christelle Reynolds #0.6 103/ulNormal0.3-0.8The [facility] CampusComment on above:Performed By: #### CBC #### [facility] [address] [place] [address] Dr. Christelle Footeocytes/100 WBC (Bld)5.5 %Normal1.7-12.0[facility] Comment on above:Performed By: #### CBC #### [facility] [address] [place] [address] [address] Christelle Mitchell #7.1 103/ulCritically high1.4-6.5[facility] Comment on above:Performed By: #### CBC #### [facility] [address] [place] [address] Dr. Christelle Leyvautrophils/100 WBC (Bld)66.5 %Vivtzu93.0-75.0The [facility] Healthcare Main CampusComment on above:Performed By: #### CBC #### [facility] [address] [place] [address] Dr. Christelle Nerilet mean volume (Bld) [Entitic vol]10.2 fLNormal9.5-13.5The [facility] CampusComment on above:Performed By: #### CBC #### [facility] [address] [place] [address] Dr. Christelle NguyenPLT413 103/laFfbanb550-970Sru [facility] CampusComment on above: Performed By: #### CBC #### [facility] [address] [place] [address] Dr. Christelle NguyenRBC4.93 106/ulNormal4.70-6.10The [facility] CampusComment on above:Performed By: #### CBC #### [facility] [address] [place] [address] Dr. Christelle NguyenWBC10.7 103/ulNormal4.0-11.0The [facility] CampusComment on above:Performed By: #### CBC #### [facility] [address] [place] [address] Dr. Christelle VicenteDIMERon 61-67-8180U-DIMER0.19 mg/L FEUNormal<=0.59The [facility] on above:Performed By: #### PTT, PT, DDIM #### [facility] [address] [place] [address] Dr. Christelle Negrete-DIMER COMMENTSSEE BELOWNormalThCleveland Clinic Children's Hospital for RehabilitationComment on above:Result Comment: Increases in D-Dimer concentration observed with thromboembolic events can be variable due to localization, size, and age of the thrombus. Therefore, a thromboembolic event cannot be diagnosed with certainty on the basis of the reference range. D-Dimers may also be elevated for a variety of disorders including: advanced age, , coronary disease, cancer, liver disease, infection, inflammation, hematoma, DIC, trauma, post-surgery, diabetes, thrombolytic or anticoagulant therapy, stress, and generalized hospitalization. Performed By: #### PTT, PT, DDIM #### [facility] [address] [place] [address] Dr. Christelle NguyenDRUG SCREEN RAPID (URINE)on [id number]uLMFUVATF [facility] on above:Performed By: #### DRUGRPD #### [facility] [address] [place] [address] Dr. Christelle NguyenBARNegativeExcelsior Springs Medical CenteralNEGProMedica Fostoria [facility] on above: Performed By: #### DRUGRPD #### [facility] [address] [place] [address] Dr. Christelle NguyenBUPNegativeNormalNEGATIVEKettering Health – Soin Medical Center on above: Performed By: #### DRUGRPD #### [facility] [address] [place] [address] Dr. Christelle NguyenBZONegativeExcelsior Springs Medical CenteralNEGProMedica Fostoria [facility] Hospital on above: Performed By: #### DRUGRPD #### [facility] [address] [place] [address] Dr. Christelle ContiCNegativermalNEGProMedica Fostoria Community Hospital on above: Performed By: #### DRUGRPD #### [facility] [address] [place] [address] Dr. Christelle HuizarFulton County Health Center on above: Result Comment: AMP (Amphetamine): 500ng/mL, BAR (Barbituates): 200 ng/mL, BZO (Benzodiazepines): 150 ng/mL, BUP (Buprenorphine): 10 ng/mL, OLIVIA (Cocaine): 150 ng/mL, mAMP (Methamphetamine): 500 ng/mL, MTD (Methadone): 200 ng/mL, OPI (Opiates): 100 ng/mL, OXY (Oxycodone): 100 ng/mL, PCP (Phencyclidine): 25 ng/mL, PPX (Propoxyphene): 300 ng/mL, THC (Cannabinoids): 50 ng/mL, TCA (Trycyclic Antidepressants): 300 ng/mLPerformed By: #### DRUGRPD #### [facility] [address] [place] [address] Dr. Christelle NguyenDRUG CUT HEADERDRUG CLASS TEST SYSTEM CUT-OFF CONCENTRATIONS ARE FOLLOWS:NormalBrecksville VA / Crille Hospitalment on above:Performed By: #### DRUGRPD #### [facility] [address] [place] [address] Dr. Christelle NguyenmAMPNegativeNormalNEGATIVEOhiohealth Berger HospitalComment on above: Performed By: #### DRUGRPD #### [facility] [address] [place] [address] Dr. Christelle NguyenMTDNegativeNormalNEGATIVEOhiohealth Berger HospitalComment on above: Performed By: #### DRUGRPD #### [facility] [address] [place] [address] Dr. Christelle NguyenOPINegativeNormalNEGATIVEOhiohealth Berger HospitalComselect [facility] on above: Performed By: #### DRUGRPD #### [facility] [address] [place] [address] Dr. Christelle NguyenOXYNegativeNormalNEGATIVEOhiohealth Berger HospitalComment on above: Performed By: #### DRUGRPD #### [facility] [address] [place] [address] Dr. Christelle NguyenPCPNegativeNormalNEGATIVEOhiohealth Berger HospitalComment on above: Performed By: #### DRUGRPD #### [facility] [address] [place] [address] Dr. Christelle NguyenPPXNegativeNormalNEGATIVEOhiohealth Berger HospitalComment on above: Performed By: #### DRUGRPD #### [facility] [address] [place] [address] Dr. Christelle NguyenTCANegativeNormalNEGATIVEOhiohealth Berger HospitalComment on above: Performed By: #### DRUGRPD #### [facility] [address] [address] [address] Christelle QuinonezCNegativeNormalNEGATIVEOhiohealth Berger HospitalComment on above: Performed By: #### DRUGRPD #### [facility] [address] [address] [address] Christelle LalaANOL (BLD ALC)on [id number] NOTENOTE: 80 mg/dl is the legal limit for a blood alcohol levelNoOhioHealth Hardin Memorial HospitalComment on above: Performed By: #### TSH, ACET, CMP, SALYC, ETH, HSTROPN ####[facility] [address] [address]Dr. Christelle ChangEthanol [Mass/Vol]61 mg/dLNoOhioHealth Hardin Memorial HospitalComment on above:Performed By: #### TSH, ACET, CMP, SALYC, ETH, HSTROPN ####[facility] [address] [address]Dr. Christelle ChangFREE T3on 13-78-0983THDR T33.41 pg/mlLNormal2.18-3.98The [facility] CampusComselect specialty hospital[facility] on above:Performed By: #### FT3 #### [facility] [address] [place] [address] Dr. Christelle Quick T4on 08-56-1406Itrs T4 [Mass/Vol]1.24 ng/dLNormal0.76-1.46 The [facility] CampusComment on above:Performed By: #### FT4 ####[facility] [address] [place], [place] [address]Dr.Christelle ChangPROF 14(COMP METB)on 02-85-2932Mwkbucc [Mass/Vol]4.0 g/dLNormal3.4-5.0The [facility] CampusComment on above:Performed By: #### TSH, ACET, CMP, SALYC, ETH, HSTROPN #### [facility] [address] [place] [address] Dr. Christelle NguyenAlbumin/Globulin [Mass ratio]1.1 {ratio}NormalThe [facility] CampusComment on above:Performed By: #### TSH, ACET, CMP, SALYC, ETH, HSTROPN #### [facility] [address] [place] [address] Dr. Christelle Soares [Catalytic activity/Vol]87 U/JBttogu52-061Tsa [facility] CampusComment on above:Performed By: #### TSH, ACET, CMP, SALYC, ETH, HSTROPN #### [facility] [address] [place] [address] Dr. Christelle Owen [Catalytic activity/Vol]55 U/OJltgyx65-04Mqw [facility] CampusComment on above:Performed By: #### TSH, ACET, CMP, SALYC, ETH, HSTROPN #### [facility] [address] [place] [address] Dr. Christelle Perry gap [Moles/Vol]17.3 mmol/LNormalThe [facility] Comment on above:Performed By: #### TSH, ACET, CMP, SALYC, ETH, HSTROPN #### [facility] [address] [place] [address] Dr. Christelle Weinberg [Catalytic activity/Vol]47 U/LCritically mgcu20-53Wpe [facility] CampusComment on above:Performed By: #### TSH, ACET, CMP, SALYC, ETH, HSTROPN #### [facility] [address] [place] [address] Dr. Christelle NguyneBilirubin [Mass/Vol]0.3 mg/dLNormal0.2-1.0The [facility] Comment on above:Performed By: #### TSH, ACET, CMP, SALYC, ETH, HSTROPN #### [facility] [address] [place] [address] Dr. Christelle NguyenCalcium [Mass/Vol]9.0 mg/dLNormal8.5-10.1The [facility] Comment on above:Performed By: #### TSH, ACET, CMP, SALYC, ETH, HSTROPN #### [facility] [address] [address] [address] Christelle NguyenChloride [Moles/Vol]105 mmol/KNptbex79-131Ina [facility] Comment on above:Performed By: #### TSH, ACET, CMP, SALYC, ETH, HSTROPN #### [facility] [address] [address] [address] Christelle gNuyenCO2 [Moles/Vol]25.3 mmol/AGkaqyq34.0-32.0The [facility] Comment on above:Performed By: #### TSH, ACET, CMP, SALYC, ETH, HSTROPN #### [facility] [address] [place] [address] Dr. Christelle NguyenCreatinine [Mass/Vol]0.61 mg/dLCritically low0.70-1.30The [facility] CampusComment on above:Performed By: #### TSH, ACET, CMP, SALYC, ETH, HSTROPN #### [facility] [address] [place] [address] Dr. Christelle SchwarzGFR-AF DJIBOUTIAN>60Normal>=60The [facility] CampusComment on above:Performed By: #### TSH, ACET, CMP, SALYC, ETH, HSTROPN #### [facility] [address] [place] [address] Dr. Christelle SchwarzGFR-NON AF DJIBOUTIAN>60Normal>=60The [facility] CampusComment on above:Performed By: #### TSH, ACET, CMP, SALYC, ETH, HSTROPN #### [facility] [address] [place] [address] Dr. Christelle NguyenGlobulin (S) [Mass/Vol]3.6 g/dLNormalThe [facility] CampusComment on above:Performed By: #### TSH, ACET, CMP, SALYC, ETH, HSTROPN #### [facility] [address] [place] [address] Dr. Christelle NguyenGlucose [Mass/Vol]97 mg/jSZlonju46-533Qxt [facility] Comment on above:Performed By: #### TSH, ACET, CMP, SALYC, ETH, HSTROPN #### [facility] [address] [place] [address] Dr. Christelle NguyenPotassium [Moles/Vol]4.6 mmol/LNormal3.5-5.1[facility] Comment on above:Performed By: #### TSH, ACET, CMP, SALYC, ETH, HSTROPN #### [facility] [address] [place] [address] Dr. Christelle NguyenProtein [Mass/Vol]7.6 g/dLNormal6.4-8.2The [facility] Comment on above:Performed By: #### TSH, ACET, CMP, SALYC, ETH, HSTROPN #### [facility] [address] [place] [address] Dr. Christelle NguyenSodium [Moles/Vol]143 mmol/SUxtghb045-450Quj [facility] Comment on above:Performed By: #### TSH, ACET, CMP, SALYC, ETH, HSTROPN #### [facility] [address] [place] [address] Dr. Christelle NguyenUrea nitrogen [Mass/Vol]7.0 mg/dLNormal7.0-18.0The [facility] CampusComment on above:Performed By: #### TSH, ACET, CMP, SALYC, ETH, HSTROPN #### [facility] [address] [place] [address] Dr. Christelle NguyenUrea nitrogen/Creatinine [Mass ratio]11.5 mg/mgNormalThe [facility] CampusComment on above:Performed By: #### TSH, ACET, CMP, SALYC, ETH, HSTROPN #### [facility] [address] [place] [address] Dr. Christelle NguyenPROTIMEon 63-75-7407LWC Coag (PPP) [Relative time]{INR}NormalThe [facility] CampusComment on above:Performed By: #### PTT, PT, DDIM #### [facility] [address] [place] [address] Dr. Christelle Hidalgo EXCELA HEALTHE BELOWNormalThCleveland Clinic Children's Hospital for RehabilitationComment on above:Result Comment: DESIRED INR: 2.0 - 3.0 CONDITIONS NOT LISTED BELOW 2.5 - 3.5 FOR PROSTHETIC HEART VALVE REPLACEMENT 2.5 - 3.5 RECURRENT THROMBOSIS Performed By: #### PTT, PT, DDIM #### [facility] [address] [address] [address] Christelle Maciel Coag (PPP) [Time]9.8 sNormal9.0-11.6The [facility] Comment on above:Performed By: #### PTT, PT, DDIM #### [facility] [address] [address] [address] Christelle Barraza 87-03-2415yANE Coag (Bld) [Time]27.8 vUthoys54.3-36.2The [facility] CampusComment on above:Performed By: #### PTT, PT, DDIM #### [facility] [address] [address] [address] Christelle NguyenSALICYLATEon 42-02-8045OEMRWFEASP1.4 mg/dLNormal<=19.9The [facility] CampusComment on above:Performed By: #### TSH, ACET, CMP, SALYC, ETH, HSTROPN #### [facility] [address] [address] [address] Christelle Zendejas, HIGH SENSITIVITYon 79-32-1079HLGDSN2.2 pg/mLNormal 4.0-76.1The [facility] CampusComment on above:Result Comment: CUT-OFF POINTS HAVE BEEN ESTABLISHED BASED ON THE FOURTH UNIVERSAL DEFINITIONS OF MYOCARDIAL INFARCTION. THE UPPER REFERENCE LIMIT (URL) OF TROPONIN, DEFINED THE 99TH PERCENTILE OF cTnI DISTRIBUTION IN A REFERENCE POPULATION, HAS BEEN CONFIRMED THE DECISION THRESHOLD FOR [place] DIAGNOSIS.Performed By: #### TSH, ACET, CMP, SALYC, ETH, HSTROPN ####[facility] [address] [address]Dr. Christelle GoldsteinHotrina 88-90-3581SFO5.069 uIU/mLCritically low0.358-3.740[facility] on above:Performed By: #### TSH, ACET, CMP, SALYC, ETH, HSTROPN ####[facility] [address] [place], [place] [address]ErIshaan NguyenXR CHEST 1 Von 27-03-9105YS CHEST 1 VEXAMINATION: XR CHEST 1 V HISTORY: CHEST PAIN, UNSPECIFIED COMPARISON: No relevant comparison available. TECHNIQUE: AP portable FINDINGS: LUNGS: No significant pulmonary parenchymal abnormalities. VASCULATURE: No increased pulmonary vasculature. PLEURA: No pneumothorax, effusion, or pleural thickening. CARDIAC: No cardiomegaly or cardiac silhouette abnormality. MEDIASTINUM: No visible mass or adenopathy. BONES: No fracture or visible bone lesion. OTHER: Negative. IMPRESSION: No acute disease. Electronically authenticated by: DANA ABRAHAM Date: 2023-01-11 14:[address] [place], [place] [id number] Novel Coronavirus (CoVID-19), CHUN LCon 07-20-2020 SARS-CoV-2, CHUN (COVID-19) LCNot DetectedNot [facility] CenterComselect [facility] on above:Order Comment: [id number] Comment: This nucleic acid amplification test was developed and its performance characteristics determined by [employer]. Nucleic acid amplification tests include PCR and TMA. This test has not been FDA cleared or approved. This test has been authorized by FDA under an Emergency Use Authorization (EUA). This test is only authorized for the duration of time the declaration that circumstances exist justifying the authorization of the emergency use of in vitro diagnostic tests for detection of SARS-CoV-2 virus and/or diagnosis of COVID-19 infection under section 564(b)(1) of the Act, 21 U.S.C. 360bbb-3(b) (1), unless the authorization is terminated or revoked sooner. When diagnostic testing is negative, the possibility of a false negative result should be considered in the context of a patient's recent exposures and the presence of clinical signs and symptoms consistent with COVID-19. An individual without symptoms of COVID-19 and who is not shedding SARS-CoV-2 virus would expect to have a negative (not detected) result in this assay. Performed At: [facility] [place] [address] [place], [place] [id number] Bri Patel [facility] Ph:[phone] By: #### [id number] ####[facility] (DEFAULT)[address] [place], [place] [address]Akynov Summaryon [id number] SummaryCODING DATE: 07/20/2020 FINAL [facility] STATUS: Home PAYOR: Self Pay ADMIT DX: REASON FOR VISIT DX: R11.2 Nausea with vomiting, unspecified R52 Pain, unspecified R05 Cough FINAL DX: PRINCIPAL: R52 Pain, unspecified SECONDARY: R11.2 Nausea with vomiting, unspecified PYMT PROC APC STAT DESCRIPTION DOCTOR NAME DATE NOTE: The code number assigned matches the documented diagnosis and / or procedure in the patient's chart. However, the narrative phrase printed from the coding software may appear abbreviated, or result in slightly different terminology. Coded By: Kaci Ramirez Date Saved: 07/20/2020 08:[address] [facility] HospitalConsent Formson 07-16-2020 Consent [id number] HealthED Clinical Summaryon [id number] [facility] [address] [place] [id number] Clinical Summary PERSON INFORMATION Name: CEHL CHAPARRO Age: 35 Years Sex: MALE : 1985 MRN: Acct#: Visit Reason: UC - Body Aches; UC - Vomiting; UC - Nausea; NAUSEA, BODY ACHES Arrival: 07/15/2020 13:59:13 Discharge: 07/15/2020 15:19:00 LOS: 000 01:20 Check In: 07/15/2020 13:59:13 Checkout: 07/15/2020 15:19:00 Address: [address] [id number] PCP: KORY YAN PROVIDER INFORMATION Provider Role Assigned Unassigned Stan Soria ED PA 07/15/2020 14:02:38 Iva Cardona ED Nurse 07/15/2020 14:23:48 VITALS INFORMATION Vital Sign Triage Latest Temperature Tympanic Temperature Temporal Artery Pulse Rate O2 Sat Respiratory Rate Blood Pressure /70 mmHg /70 mmHg MEDICAL INFORMATION Medications Given: Allergy Information: Percocet 5/325; Imitrex; Flexeril PHYSICIAN DOCUMENTATION DISCHARGE INFORMATION: Discharge Disposition: Home Discharge Location: Home PATIENT EDUCATION INFORMATION Instructions: COVID-19 ? CDC (Prydeinig) (Custom) Follow-Up: With: Address: When: KORY YAN [address] [place] [address] [address] [phone] Business (1) Comments: Zofran is a nausea medication take 1 tab every 8 hours for nausea and/or vomiting Assume you are positive until you have your result Covid Swab will take 2 to 3 days to result If positive for Covid: Stay at home, except to get medical care. Separate from other people and animals at home. Try to stay in a different room away from others inyour home and use a separate bathroom if possible. Restrict contact with pets while you are sick. Call ahead before visiting your doctor or returning to the hospital and notify them that you may have COVID-19. This will help keep you protected with a mask as soon as you enter the facility and help the health care providers stay protected. Wear a face mask when you are around other people. Cover your coughs and sneezes. Clean your hands often. Clean all high-touch surfaces every day, including counters, tabletops, doorknobs, bathroom fixtures, toilets, phones, keyboards, tablets, and bedside tables. Avoid sharing household items, this includes dishes, drinking glasses, cups, eating utensils, towels and bedding with others in your home. Monitor your symptoms. Seek prompt medical attention if your illness is worsening (ie. Difficulty breathing). Wear a facemask to the ER, and notify EMS or ER staff that you are seeking additional care and thatyou possibly have COVID-19. Inform your household contacts that they also should stay home for 14 days, even if they do not feel ill. Find someone else to drop your groceries off and hot die picker your medications. I would recommend that person only leave things on your doorstep and do not enter your home during this time. Discontinue home isolation only after it?s been more than 10 days since you first became ill, you have been fever free for 72 hours AND your cough/shortness of breath has subsided. Stay well hydrated and get plenty of rest. DIAGNOSIS: Body aches; Nausea & vomiting Patient Understands: Yes - Patient/family/caregiver verbalizes understanding of instructions given Comment:Parkview HealthED Patient Summaryon [id number] Patient Summary [facility] ? Urgent Care [address] [place] [address] PATIENT DISCHARGE INSTRUCTIONS Patient Information Name: CHEL CHAPARRO Age: 35 Years Date of : 1985 Reason For Visit: UC - Body Aches; UC - Vomiting; UC - Nausea; NAUSEA, BODY ACHES Arrival Time: 07/15/2020 13:59:13 Primary Care Physician: KORY YAN Attending Physician: Stan Soria Comment: Patient Education With: Address: When: KORY YAN [address] [place], [place] [phone] Business (1) Comments: Zofran is a nausea medication take 1 tab every 8 hours for nausea and/or vomiting Assume you are positive until you have your result Covid Swab will take 2 to 3 days to result If positive for Covid: Stay at home, except to get medical care. Separate from other people and animals at home. Try to stay in a different room away from others inyour home and use a separate bathroom if possible. Restrict contact with pets while you are sick. Call ahead before visiting your doctor or returning to the hospital and notify them that you may have COVID-19. This will help keep you protected with a mask as soon as you enter the facility and help the health care providers stay protected. Wear a face mask when you are around other people. Cover your coughs and sneezes. Clean your hands often. Clean all high-touch surfaces every day, including counters, tabletops, doorknobs, bathroom fixtures, toilets, phones, keyboards, tablets, and bedside tables. Avoid sharing household items, this includes dishes, drinking glasses, cups, eating utensils, towels and bedding with others in your home. Monitor your symptoms. Seek prompt medical attention if your illness is worsening (ie. Difficulty breathing). Wear a facemask to the ER, and notify EMS or ER staff that you are seeking additional care and thatyou possibly have COVID-19. Inform your household contacts that they also should stay home for 14 days, even if they do not feel ill. Find someone else to drop your groceries off and hot die picker your medications. I would recommend that person only leave things on your doorstep and do not enter your home during this time. Discontinue home isolation only after it?s been more than 10 days since you first became ill, you have been fever free for 72 hours AND your cough/shortness of breath has subsided. Stay well hydrated and get plenty of rest. What to do if you are sick with coronavirus disease 2019 (COVID-19) If you are sick with COVID-19 or suspect you are infected with the virus that causes COVID-19, follow the steps below to help prevent the disease from spreading to people in your home and communityStay home except to get medical care You should restrict activities outside your home, except for getting medical care. Do not go to work, school, or public areas. Avoid using public transportation, ride-sharing, or taxis. Separate yourself from other people and animals in your home People: As much as possible, you should stay in a specific room and away from other people in your home. Also, you should use a separate bathroom, if available. Animals: Do not handle pets or other animals while sick. See COVID-19 and Animals for more information. Call ahead before visiting your doctor If you have a medical appointment, call the healthcare provider and tell them that you have or may have COVID-19. This will help the healthcare provider's office take steps to keep other people from getting infected or exposed. Wear a facemask You should wear a facemask when you are around other people (e.g., sharing a room or vehicle) or pets and before you enter a healthcare provider's office. If you are not able to wear a facemask (for example, because it causes trouble breathing), then people who live with you should not stay in the same room with you, or they should wear a facemask if they enter your room. Cover your coughs and sneezes Cover your mouth and nose with a tissue when you cough or sneeze. Throw used tissues in a lined trash can; immediately wash your hands with soap and water for at least 20 seconds or clean your hands with an alcohol-based hand firewall administrator that contains at least 60-95% alcohol covering all surfaces of your hands and rubbing them together until they feel dry. Soap and water should be used preferentially if hands are visibly dirty. Avoid sharing personal household items You should not share dishes, drinking glasses, cups, eating utensils, towels, or bedding with otherpeople or pets in your home. After using these items, they should be washed thoroughly with soap and water. Clean your hands often Wash your hands often with soap and water for at least 20 seconds. If soap and water are not available, clean your hands with an alcohol-based hand firewall administrator that contains at least 60% alcohol, covering all surfaces of your hands and rubbing them together until they feel dry. Soap and water should be used preferentially if hands are visibly dirty. Avoid touching your eyes, nose, and mouth with unwashed hands. Clean all ?high-touch? surfaces every day High touch surfaces include counters, tabletops, doorknobs, bathroom fixtures, toilets, phones, keyboards, tablets, and bedside tables. Also, clean any surfaces that may have blood, stool, or body fluids on them. Use a household cleaning spray or wipe, according to the label instructions. Labels contain instructions for safe and effective use of the cleaning product including precautions you should take when applying the product, such as wearing gloves and making sure you have good ventilation during use of the product. Monitor your symptoms Seek prompt medical attention if your illness is worsening (e.g., difficulty breathing). Before seeking care, call your healthcare provider and tell them that you have, or are being evaluated for, COVID-19. Put on a facemask before you enter the facility. These steps will help the healthcare provider's office to keep other people in the office or waiting room from getting infected or exposed. Ask your healthcare provider to call the local or state health department. Persons who are placed under active monitoring or facilitated self-monitoring should follow instructions provided by their local health department or occupational health professionals, as appropriate. If you have a medical emergency and need to call 911, notify the dispatch personnel that you have, or are being evaluated for COVID-19. If possible, put on a facemask before emergency medical services arrive. Discontinuing home isolation Patients with confirmed COVID-19 should remain under home isolation precautions until the risk of secondary transmission to others is thought to be low. The decision to discontinue home isolation precautions should be made on a [id number] basis, in consultation with healthcare providers and state and local health departments. CS [id number] 01/15/2020 Medication Information: The exam and treatment you received today in the [facility] Emergency Department were for an urgent problem and are not intended as complete care. It is important for you to follow up with a doctor, nurse practitioner, or physician?s placement assistant for ongoing care. If your symptoms become worse or you donot improve as expected and you are unable to reach your usual health care provider, you should return to the Emergency Department, we are available 24 hours a day. For those patients who have received Radiology results, the interpretation of your X-ray as given to you by our Emergency Department physician is only a preliminary report. The Radiologist will review your films and if there is a change in the diagnosis you will be notified by phone. Please make sure you have provided a working phone number so we can reach you if necessary. In the event that you had a lab culture while you were a patient in the Emergency Department, you will be notified by phone if there is a need to change your antibiotic. Please make sure you have provided a working phone number so we can reach you if necessary. [facility] Emergency Department has provided you with a complete list of medications post discharge. Please inform your irrigation specialist/provider of your visit and for further instruction on these medications. Any specific questions regarding your chronic medications and dosages should be discussed with your primary care physician(s) and/or pharmacist. New Medications STEVEN ELK [address], [place] [id number], [phone] ondansetron (ondansetron 4 mg oral tablet, disintegrating) 1 tab(s) Oral Every 8 hours as needed asneeded for nausea/vomiting. Refills: 0. Medications to Continue That Have Not Changed Other Medications levothyroxine 100 Microgram Oral every day. Visit Information Visit Diagnosis: Diagnoses This Visit Body aches (R52) Nausea & vomiting (R11.2) UC - Body Aches ([id number]) UC - Nausea ([id number]) UC - Vomiting ([id number]) If you received any narcotics, sedation, or any other medication that causes drowsiness for the next 24 hours, unless otherwise directed: ? Do not drive a car. ? Do not operate machinery such as power tools, lawn mowers, drills, sewing machines, or stoves ? Avoid alcoholic beverages and drugs for allergies, nerves, or sleep ? Do not make important personal or business decisions or sign any legal documents Reason for Visit: since Sunday, vomiting, diarrhea, body aches, cough with sometimes yellow phlegm Allergies: Substance Reaction Symptoms Type Comments Flexeril Drug Imitrex Drug Percocet 5/325 Drug Vital Signs: Vitals and Measurements this Visit (last charted value for your 07/15/2020 visit) Vital Signs This Visit Temperature Temporal: 37.2 DegC Peripheral Pulse Rate: 80 bpm Respiratory Rate: 18 br/min Systolic Blood Pressure: 136 mmHg Diastolic Blood Pressure: 70 mmHg Problems List: Problem Onset Comments No Problems found Major Tests and Procedures: The following procedures and tests were performed during your ED visit. Laboratory 2019 Novel Coronavirus (CoVID-19), [facility] (SEND OUT) Nasopharyngeal Swab, 07/15/20 14:57:00 EDT, Stat collect, Stop date 07/15/20 14:59:00 EDT, Nurse collect, No, Yes, No, No, No, Not Radiology Cardiology Viruses or Bacteria What?s got you sick? Antibiotics only treat bacterial infections. Viral illnesses cannot be treated with antibiotics. When an antibiotic is not prescribed, ask your healthcare professional for tips on how to relieve symptoms and feel better. Usual Cause Illness Viruses Bacteria Antibiotic Needed Cold/Runny Nose NO Bronchitis/Chest Cold (in otherwise healthy children and adults) NO Whooping Cough Yes Flu NO Strep Throat Yes Sore Throat (except strep) NO Fluid in the middle ear (otitis media with effusion) NO Urinary Tract Infection Yes Antibiotics Aren?t Always the Answer www.cdc.gov/getsmart GET SMART Know When Antibiotics Work U.S. Department of Health and Human Services Centers for Disease Control and Prevention July 2014[facility] Patient Handouton [phone] HandoutPatient Education Materials Follows: What to do if you are sick with coronavirus disease 2019 (COVID-19) If you are sick with COVID-19 or suspect you are infected with the virus that causes COVID-19, follow the steps below to help prevent the disease from spreading to people in your home and communityStay home except to get medical care You should restrict activities outside your home, except for getting medical care. Do not go to work, school, or public areas. Avoid using public transportation, ride-sharing, or taxis. Separate yourself from other people and animals in your home People: As much as possible, you should stay in a specific room and away from other people in your home. Also, you should use a separate bathroom, if available. Animals: Do not handle pets or other animals while sick. See COVID-19 and Animals for more information. Call ahead before visiting your doctor If you have a medical appointment, call the healthcare provider and tell them that you have or may have COVID-19. This will help the healthcare provider's office take steps to keep other people from getting infected or exposed. Wear a facemask You should wear a facemask when you are around other people (e.g., sharing a room or vehicle) or pets and before you enter a healthcare provider's office. If you are not able to wear a facemask (for example, because it causes trouble breathing), then people who live with you should not stay in the same room with you, or they should wear a facemask if they enter your room. Cover your coughs and sneezes Cover your mouth and nose with a tissue when you cough or sneeze. Throw used tissues in a lined trash can; immediately wash your hands with soap and water for at least 20 seconds or clean your hands with an alcohol-based hand firewall administrator that contains at least 60-95% alcohol covering all surfaces of your hands and rubbing them together until they feel dry. Soap and water should be used preferentially if hands are visibly dirty. Avoid sharing personal household items You should not share dishes, drinking glasses, cups, eating utensils, towels, or bedding with otherpeople or pets in your home. After using these items, they should be washed thoroughly with soap and water. Clean your hands often Wash your hands often with soap and water for at least 20 seconds. If soap and water are not available, clean your hands with an alcohol-based hand firewall administrator that contains at least 60% alcohol, covering all surfaces of your hands and rubbing them together until they feel dry. Soap and water should be used preferentially if hands are visibly dirty. Avoid touching your eyes, nose, and mouth with unwashed hands. Clean all ?high-touch? surfaces every day High touch surfaces include counters, tabletops, doorknobs, bathroom fixtures, toilets, phones, keyboards, tablets, and bedside tables. Also, clean any surfaces that may have blood, stool, or body fluids on them. Use a household cleaning spray or wipe, according to the label instructions. Labels contain instructions for safe and effective use of the cleaning product including precautions you should take when applying the product, such as wearing gloves and making sure you have good ventilation during use of the product. Monitor your symptoms Seek prompt medical attention if your illness is worsening (e.g., difficulty breathing). Before seeking care, call your healthcare provider and tell them that you have, or are being evaluated for, COVID-19. Put on a facemask before you enter the facility. These steps will help the healthcare provider's office to keep other people in the office or waiting room from getting infected or exposed. Ask your healthcare provider to call the local or state health department. Persons who are placed under active monitoring or facilitated self-monitoring should follow instructions provided by their local health department or occupational health professionals, as appropriate. If you have a medical emergency and need to call 911, notify the dispatch personnel that you have, or are being evaluated for COVID-19. If possible, put on a facemask before emergency medical services arrive. Discontinuing home isolation Patients with confirmed COVID-19 should remain under home isolation precautions until the risk of secondary transmission to others is thought to be low. The decision to discontinue home isolation precautions should be made on a jiwg-[id number]-[id number] basis, in consultation with healthcare providers and state and local health departments. CS [id number] 01/15/2020[facility] Provider[facility] [id number] Care Note- ProviderPatient: CHEL CHAPARRO Age: 35 years Sex: MALE : 1985 Associated Diagnoses: Body aches; Nausea & vomiting Author: Stan Soria Basic Information Time seen: Date & time 07/15/2020 14:46:00. History source: Patient. History limitation: None. History of Present Illness Tele Health COVID-19 Screening Exposure Risk Have you traveled recently in the last 14 days? no If so where was your destination of travel? no Has a family member traveled in the last 14 days? no If yes where was your family members destination of travel? no Have you had any contact with anyone in the last 14 days with a CONFIRMED COVID- 19 case? no If yes where was the location of exposure? no Do you currently have any of the below preexisting conditions? >60 y/o: no Diabetes: no Heart Disease: no High Blood Pressure: yes, not on rx for this currently Chronic Lung Disease: no Chronic Liver Disease: no Immunocompromised: no Patient Stated Symptoms Onset/duration of symptoms: Sunday Cough: yes, attributes to smoking Shortness of Breath: a little Fever>100.4: subjective, not taken Vomiting or diarrhea: yes Sore Throat: no Loss of taste or smell: no Fatigue: yes Other Viral Symptoms: no ROS Constitutional: Fevers subjective, chills no, malaise yes, myalgias yes Cardiac: Chest pain no, SOB no chest pain with exertion no Respiratory: Cough yes Productive yellow phlegm, respiratory distress no, hemoptysis no TREE CHIPPER: headache minimal MULLINS yesterday resolved when he ate, change of mentation no ROS is otherwise negative, except that noted above. PE Physical exam performed by nursing. GENERAL: Alert, oriented, non toxic HEART: Regular rate, rhythm. No gallop, no murmur. LUNGS: Clear to auscultation bilaterally. Resp regular, non labored. SKIN: warm and dry. MENTATION: Normal. Explained home care and hygiene positive versus negative for COVID. Explained self quarantine. Pt is a 35yoM complaint of vomiting, diarrhea, body aches. Sunday s/s. Has been taking his medicine and drinking sprite, without issue. Patient with nausea today. Patient no acute distress at this time. Patient with allergy to Flexeril Imitrex and Percocet. Quarantine I reminded the patient to self isolate until at least 14 days from the start of the illness, LONG their temp has been normal for 72 hours and the cough and SOB has subsided. They voiced their understanding. There is a concern for COVID infection in this individual, but there no indication for hospitalization at this time. Testing was initiated per current recommendations and guidelines from the [facility]. Push fluids to stay hydrated. Use Tylenol as needed for fevers or suspected fevers. Dehydration can happen more quickly with a fever and so have Tylenol on hand to use as needed. There is some indication that Tylenol may be better than Ibuprofen for treating fevers and body aches in a COVID-19 patient than Ibuprofen. Seek medical care with increasing shortness of breath. Make sure you notify the provider or hospital that you are coming and that you possibly have a COVID infection prior to your arrival. Home care and self quarantine discussed at length. Patient is notified to please stay at home, except to get medical care. Under no circumstance should this patient go to work, school or public areas. -They should separate themselves from other people and animals in their home. Try to stay in a different room away from others in your home and use a separate bathroom if possible. Restrict contact with pets while you are sick. -Call ahead before visiting your doctor or returning to the hospital and notify them that you may have COVID-19. This will help keep you protected with a mask as soon as you enter the facility and help the health care providers stay protected. -Wear a face mask when you are around other people. -Cover your coughs and sneezes. -Clean your hands often. -Clean all high-touch surfaces every day, including counters, tabletops, doorknobs, bathroom fixtures, toilets, phones, keyboards, tablets, and bedside tables. -Avoid sharing household items, this includes dishes, drinking glasses, cups, eating utensils, towels and bedding with others in your home. -Monitor your symptoms. Seek prompt medical attention if your illness is worsening (ie. Difficulty breathing). Wear a facemask to the ER, and notify EMS or ER staff that you are seeking additional care and that you possibly have COVID-19. -Inform your household contacts that they also should stay home for 14 days, even if they do not feel ill. Find someone else to drop your groceries off and hot die picker your medications. I would recommendthat person only leave things on your doorstep and do not enter your home during this time. Discontinue home isolation only after it?s been more than 7 days since you first became ill, you have been fever free for 72 hours AND your cough/shortness of breath has subsided. I informed the patient that the use of Telemedicine for today?s visit may require the use of an application that is not secure to transmit protected health information and the application may presenta privacy risk to the patients protected health information. I also explained that the audio and visual tools may not be adequate for the care needed and an in person visit may be required. In the interest of providing care to the patient during this public health emergency, I proceeded with the telemedicine visit. Today?s visit was performed via telemedicine using synchronous audio and visual. I spent 15 minutes in face to face patient care. Health Status Allergies: Allergic Reactions (Selected) Severity Not Documented Flexeril- No reactions were documented. Imitrex- No reactions were documented. Percocet 5/325- No reactions were documented.. Medications: (Selected) Prescriptions Prescribed Medrol Dosepak 4 mg oral tablet: 1 packet(s), PO, Once, as directed on package labeling, 21 tab(s),0 Refill(s) sulfaSALAzine 500 mg oral delayed release tablet: 500 mg = 1 tab(s), PO, QID, 120 tab(s), 0 Refill(s) Documented Medications Documented levothyroxine: Daily, 0 Refill(s). Past Medical/ Family/ Social History Medical history: No active or resolved past medical history items have been selected or recorded.. Surgical history: No active procedure history items have been selected or recorded.. Family history: No family history items have been selected or recorded.. Social history: Social & Psychosocial Habits Substance Abuse 08/20/2019 Substance use: Never Tobacco 08/26/2019 Smoking tobacco use: 10 or more cigarettes (1/ Electronic Cigarette/Vaping 08/20/2019 Electronic Cigarette Use: Never . Problem list: No qualifying data available . Physical Examination Vital Signs Vital Signs 07/15/2020 14:10 EDT Temperature Temporal 37.2 DegC Peripheral Pulse Rate 80 bpm Respiratory Rate 18 br/min Systolic Blood Pressure 136 mmHg Diastolic Blood Pressure 70 mmHg . Medical Decision Making Orders Launch Orders Laboratory: 2019 Novel Coronavirus (CoVID-19), [facility] (SEND OUT) (Order): Nasopharyngeal Swab, 07/15/2020 14:57 EDT, Stat collect, Nurse collect, No, Yes, No, No, No, Not Pharmacy: ondansetron 4 mg oral tablet, disintegrating (Prescribe): 4 mg = 1 tab(s), PO, q8hr, PRN: as neededfor nausea/vomiting, 15 tab(s), 0 Refill(s). Impression and Plan Diagnosis Body aches ([id number] R52, Discharge, Medical) Nausea & vomiting (NQV20-SP R11.2, Discharge, Medical) Plan Prescriptions: Launch prescriptions Miscellaneous Request: Excuse from Work/School (Order): 07/15/2020 15:00 EDT. Patient was given the following educational materials: COVID-19 ? CDC ([place]inig) (Custom). Follow up with: KORY Alonso is a nausea medication take 1 tab every 8 hours for nausea and/orvomiting Assume you are positive until you have your result Covid Swab will take 2 to 3 days to result If positive for Covid: Stay at home, except to get medical care. Separate from other people and animals at home. Try to stay in a different room away from others inyour home and use a separate bathroom if possible. Restrict contact with pets while you are sick. Call ahead before visiting your doctor or returning to the hospital and notify them that you may have COVID-19. This will help keep you protected with a mask as soon as you enter the facility and help the health care providers stay protected. Wear a face mask when you are around other people. Cover your coughs and sneezes. Clean your hands often. Clean all high-touch surfaces every day, including counters, tabletops, doorknobs, bathroom fixtures, toilets, phones, keyboards, tablets, and bedside tables. Avoid sharing household items, this includes dishes, drinking glasses, cups, eating utensils, towels and bedding with others in your home. Monitor your symptoms. Seek prompt medical attention if your illness is worsening (ie. Difficulty breathing). Wear a facemask to the ER, and notify EMS or ER staff that you are seeking additional care and thatyou possibly have COVID-19. Inform your household contacts that they also should stay home for 14 days, even if they do not feel ill. Find someone else to drop your groceries off and hot die picker your medications. I would recommend that person only leave things on your doorstep and do not enter your home during this time. Discontinue home isolation only after it?s been more than 10 days since you first became ill, you have been fever free for 72 hours AND your cough/shortness of breath has subsided. Stay well hydrated and get plenty of rest. . Counseled: Patient, Regarding diagnosis, Regarding diagnostic results, Regarding treatment plan, Regarding prescription, Patient indicated understanding of instructions.[id number] [address] [place], [place] [address] PATIENT DISCHARGE INSTRUCTIONS Patient Information Name: CHEL CHAPARRO Age: 35 Years Date of : 1985 Reason For Visit: UC - Body Aches; UC - Vomiting; UC - Nausea; NAUSEA, BODY ACHES Arrival Time: 07/15/2020 13:59:13 Primary Care Physician: KORY YAN Attending Physician: Stan Soria Comment: Visit Diagnosis: Diagnoses This Visit Body aches (R52) Nausea & vomiting (R11.2) UC - Body Aches ([id number]) UC - Nausea ([id number]) UC - Vomiting ([id number]) If you received any narcotics, sedation, or any other medication that causes drowsiness for the next 24 hours, unless otherwise directed: ? Do not drive a car. ? Do not operate machinery such as power tools, lawn mowers, drills, sewing machines, or stoves ? Avoid alcoholic beverages and drugs for allergies, nerves, or sleep ? Do not make important personal or business decisions or sign any legal documents With: Address: When: KORY YAN [address] [place] [address] [place] [phone] Business (1) Comments: Zofran is a nausea medication take 1 tab every 8 hours for nausea and/or vomiting Assume you are positive until you have your result Covid Swab will take 2 to 3 days to result If positive for Covid: Stay at home, except to get medical care. Separate from other people and animals at home. Try to stay in a different room away from others inyour home and use a separate bathroom if possible. Restrict contact with pets while you are sick. Call ahead before visiting your doctor or returning to the hospital and notify them that you may have COVID-19. This will help keep you protected with a mask as soon as you enter the facility and help the health care providers stay protected. Wear a face mask when you are around other people. Cover your coughs and sneezes. Clean your hands often. Clean all high-touch surfaces every day, including counters, tabletops, doorknobs, bathroom fixtures, toilets, phones, keyboards, tablets, and bedside tables. Avoid sharing household items, this includes dishes, drinking glasses, cups, eating utensils, towels and bedding with others in your home. Monitor your symptoms. Seek prompt medical attention if your illness is worsening (ie. Difficulty breathing). Wear a facemask to the ER, and notify EMS or ER staff that you are seeking additional care and thatyou possibly have COVID-19. Inform your household contacts that they also should stay home for 14 days, even if they do not feel ill. Find someone else to drop your groceries off and hot die picker your medications. I would recommend that person only leave things on your doorstep and do not enter your home during this time. Discontinue home isolation only after it?s been more than 10 days since you first became ill, you have been fever free for 72 hours AND your cough/shortness of breath has subsided. Stay well hydrated and get plenty of rest. Medication Information: The exam and treatment you received today in the [facility] were for an urgent problem and are not intended as complete care. It is important for you to follow up with a doctor, nurse practitioner, or physician?s placement assistant for ongoing care. If your symptoms become worse or you do not improve as expected and you are unable to reach your usual health care provider, you should return to the Emergency Department, we are available 24 hours a day. For those patients who have received Radiology results, the interpretation of your X-ray as given to you by our Urgent Care physician is only a preliminary report. The Radiologist will review your films and if there is a change in the diagnosis you will be notified by phone. Please make sure you have provided a working phone number so we can reach you if necessary. In the event that you had a lab culture while you were a patient in the Urgent Care, you will be notified by phone if there is a need to change your antibiotic. Please make sure you have provided a working phone number so we can reach you if necessary. [facility] has provided you with a complete list of medications post discharge. Please inform your irrigation specialist/provider of your visit and for further instruction on these medications. Any specific questions regarding your chronic medications and dosages should be discussed with your primary care physician(s) and/or pharmacist. [facility] [address], [place] [id number], [phone] ondansetron (ondansetron 4 mg oral tablet, disintegrating) 1 tab(s) Oral Every 8 hours as needed asneeded for nausea/vomiting. Refills: 0. Medications to Continue That Have Not Changed Other Medications levothyroxine 100 Microgram Oral every day. Visit Information Allergies: Substance Reaction Symptoms Type Comments Flexeril Drug Imitrex Drug Percocet 5/325 Drug Vital Signs: Vitals and Measurements this Visit (last charted value for your 07/15/2020 visit) Vital Signs This Visit Temperature Temporal: 37.2 DegC Peripheral Pulse Rate: 80 bpm Respiratory Rate: 18 br/min Systolic Blood Pressure: 136 mmHg Diastolic Blood Pressure: 70 mmHg Problems List: Problem Onset Comments No Problems found Patient Education What to do if you are sick with coronavirus disease 2019 (COVID-19) If you are sick with COVID-19 or suspect you are infected with the virus that causes COVID-19, follow the steps below to help prevent the disease from spreading to people in your home and communityStay home except to get medical care You should restrict activities outside your home, except for getting medical care. Do not go to work, school, or public areas. Avoid using public transportation, ride-sharing, or taxis. Separate yourself from other people and animals in your home People: As much as possible, you should stay in a specific room and away from other people in your home. Also, you should use a separate bathroom, if available. Animals: Do not handle pets or other animals while sick. See COVID-19 and Animals for more information. Call ahead before visiting your doctor If you have a medical appointment, call the healthcare provider and tell them that you have or may have COVID-19. This will help the healthcare provider's office take steps to keep other people from getting infected or exposed. Wear a facemask You should wear a facemask when you are around other people (e.g., sharing a room or vehicle) or pets and before you enter a healthcare provider's office. If you are not able to wear a facemask (for example, because it causes trouble breathing), then people who live with you should not stay in the same room with you, or they should wear a facemask if they enter your room. Cover your coughs and sneezes Cover your mouth and nose with a tissue when you cough or sneeze. Throw used tissues in a lined trash can; immediately wash your hands with soap and water for at least 20 seconds or clean your hands with an alcohol-based hand firewall administrator that contains at least 60-95% alcohol covering all surfaces of your hands and rubbing them together until they feel dry. Soap and water should be used preferentially if hands are visibly dirty. Avoid sharing personal household items You should not share dishes, drinking glasses, cups, eating utensils, towels, or bedding with otherpeople or pets in your home. After using these items, they should be washed thoroughly with soap and water. Clean your hands often Wash your hands often with soap and water for at least 20 seconds. If soap and water are not available, clean your hands with an alcohol-based hand firewall administrator that contains at least 60% alcohol, covering all surfaces of your hands and rubbing them together until they feel dry. Soap and water should be used preferentially if hands are visibly dirty. Avoid touching your eyes, nose, and mouth with unwashed hands. Clean all ?high-touch? surfaces every day High touch surfaces include counters, tabletops, doorknobs, bathroom fixtures, toilets, phones, keyboards, tablets, and bedside tables. Also, clean any surfaces that may have blood, stool, or body fluids on them. Use a household cleaning spray or wipe, according to the label instructions. Labels contain instructions for safe and effective use of the cleaning product including precautions you should take when applying the product, such as wearing gloves and making sure you have good ventilation during use of the product. Monitor your symptoms Seek prompt medical attention if your illness is worsening (e.g., difficulty breathing). Before seeking care, call your healthcare provider and tell them that you have, or are being evaluated for, COVID-19. Put on a facemask before you enter the facility. These steps will help the healthcare provider's office to keep other people in the office or waiting room from getting infected or exposed. Ask your healthcare provider to call the local or state health department. Persons who are placed under active monitoring or facilitated self-monitoring should follow instructions provided by their local health department or occupational health professionals, as appropriate. If you have a medical emergency and need to call 911, notify the dispatch personnel that you have, or are being evaluated for COVID-19. If possible, put on a facemask before emergency medical services arrive. Discontinuing home isolation Patients with confirmed COVID-19 should remain under home isolation precautions until the risk of secondary transmission to others is thought to be low. The decision to discontinue home isolation precautions should be made on a tnxz-df-olrx basis, in consultation with healthcare providers and [facility] and local health departments. CS 532653-A 01/15/2020 Viruses or Bacteria What?s got you sick? Antibiotics only treat bacterial infections. Viral illnesses cannot be treated with antibiotics. When an antibiotic is not prescribed, ask your healthcare professional for tips on how to relieve symptoms and feel better. Usual Cause Illness Viruses Bacteria Antibiotic Needed Cold/Runny Nose NO Bronchitis/Chest Cold (in otherwise healthy children and adults) NO Whooping Cough Yes Flu NO Strep Throat Yes Sore Throat (except strep) NO Fluid in the middle ear (otitis media with effusion) NO Urinary Tract Infection Yes Antibiotics Aren?t Always the Answer www.cdc.gov/getsmart GET SMART Know When Antibiotics Work U.S. Department of Health and Human Services Centers for Disease Control and Prevention July 2014[facility] Release of Informationon [id number] of Information [id number]#1.00OTGTIFFParkview Health Coding Summaryon [id number] SummaryCODING DATE: 12/23/2019 [facility] STATUS: Home PAYOR: Self Pay ADMIT DX: REASON FOR VISIT DX: R10.9 Unspecified abdominal pain FINAL DX: PRINCIPAL: K52.9 Noninfective gastroenteritis and colitis, unspecified SECONDARY: R10.33 Periumbilical pain Z83.79 Family history of other diseases of the digestive system PYMT PROC APC STAT DESCRIPTION DOCTOR NAME DATE NOTE: The code number assigned matches the documented diagnosis and / or procedure in the patient's chart. However, the narrative phrase printed from the coding software may appear abbreviated, or result in slightly different terminology. Coded By: Fredrick Cooper' Date Saved: 12/23/2019 10:[address] [facility] HospitalCoding SummaryCODING DATE: 12/23/2019 [facility] STATUS: Home PAYOR: Self Pay APC DESCRIPTION 5523 Level 3 Imaging without Contrast ADMIT DX: REASON FOR VISIT DX: R10.9 Unspecified abdominal pain FINAL DX: PRINCIPAL: K52.9 Noninfective gastroenteritis and colitis, unspecified SECONDARY: R10.33 Periumbilical pain Z83.79 Family history of other diseases of the digestive system PYMT PROC APC STAT DESCRIPTION DOCTOR NAME DATE NOTE: The code number assigned matches the documented diagnosis and / or procedure in the patient's chart. However, the narrative phrase printed from the coding software may appear abbreviated, or result in slightly different terminology. Coded By: Hal Cooper Date Saved: 12/23/2019 10:[address] [facility].Auto Diff 1on 12-20-2019 [place] %5 %Normal1-12[facility] HospitalComment on above:Performed By: #### [id number], [id number], 9583851889, 8395718436, 3311228, 5175827, 15854601, 3247911418, 3863712 ####[facility] (DEFAULT)[address] [place] [address] 26933Wnrc Abs#0.0 d42Sjxspv5.0-0.2[facility] HospitalComment on above: Performed By: #### [id number], [id number], 4988499578, 5399939379, 6192896, 8084486, 97359814, 5929014362, 8070126 ####[facility] (DEFAULT)[address] [place] [address] 10621Svijaafxq/100 WBC (Bld)0.2 %Normal0.2-2.0[facility] HospitalComment on above:Performed By: #### [id number], 6968618335, 7823639438, 9108670942, 6996928, 4180777, 89173656, 2339555852, 9600525 ####[facility] (DEFAULT)[address] [place] [address] 34648Imk Abs#0.2 o96Yaecmx 0.0-0.4[facility] HospitalComment on above:Performed By: #### [id number], [id number], 0478721592, 9282576888, 0842563, 5146193, 14343519, 6074884122, 7492981 ####[facility] (DEFAULT)[address] [place] [address] 46493 Eosinophils/100 WBC (Bld)0.6 %Low0.9-4.0[facility] HospitalComment on above: Performed By: #### [id number], 6033368757, 3185569057, 7490432609, 1797243, 6577406, 28229391, 1840307006, 9459830 ####[facility] (DEFAULT)[address] [place] [address] 50157Rycophrvmdb (Bld) [#/Vol]3.0 q89Edkz8.3-2.9[facility] HospitalComment on above:Performed By: #### [id number], 2655824971, 8222101842, 3456756954, 5710040, 7980344, 53611868, 5816745836, 0222851 ####[facility] (DEFAULT)[address] [place] [address] 05167Gzikembfzcg/100 WBC (Bld)11 %Amg32-72Qfhetppq HospitalComment on above:Performed By: #### [id number], 1279802726, 2449658845, 1685577155, 9516906, 6934005, 95534806, 4644737358, 3054198 ####[facility] (DEFAULT)[address] [place] [address] 37516Vuth Abs#1.3 j45Vwxa1.0-0.8[facility] HospitalComment on above: Performed By: #### [id number], 8979287693, 7634234846, 0706144648, 0510907, 7050794, 52377469, 9484823231, 3726701 ####[facility] (DEFAULT)[address] [place] [address] 38562Vktj Abs#22.1 v45Pfcy3.5-9.2[facility] Comment on above:Performed By: #### [id number], 0573148665, 7508168506, 0672407603, 4011759, 9728651, 65740206, 6859320105, 2368490 ####[facility] (DEFAULT)[address] [place] [address] 31877Zjlfgwrefpx/100 WBC (Bld)83 %Fmjnwg87-85Whptzetc HospitalComment on above:Performed By: #### [id number], 4055201186, 7033583663, 6825687075, 4395080, 4014713, 15008111, 8043259998, 3881175 ####[facility] (DEFAULT)[address] [place] [address] 94114KFE w/ Auto Diffon 67-02-0676Flewgvzhgoy distribution width (RBC) [Ratio]13.8 %Gnuocg08.5-15.0[facility] HospitalComment on above:Performed By: #### [id number], 3448195659, 6745927280, 4515816529, 5450814, 2187520, 87676907, 2219217083, 3675282 ####[facility] (DEFAULT)[address] [place] [address] 75352Pgtraepcpy (Bld) [Volume fraction]44.8 %Normal 34.8-51.9[facility] HospitalComment on above:Performed By: #### 4591235206, 1191729705, 5941218289, 6400213265, 4324536, 2635375, 47066051, 3131596066, 8526332 ####[facility] (DEFAULT)[address] [place] [address] 43782 Hemoglobin (Bld) [Mass/Vol]15.1 g/oIJstwua49.8-17.7[facility] HospitalComment on above:Performed By: #### 2489572795, 2363033675, 7218008906, 3281931921, 7308578, 1962840, 39671577, 1398028536, 5451014 ####[facility] (DEFAULT)[address] [place] [address] 96915Tpt Diff?RBC Morph OnlyNormal [facility] HospitalComment on above:Performed By: #### [id number], 2541901027, 4751808220, 2937167828, 4545873, 1200909, 88673656, 8987392003, 3845440 ####[facility] (DEFAULT)[address] [place] [address] 01155KTM (RBC) [Entitic mass]31 nkCzpoja27-20Bdqwdbfz HospitalComment on above:Performed By: #### 4661275151, 6631962777, 4182273899, 1041937506, 9920346, 8659144, 64280359, 3957823552, 6106819 ####[facility] (DEFAULT)[address] [place] [address] 78320GLBW (RBC) [Mass/Vol]34 g/sRAeccil24-66Owfnmksa HospitalComment on above:Performed By: #### [id number], 4064915215, 7920900543, 0556932292, 3863192, 5959049, 27748234, 5312570805, 9050856 ####[facility] (DEFAULT)[address] [place] [address] 11936EMI (RBC) [Entitic vol]93 fL Ldmzfq82-968Yverbvns HospitalComment on above:Performed By: #### 0864699180, 9511079377, 0941782502, 6533722016, 1733703, 1690633, 73767579, 8569640890, 3222749 ####[facility] (DEFAULT)[address] [place] [address] 97615 Platelet mean volume (Bld) [Entitic vol]10.0 fLNormal6.3-10.2[facility] Comment on above:Performed By: #### [id number], 9144472398, 2086730506, 8749431654, 1041578, 6872699, 54490027, 8497806486, 2097665 ####[facility] (DEFAULT)[address] [place] [address] 49047Yuuryzgpa (Bld) [#/Vol] 349 k44Dzpgpa478-212Nwkupoht HospitalComment on above:Performed By: #### 2402071191, 2978860122, 5153090514, 0040223080, 1002363, 9625854, 60114340, 9602832370, 2894362 ####[facility] (DEFAULT)[address] [place] [address] 44083QHN (Bld) [#/Vol]4.84 m70Kheexi8.70-5.30[facility] Comment on above:Performed By: #### 1333907703, 6143378933, 3686767580, 1287189809, 5394215, 8870478, 62547792, 9058496120, 6305918 ####[facility] (DEFAULT)[address] [place] [address] 39953PII (Bld) [#/Vol]26.6 a00Jmazgvzp HospitalComment on above:Performed By: #### [id number], 4037002940, 2300157906, 8629717355, 2608444, 3528375, 96911853, 9953537006, 0487953 ####[facility] (DEFAULT)[address] [place] [address] 98698FHG Standardon 10-73-0029uZHG Non AA>60[facility] HospitalComment on above:Performed By: #### [id number], 3766756376, 2301538376, 0035208226, 7050674, 7086516, 17633568, 4155676181, 0027402 ####[facility] (DEFAULT)[address] [place] [address] 81599iEOW AA>60[facility] HospitalComment on above:Result Comment: Chronic Kidney disease could be indicated at eGFRs of less than 60 ml/min/1.73m2. Kidney Failure is indicated at less than 15 ml/min/1.73m2 Performed By: #### [id number], 6081612670, 6764405175, 2148450736, 3906298, 6202454, 29828847, 4572353885, 6691650 ####[facility] (DEFAULT)[address] [place] [address] 94507Knumyip [Mass/Vol]3.9 g/dLNormal3.5-5.0[facility] HospitalComment on above:Performed By: #### 5690975602, 7064576638, 3766611910, 5494943879, 4540092, 5664029, 82522123, 2730138888, 8690957 ####[facility] (DEFAULT)[address] [place] [address] 97103Fwbmlsg/Globulin [Mass ratio]1.3 {ratio}Low1.4-2.6[facility] HospitalComment on above:Performed By: #### 7786451735, 8527449418, 1854889409, 1147190096, 9660211, 0397887, 37183567, 8599504601, 0942930 ####[facility] (DEFAULT)[address] [place] [address] 52180Zre Phos66 IU/XGhekpf67-49Crjiwqbp HospitalComment on above: Performed By: #### [id number], 8422369886, 8680652309, 3986370475, 3358268, 6287646, 47620418, 9163971229, 3692110 ####[facility] (DEFAULT)[address] [place] [address] 90192DJY/SGPT40.0 IU/EMrgqxs85.0-63.0[facility] Comment on above:Performed By: #### [id number], 6903616866, 1387680806, 8560667416, 7552759, 9248279, 04102386, 0037325100, 4770104 ####[facility] (DEFAULT)[address] [place] [address] 78379Aksee gap [Moles/Vol] 14.0 mmol/LNormal5.0-19.0[facility] HospitalComment on above:Performed By: #### [id number], 2302893124, 7845761262, 9262039711, 2768058, 1510572, 46402796, 6573497179, 9456553 ####[facility] (DEFAULT)[address] [place] [address] 15354DDC/SGOT38 IU/JRayjxm23-68Tbxmwwyj HospitalComment on above: Performed By: #### 8477105716, 7978661876, 6930339995, 7154017942, 5782133, 0575937, 73942385, 5762994415, 5448222 ####[facility] (DEFAULT)[address] [place] [address] 23138Cewy Total0.3 mg/dLNormal0.3-1.2[facility] Hospital Comment on above:Performed By: #### [id number], 4157616006, 6136569375, 0249297635, 3258912, 4983752, 93374413, 0898698263, 2217527 ####[facility] (DEFAULT)[address] [place] [address] 77390Fkarkwv [Mass/Vol]8.8 mg/dLLow8.9-10.3[facility] HospitalComment on above:Performed By: #### 5513205507, 8652904682, 4878414964, 4650830723, 2025323, 5982900, 24787008, 4415938283, 7918749 ####[facility] (DEFAULT)[address] [place] [address] 67304 Chloride [Moles/Vol]105 mmol/ZRremyi022-258Undgebvm HospitalComment on above: Performed By: #### 8168553071, 3015689672, 3262887039, 8028078412, 8994682, 3754704, 43059407, 6901654907, 3253265 ####[facility] (DEFAULT)[address] [place] [address] 72123RD0 [Moles/Vol]22 mmol/JUgliiv80-33Gvwnbixi HospitalComment on above:Performed By: #### 1709596976, 4924644917, 1504984135, 2802187362, 4872749, 7251851, 37969447, 0971339808, 3455471 ####[facility] (DEFAULT)[address] [place] [address] 22560Updnqmjfra [Mass/Vol] 0.72 mg/dLLow0.90-1.30[facility] HospitalComment on above:Performed By: #### 6847233850, 4472614360, 3249670644, 3693446493, 0406380, 4272790, 16754136, 7158455082, 4391126 ####[facility] (DEFAULT)[address] [place] [address] 58398Bkplnyih (S) [Mass/Vol]3.0 g/dLNormal1.5-4.3[facility] Hospital Comment on above:Performed By: #### 1262897686, 3218727387, 8648646050, 3655332197, 5862032, 1603094, 66495381, 2019355674, 8349392 ####[facility] (DEFAULT)[address] [place] [address] 47506Nfxhles [Mass/Vol]90.0 mg/kKWaugvd51.0-118.0[facility] HospitalComment on above:Performed By: #### 1463286189, 6074169546, 4420923598, 1910145972, 6494573, 2808218, 98406151, 3070033207, 1490197 ####[facility] (DEFAULT)[address] [place] [address] 61977Fywckhcdjo [Osmolality]271 mOsm/LMagrwhite hospital HospitalComment on above:Performed By: #### [id number], 9888060490, 2092117709, 3818738610, 9830106, 1480848, 13890653, 2773926076, 7465871 ####[facility] (DEFAULT)[address] [place] [address] 85992Krytrmdnm [Moles/Vol]3.8 mmol/L Normal3.6-5.1[facility] HospitalComment on above:Performed By: #### [id number], 6544349540, 3506695693, 1069511205, 3815851, 3438837, 29212968, 7927451032, 1228330 ####[facility] (DEFAULT)[address] [place] [address] 69663 Protein [Mass/Vol]6.9 g/dLNormal6.5-8.1[facility] HospitalComment on above: Performed By: #### 2530963248, 2378539815, 0038534292, 0412256076, 7012331, 8960247, 99880867, 1105585010, 9998723 ####[facility] (DEFAULT)[address] [place] [address] 29836Hvqwjk [Moles/Vol]137.0 mmol/ZKtkeez506.0-144.0 [facility] HospitalComment on above:Performed By: #### 8620585509, 1068839118, 5983713882, 4385875672, 2422625, 0795113, 68915648, 0630001251, 9543719 ####[facility] (DEFAULT)[address] [place] [address] 80918Fghs nitrogen [Mass/Vol]7 mg/dLLow8-26[facility] HospitalComment on above:Performed By: #### 1889414111, 2744784270, 9930324401, 6565287966, 5659336, 6797082, 80249853, 2660766480, 6774123 ####[facility] (DEFAULT)[address] [place] [address] 27011Aggd nitrogen/Creatinine [Mass ratio]10.0 mg/mg Normal4.6-16.2MBucyrus Community HospitalComment on above:Performed By: #### [id number], 8828201579, 1279270157, 6916916951, 6372397, 9795683, 57438353, 1876667528, 0732937 ####[facility] (DEFAULT)[address] [place] [address] 96826TQ Abdomen/Pelvis w/o Contraston 87-83-2595TF Abdomen/Pelvis w/o Contrast EXAMINATION: CT Abdomen/Pelvis w/o Contrast HISTORY: RLQ abdominal pain, appendicitis suspected COMPARISON: None. TECHNIQUE: CT examination of the abdomen and pelvis without IV contrast. Coronal and sagittal reformations were performed. Oral contrast given. Dose reduction techniques were achieved by using automated exposure control and/or adjustment of mA and/or kV according to patient size and/or use of iterative reconstruction technique. FINDINGS: The lung bases are clear. Heart size is normal. No pleural or pericardial effusion. The liver demonstrates normal morphology and attenuation without focal hepatic lesion. Gallbladder is present without calcified gallstone or pericholecystic abnormality. The spleen, pancreas and adrenal glands are unremarkable. The kidneys demonstrate a normal unenhanced appearance. No obstructive uropathy or nephroureterolithiasis. There is no free air, bowel obstruction or pneumatosis. The appendix is normal. There is mild rectosigmoid wall thickening, this could be due to underdistention. There is mild small bowel wall thickening of the terminal ileum. Findings are nonspecific and can be seen with enteritis of infectious or inflammatory etiology. Trace amount of likely reactive fluid is present within the pelvis. The bladder is decompressed. The prostate gland is unremarkable. The abdominal aorta is normal. No retroperitoneal or abdominal pelvic lymphadenopathy. No acute or aggressive osseous abnormality identified. IMPRESSION: 1. Mild small bowel wall thickening, favored to represent enteritis. This could be of infectious or inflammatory etiology, specifically, Crohn's. 2. Normal appendix. Final Dictated by: Shayne Aguilar Dictated DT/TM: 12/20/19 1:26 Signed (Electronic Signature): Shayne Aguilar 12/20/19 1:29 pm Technologist: [facility]ERSONReg[facility] CenterED Clinical Summaryon [id number] Clinical [facility] - Emergency Department [address] [place], [place] [id number] ED Clinical Summary PERSON INFORMATION Name: CHEL CHAPARRO Age: 34 Years Sex: MALE : 1985 MRN: Acct#: Visit Reason: Abdominal pain; ABD PAIN Arrival: 12/20/2019 12:38:00 Discharge: 12/20/2019 14:23:00 LOS: 000 01:45 Check In: 12/20/2019 12:38:00 Checkout:12/20/2019 14:23:00 Address: [address] [place] [address] PCP: KORY YAN PROVIDER INFORMATION Provider Role Assigned Unassigned TYRONE ORANTES ED PA 12/20/2019 12:39:47 12/20/2019 12:44:57 Gio RNYohana ED Nurse 12/20/2019 12:46:28 Baldo Beard MD ED Provider 12/20/2019 12:47:31 VITALS INFORMATION Vital Sign Triage Latest Temperature Tympanic Temperature Temporal Artery Pulse Rate 94 bpm 89 bpm O2 Sat 99 % 99 % Respiratory Rate 12 br/min 16 br/min Blood Pressure /130 mmHg /130 mmHg MEDICAL INFORMATION Medications Given: Medication Dose Route HYDROmorphone 1 mg IM predniSONE 60 mg PO Allergy Information: Percocet 5/325; Imitrex; Flexeril PHYSICIAN DOCUMENTATION DISCHARGE INFORMATION: Discharge Disposition: Home Discharge Location: Home PATIENT EDUCATION INFORMATION Instructions: Crohn's Disease Follow-Up: With: Address: When: SHIRLENE NEGRON [address] [place] [address], [facility] [address] [place] [address] Business (1) Within 3 to 5 days With: Address: When: KORY YAN [address] [place] [id number] Business (1) Within 3 to 5 days DIAGNOSIS: Enteritis; Periumbilical abdominal pain Patient Understands: Yes - Patient/family/caregiver verbalizes understanding of instructions given Comment:[facility] HealthED Note - Physicianon [id number] Note - PhysicianPatient: CHEL CHAPARRO Age: 34 years Sex: MALE : 1985 Associated Diagnoses: Enteritis; Periumbilical abdominal pain Author: Baldo Beard MD Basic Information Time seen: Date & time 12/20/2019 12:43:00. Abdominal pain History of Present Illness 84-year-old white male presents to the emergency room via private car complaining of worsening abdominal pain that began 2 days ago. Patient states that the pain is worse with movement. He denies anyfever or chills. He denies any nausea or vomiting. Patient reports that he has noted narrow diameter stools, denies diarrhea. He reports that he is not hungry at the present time. No similar episodesin the past. He reports there is a family history of Crohn's disease Review of Systems Constitutional symptoms: No fever, no chills. Gastrointestinal symptoms: Abdominal pain, moderate, periumbilical, acute, dull, achy, no nausea, no vomiting, no diarrhea. Genitourinary symptoms: No dysuria, no hematuria. Musculoskeletal symptoms: No back pain, Health Status Allergies: Allergic Reactions (Selected) Severity Not Documented Flexeril- No reactions were documented. Imitrex- No reactions were documented. Percocet 5/325- No reactions were documented.. Medications: (Selected) Documented Medications Documented levothyroxine: Daily, 0 Refill(s). Past Medical/ Family/ Social History Medical history: No active or resolved past medical history items have been selected or recorded.. Surgical history: No active procedure history items have been selected or recorded.. Family history: No family history items have been selected or recorded.. Social history: Social & Psychosocial Habits Substance Abuse 08/20/2019 Substance use: Never Tobacco 08/26/2019 Smoking tobacco use: 10 or more cigarettes (1/ Electronic Cigarette/Vaping 08/20/2019 Electronic Cigarette Use: Never . Problem list: No qualifying data available . Physical Examination Vital Signs Vital Signs 12/20/2019 12:46 EST Temperature Oral 37.0 DegC Peripheral Pulse Rate 94 bpm Respiratory Rate 12 br/min LOW Systolic Blood Pressure 189 mmHg HI Diastolic Blood Pressure 130 mmHg HI SpO2 99 % Oxygen Therapy Room air . General: Alert, no acute distress. Skin: Warm, dry, pink. Head: Normocephalic, atraumatic. Neck: Trachea midline. Eye: Normal conjunctiva. Ears, nose, mouth and throat: Oral mucosa moist. Cardiovascular: Regular rate and rhythm, Normal peripheral perfusion. Respiratory: Respirations are non-labored. Gastrointestinal: Soft, Tenderness: Moderate, periumbilical, right lower quadrant, left lower quadrant, Guarding: Voluntary, Rebound: Positive. Back: Normal range of motion. Musculoskeletal: Normal ROM, normal strength. Neurological: Alert and oriented to person, place, time, and situation, normal motor observed, normal speech observed. Psychiatric: Cooperative, appropriate mood & affect. Medical Decision Making Differential Diagnosis: Abdominal pain. Results review: Lab results : Lab Flowsheet 12/20/2019 13:10 EST Sodium Level 137.0 mmol/L Potassium Level 3.8 mmol/L Chloride Level 105 mmol/L CO2 22 mmol/L Anion Gap 14.0 mmol/L Glucose Level 90.0 mg/dL BUN 7 mg/dL LOW Creatinine Level 0.72 mg/dL LOW BUN/Creat Ratio 10.0 eGFR AA >60 mL/min/1.73m2 NA eGFR Non AA >60 mL/min/1.73m2 NA Calcium Level 8.8 mg/dL LOW Bili Total 0.3 mg/dL Alk Phos 66 IU/L AST/SGOT 38 IU/L ALT/SGPT 40.0 IU/L Protein Total 6.9 gm/dL Albumin Level 3.9 gm/dL Globulin 3.0 gm/dL A/G Ratio 1.3 LOW Osmolality 271 mOsm/L NA Troponin-I <0.03 ng/mL WBC 26.6 x103/mcL HI RBC 4.84 x106/mcL Hgb 15.1 gm/dL Hct 44.8 % MCV 93 fL MCH 31 pg MCHC 34 gm/dL RDW 13.8 % Platelet 349 x103/mcL MPV 10.0 fL Auto Neut % 83 % Auto Lymph % 11 % LOW Auto [place] % 5 % Auto Eos % 0.6 % LOW Auto Baso % 0.2 % Neut Abs# 22.1 x103/mcL HI Lymph Abs# 3.0 x103/mcL HI [place] Abs# 1.3 x103/mcL HI Eos Abs# 0.2 x103/mcL Baso Abs# 0.0 x103/mcL RBC Morph Normal Dohle Bodies 1+ Hyperseg 1+ Sed Rate 5 mm/hr Tube Collected Yes Tube Collected Yes Tube Collected Yes 12/20/2019 13:00 EST UA Color Yellow UA Clarity CLEAR UA Glucose NEGATIVE UA Ketones 5 UA Spec Grav >=1.030 UA Blood NEGATIVE UA pH 5.5 UA Protein 30 mg/dL UA Urobilinogen 0.2 mg/dL UA Nitrite NEGATIVE UA Leuk Est NEGATIVE UA Bilirubin SMALL Urine Source Clean Catch Micro? Indicated Culture? No UA WBC None Seen UA RBC None Seen UA Bacteria None . Radiology results: Emergency physician interpretation: Reason For Exam RLQ abdominal pain, appendicitis suspected REPORT EXAMINATION: CT Abdomen/Pelvis w/o Contrast HISTORY: RLQ abdominal pain, appendicitis suspected COMPARISON: None. TECHNIQUE: CT examination of the abdomen and pelvis without IV contrast. Coronal and sagittal reformations were performed. Oral contrast given. Dose reduction techniques were achieved by using automated exposure control and/or adjustment of mA and/or kV according to patient size and/or use of iterative reconstruction technique. FINDINGS: The lung bases are clear. Heart size is normal. No pleural or pericardial effusion. The liver demonstrates normal morphology and attenuation without focal hepatic lesion. Gallbladder is present without calcified gallstone or pericholecystic abnormality. The spleen, pancreas and adrenal glands are unremarkable. The kidneys demonstrate a normal unenhanced appearance. No obstructive uropathy or nephroureterolithiasis. There is no free air, bowel obstruction or pneumatosis. The appendix is normal. There is mild rectosigmoid wall thickening, this could be due to underdistention. There is mild small bowel wall thickening of the terminal ileum. Findings are nonspecific and can be seen with enteritis of infectious or inflammatory etiology. Trace amount of likely reactive fluid is present within the pelvis. The bladder is decompressed. The prostate gland is unremarkable. The abdominal aorta is normal. No retroperitoneal or abdominal pelvic lymphadenopathy. No acute or aggressive osseous abnormality identified. IMPRESSION: 1. Mild small bowel wall thickening, favored to represent enteritis. This could be of infectious or inflammatory etiology, specifically, Crohn's. 2. Normal appendix. Signature Line Final Dictated by: Shayne Aguilar Dictated DT/TM: 12/20/19 1:26 . Reexamination/ Reevaluation Patient's care reviewed with Dr. Clemons, gastroenterology. He suggested that I place the patienton sulfasalazine 4 times daily and a Medrol Dosepak then have the patient follow-up in his office. Impression and Plan Diagnosis Enteritis ([id number] K52.9, Discharge, Medical) Periumbilical abdominal pain ([id number] R10.33, Discharge, Medical) Plan Condition: Improved, Stable. Disposition: Discharged: to home. Prescriptions: Launch prescriptions Pharmacy: Medrol Dosepak 4 mg oral tablet (Prescribe): 1 packet(s), PO, Once, as directed on package labeling, 21 tab(s), 0 Refill(s) sulfaSALAzine 500 mg oral delayed release tablet (Prescribe): 500 mg = 1 tab(s), PO, QID, 120 tab(s), 0 Refill(s). Patient was given the following educational materials: Crohn's Disease, Crohn's Disease, Crohn's Disease. Follow up with: KORY YAN Within 3 to 5 days, KORY YAN Within 3 to 5 days; SHIRLENE NEGRON Within 3 to 5 days. Counseled: Patient, Family, Regarding diagnosis, Regarding diagnostic results, Regarding treatment plan, Regarding prescription, Patient indicated understanding of instructions. [Electronically Signed on: 12/20/2019 15:34 EST] Baldo Beard MD [Verified on: 12/20/2019 15:34 EST] Baldo Beard MDParkview HealthED Note-Nursingon [id number] Note-NursingPT presents to the ED with abdominal pain that started on the left side of his belly button and is now located distal to his belly button. Pt describes the pain as sharp intermittent pain .Pt states a decreased appetite, pain after eating, and some nausea d/t the pain. Pt walked into ED with girlfri end Pt said the pain started and has continued to increase.Normal [facility] Patient Education Noteon [id number] Patient Education Note Education Materials Immunology Crohn's Disease Crohn's disease is a long-lasting (chronic) disease that affects the gastrointestinal (GI) tract. Crohn's disease often causes irritation and inflammation in the small intestine and the beginning of the large intestine, but it can affect any part of the GI tract. Crohn's disease is part of a group o f illnesses that are known as inflammatory bowel disease (IBD). Crohn's disease may start slowly and get worse over time. Symptoms may come and go. They may also go away for months or even years at a time (remission). What are the causes? The exact cause of this condition is not known. It may involve a response that causes your body's disease-fighting (immune) system to attack healthy cells and tissues (autoimmune response). Bacteria,genes, and your environment may also play a role. What increases the risk? The following factors may make you more likely to develop this condition: ? Having a family member who has Crohn's disease, another IBD, or an autoimmune condition. ? Using products that contain nicotine or tobacco, such as cigarettes and e-cigarettes. ? Being in your 20s. ? Having Eastern ancestry. What are the signs or symptoms? The main symptoms of this condition involve your GI tract. These include: ? Diarrhea. ? Pain or cramping in the abdomen. This is commonly felt in the lower right side of the abdomen. ? Frequent watery or bloody stools. ? Constipation. This may mean having: ? Fewer bowel movements in a week than normal. ? Difficulty having a bowel movement. ? Stools that are dry, hard, or larger than normal. ? Rectal bleeding. ? Rectal pain. ? An urgent need to have a bowel movement. ? The feeling that you are not finished having a bowel movement. Other symptoms may include: ? Unexplained weight loss. ? Fatigue. ? Fever. ? Nausea. ? Loss of appetite. ? Joint pain. ? Vision changes. ? Red bumps or sores on the skin. ? Sores inside the mouth. How is this diagnosed? This condition may be diagnosed based on: ? Your symptoms and your medical history. ? A physical exam. ? Tests, which may include: ? Blood tests. ? Stool sample tests. ? Imaging tests, such as X-rays and CT scans. ? Tests to examine the inside of your intestines using a long, flexible tube that has a light and acamera on the end (endoscopy or colonoscopy). ? A procedure to remove tissue samples from inside your bowel for testing (biopsy). You may need to work with a health care provider who specializes in diseases of the digestive tract(respiratory therapy manager). How is this treated? There is no cure for this condition, but treatment can help you manage your symptoms. Crohn's disease affects each person differently. Your treatment may include: ? Resting your bowels. This involves having a period of healing time when your bowels are not passing stools. This may be done by: ? Drinking only clear liquids. These are liquids that you can see through, such as water, black coffee, fruit juice without pulp, broth, gelatin, and ice pops. ? Getting nutrition through an IV for a period of time. ? Medicines. These may be used by themselves or with other treatments (combination therapy). These may include antibiotic medicines. You may be given medicines that help to: ? Reduce inflammation. ? Control your immune system activity. ? Fight infections. ? Relieve cramps and prevent diarrhea. ? Control your pain. ? Surgery. You may need surgery if: ? Medicines and other treatments are not working anymore. ? You develop complications from severe Crohn's disease. ? A section of your intestine becomes so damaged that it needs to be removed. Follow these instructions at home: Medicines ? Take [id number] and prescription medicines only as told by your health care provider. ? If you were prescribed an antibiotic, take it as told by your health care provider. Do not stop taking the antibiotic even if you start to feel better. ? Avoid taking ibuprofen or other NSAID medicines if possible, these can make Crohn's disease worse. Eating and drinking ? Talk with your health care provider or a diet and certified nutritionist (registered dietitian) about what diet is best for you. ? Drink enough fluid to keep your urine pale yellow. ? If you are taking steroids to reduce inflammation, get plenty of calcium in your diet to help keep your bones healthy. You may also consider taking a calcium supplement with vitamin D. ? Keep a food diary to identify foods that make your symptoms better or worse. ? Avoid foods that cause symptoms. ? Follow instructions from your health care provider about eating or drinking restrictions if you have worsening symptoms (flare-up). ? Limit alcohol intake to no more than 1 drink a day for non women and 2 drinks a day for men. One drink equals 12 oz of beer, 5 oz of wine, or 1? oz of hard liquor. General instructions ? Make sure you get all the vaccines that your health care provider recommends, especially pneumonia (pneumococcal) and flu (influenza) vaccines. ? Do not use any products that contain nicotine or tobacco, such as cigarettes and e-cigarettes. Ifyou need help quitting, ask your health care provider. ? Exercise every day, or as often told by your health care provider. ? Keep all follow-up visits as told by your health care provider. This is important. Contact a health care provider if: ? You have diarrhea, cramps in your abdomen, and other GI problems that are present almost all the time. ? Your symptoms do not improve with treatment. ? You continue to lose weight. ? You develop a rash or sores on your skin. ? You develop eye problems. ? You have a fever. ? Your symptoms get worse. ? You develop new symptoms. Get help right away if: ? You have bloody diarrhea. ? You have severe pain in your abdomen. ? You cannot pass stools. Summary ? Crohn's disease affects each person differently. There are multiple treatment options that can help you manage the condition. ? Talk with your health care provider or diet and certified nutritionist (registered dietitian) aboutwhat diet is best for you. ? Make sure you get all the vaccines that your health care provider recommends, especially pneumonia (pneumococcal) and flu (influenza) vaccines. This information is not intended to replace advice given to you by your health care provider. Make sure you discuss any questions you have with your health care provider. Document Released: 08/08/2006 Document Revised: 07/01/2018 Document Reviewed: 07/01/2018 Qt [employer] Interactive Patient Education ? 2019 [employer].[facility]ED Patient Summaryon [id number] [facility] [address] [place] [id number] PATIENT DISCHARGE INSTRUCTIONS Patient Information Name: CHEL CHAPARRO Age: 34 Years Date of : 1985 Reason For Visit: Abdominal pain; ABD PAIN Arrival Time: 12/20/2019 12:38:00 Primary Care Physician: KORY YAN Attending Physician: Baldo Beard MD Comment: Visit Diagnosis: Diagnoses This Visit Abdominal pain ([id number]) Enteritis (K52.9) Periumbilical abdominal pain (R10.33) Prescription Information: If you have been given a prescription for narcotics, seek immediate medical attention if you have any difficulty breathing or any sudden status changes such as confusion andsleepiness. If you or anyone you know is experiencing suicidal thoughts, mental health, alcohol and/or drug addiction problems; contact the [facility] 04/06 Crisis Hotline -Text 2LJHO gf 818559. If you received any narcotics, sedation, or any other medication that causes drowsiness for the next 24 hours, unless otherwise directed: ? Do not drive a car. ? Do not operate machinery such as power tools, lawn mowers, drills, sewing machines, or stoves ? Avoid alcoholic beverages and drugs for allergies, nerves, or sleep ? Do not make important personal or business decisions or sign any legal documents With: Address: When: SHIRLENE NEGRON [address] [place] [address], [address] [place] [address] Business (1) Within 3 to 5 days With: Address: When: KORY YAN [address] [place] [id number] Business (1) Within 3 to 5 days Medication Information: The exam and treatment you received today in the [facility] Emergency Department were for an urgent problem and are not intended as complete care. It is important for you to follow up with a doctor, nurse practitioner, or physician?s placement assistant for ongoing care. If your symptoms become worse or you donot improve as expected and you are unable to reach your usual health care provider, you should return to the Emergency Department, we are available 24 hours a day. For those patients who have received Radiology results, the interpretation of your X-ray as given to you by our Emergency Department physician is only a preliminary report. The Radiologist will review your films and if there is a change in the diagnosis you will be notified by phone. Please make sure you have provided a working phone number so we can reach you if necessary. In the event that you had a lab culture while you were a patient in the Emergency Department, you will be notified by phone if there is a need to change your antibiotic. Please make sure you have provided a working phone number so we can reach you if necessary. [facility] has provided you with a complete list of medications post discharge. Please inform your irrigation specialist/provider of your visit and for further instruction on these medications. Any specific questions regarding your chronic medications and dosages should be discussed with your primary care physician(s) and/or pharmacist. New Medications [facility] [address] [place], [place] [id number], [phone] methylPREDNISolone (Medrol Dosepak 4 mg oral tablet) 1 packet(s) Oral once. as directed on package labeling. Refills: 0. sulfaSALAzine (sulfaSALAzine 500 mg oral delayed release tablet) 1 tab(s) Oral 4 times a day. Refills: 0. Medications to Continue That Have Not Changed Other Medications levothyroxine every day. Visit Information Allergies: Substance Reaction Symptoms Type Comments Flexeril Drug Imitrex Drug Percocet 5/325 Drug Vital Signs: Vitals and Measurements this Visit (last charted value for your 12/20/2019 visit) Vital Signs This Visit Temperature Oral: 37.0 DegC Peripheral Pulse Rate: 89 bpm Respiratory Rate: 16 br/min Systolic Blood Pressure: 187 mmHg Diastolic Blood Pressure: 108 mmHg SpO2: 99 % Oxygen Therapy: Room air Measurements This Visit Height/Length Dosin.000 cm Height/Length Estimated: 178.000 cm Weight Dosin.500 kg Weight Estimated: 97.500 kg Problems List: Problem Onset Comments No Problems found Patient Education Crohn's Disease Crohn's disease is a long-lasting (chronic) disease that affects the gastrointestinal (GI) tract. Crohn's disease often causes irritation and inflammation in the small intestine and the beginning of the large intestine, but it can affect any part of the GI tract. Crohn's disease is part of a group o f illnesses that are known as inflammatory bowel disease (IBD). Crohn's disease may start slowly and get worse over time. Symptoms may come and go. They may also go away for months or even years at a time (remission). What are the causes? The exact cause of this condition is not known. It may involve a response that causes your body's disease-fighting (immune) system to attack healthy cells and tissues (autoimmune response). Bacteria,genes, and your environment may also play a role. What increases the risk? The following factors may make you more likely to develop this condition: ? Having a family member who has Crohn's disease, another IBD, or an autoimmune condition. ? Using products that contain nicotine or tobacco, such as cigarettes and e-cigarettes. ? Being in your 20s. ? Having Eastern ancestry. What are the signs or symptoms? The main symptoms of this condition involve your GI tract. These include: ? Diarrhea. ? Pain or cramping in the abdomen. This is commonly felt in the lower right side of the abdomen. ? Frequent watery or bloody stools. ? Constipation. This may mean having: ? Fewer bowel movements in a week than normal. ? Difficulty having a bowel movement. ? Stools that are dry, hard, or larger than normal. ? Rectal bleeding. ? Rectal pain. ? An urgent need to have a bowel movement. ? The feeling that you are not finished having a bowel movement. Other symptoms may include: ? Unexplained weight loss. ? Fatigue. ? Fever. ? Nausea. ? Loss of appetite. ? Joint pain. ? Vision changes. ? Red bumps or sores on the skin. ? Sores inside the mouth. How is this diagnosed? This condition may be diagnosed based on: ? Your symptoms and your medical history. ? A physical exam. ? Tests, which may include: ? Blood tests. ? Stool sample tests. ? Imaging tests, such as X-rays and CT scans. ? Tests to examine the inside of your intestines using a long, flexible tube that has a light and acamera on the end (endoscopy or colonoscopy). ? A procedure to remove tissue samples from inside your bowel for testing (biopsy). You may need to work with a health care provider who specializes in diseases of the digestive tract(respiratory therapy manager). How is this treated? There is no cure for this condition, but treatment can help you manage your symptoms. Crohn's disease affects each person differently. Your treatment may include: ? Resting your bowels. This involves having a period of healing time when your bowels are not passing stools. This may be done by: ? Drinking only clear liquids. These are liquids that you can see through, such as water, black coffee, fruit juice without pulp, broth, gelatin, and ice pops. ? Getting nutrition through an IV for a period of time. ? Medicines. These may be used by themselves or with other treatments (combination therapy). These may include antibiotic medicines. You may be given medicines that help to: ? Reduce inflammation. ? Control your immune system activity. ? Fight infections. ? Relieve cramps and prevent diarrhea. ? Control your pain. ? Surgery. You may need surgery if: ? Medicines and other treatments are not working anymore. ? You develop complications from severe Crohn's disease. ? A section of your intestine becomes so damaged that it needs to be removed. Follow these instructions at home: Medicines ? Take lzdw-lex-pmtrkkm and prescription medicines only as told by your health care provider. ? If you were prescribed an antibiotic, take it as told by your health care provider. Do not stop taking the antibiotic even if you start to feel better. ? Avoid taking ibuprofen or other NSAID medicines if possible, these can make Crohn's disease worse. Eating and drinking ? Talk with your health care provider or a diet and certified nutritionist (registered dietitian) about what diet is best for you. ? Drink enough fluid to keep your urine pale yellow. ? If you are taking steroids to reduce inflammation, get plenty of calcium in your diet to help keep your bones healthy. You may also consider taking a calcium supplement with vitamin D. ? Keep a food diary to identify foods that make your symptoms better or worse. ? Avoid foods that cause symptoms. ? Follow instructions from your health care provider about eating or drinking restrictions if you have worsening symptoms (flare-up). ? Limit alcohol intake to no more than 1 drink a day for non women and 2 drinks a day for men. One drink equals 12 oz of beer, 5 oz of wine, or 1? oz of hard liquor. General instructions ? Make sure you get all the vaccines that your health care provider recommends, especially pneumonia (pneumococcal) and flu (influenza) vaccines. ? Do not use any products that contain nicotine or tobacco, such as cigarettes and e-cigarettes. Ifyou need help quitting, ask your health care provider. ? Exercise every day, or as often told by your health care provider. ? Keep all follow-up visits as told by your health care provider. This is important. Contact a health care provider if: ? You have diarrhea, cramps in your abdomen, and other GI problems that are present almost all the time. ? Your symptoms do not improve with treatment. ? You continue to lose weight. ? You develop a rash or sores on your skin. ? You develop eye problems. ? You have a fever. ? Your symptoms get worse. ? You develop new symptoms. Get help right away if: ? You have bloody diarrhea. ? You have severe pain in your abdomen. ? You cannot pass stools. Summary ? Crohn's disease affects each person differently. There are multiple treatment options that can help you manage the condition. ? Talk with your health care provider or diet and certified nutritionist (registered dietitian) aboutwhat diet is best for you. ? Make sure you get all the vaccines that your health care provider recommends, especially pneumonia (pneumococcal) and flu (influenza) vaccines. This information is not intended to replace advice given to you by your health care provider. Make sure you discuss any questions you have with your health care provider. Document Released: 08/08/2006 Document Revised: 07/01/2018 Document Reviewed: 07/01/2018 [employer] Interactive Patient Education ? 2019 [employer] Viruses or Bacteria What?s got you sick? Antibiotics only treat bacterial infections. Viral illnesses cannot be treated with antibiotics. When an antibiotic is not prescribed, ask your healthcare professional for tips on how to relieve symptoms and feel better. Usual Cause Illness Viruses Bacteria Antibiotic Needed Cold/Runny Nose NO Bronchitis/Chest Cold (in otherwise healthy children and adults) NO Whooping Cough Yes Flu NO Strep Throat Yes Sore Throat (except strep) NO Fluid in the middle ear (otitis media with effusion) NO Urinary Tract Infection Yes Antibiotics Aren?t Always the Answer www.cdc.gov/getsmart GET SMART Know When Antibiotics Work U.S. Department of Health and Human Services Centers for Disease Control and Prevention July 2014[facility] Extra Redon [id number] Wilson HealthComment on above: Performed By: #### [id number], [id number], [id number], [id number], [id number], [id number], [id number], [id number], [id number] ####[facility] (DEFAULT)[address] [place] [address] 44280Myprmomykrla [id number] Mark (Bld) [Interp] 1+[facility] HealthComment on above:Order Comment: Order added by Mynor. Performed By: #### [id number], [id number], [id number], [id number], [id number], [id number], [id number], [id number], [id number] ####[facility] (DEFAULT)[address] [place] [address] 50614Tldmkknyhl Mark (Bld) [Interp][facility] WestComment on above:Order Comment: Order added by Mynor.Performed By: #### [id number], [id number], [id number], [id number], [id number], [id number], [id number], [id number], [id number] ####[facility] (DEFAULT)[address] [place] [address] 32840Vbm Rateon 26-78-3720Sbr Rate5 mm/hrNormal0-[address] [place] [address] Comment on above:Performed By: #### [id number], [id number], [id number], [id number], [id number], [id number], [id number], [id number], [id number] ####[facility] (DEFAULT)[address] [place] [address] 24509Gohmxurl Ion 12-20-2019 Troponin I.cardiac [Mass/Vol]ng/mLNormal<=0.03[facility] HospitalComment on above: Performed By: #### [id number], [id number], [id number], [id number], [id number], 5049455, [id number], [id number], [id number] ####[facility] (DEFAULT)[address] [place] [address] [id number] Niygr6cx [id number] (U) [#/Vol]None Seen NormalBucyrus Community Hospital HospitalComment on above:Order Comment: Urinalysis Microscopic order added on by [employer] Expert Rules system.Performed By: #### [id number], [id number] ####[facility] (DEFAULT)[address] [place] [address] 15829 UA BacteriaNoneNormProtestant Deaconess Hospital HospitalComment on above:Order Comment: Urinalysis Microscopic order added on by [employer] Expert Rules system.Performed By: #### [id number], [id number] ####[facility] (DEFAULT)[address] [place] [address] 47066QD WBCNone SeenNoOhioHealth Doctors HospitalComment on above:Order Comment: Urinalysis Microscopic order added on by [employer] Expert Rules system. Performed By: #### [id number], [id number] ####[facility] (DEFAULT)[address] [place] [address] 81971OP w Culture if Ind Standardon 12-20-2019 Breakpoint UANormalBucyrus Community Hospital HospitalComment on above:Performed By: #### [id number], [id number] ####[facility] (DEFAULT)[address] [place] [address] 37038Jduss (U)YellowNormProtestant Deaconess Hospital HospitalComment on above: Performed By: #### [id number], [id number] ####[facility] (DEFAULT)[address] [place] [address] 57618Wibauls?NoNormalBucyrus Community Hospital HospitalComment on above:Performed By: #### [id number], [id number] ####[facility] (DEFAULT)[address] [place] [address] 15066Xvofuve (U) [Mass/Vol]NegativeNormalMagrwhite hospital HospitalComment on above:Performed By: #### [id number], [id number] ####[facility] (DEFAULT)[address] [place] [address] 18411Lhmwlmd Ql (U)5Normal [facility] HospitalComment on above:Performed By: #### [id number], [id number] ####[facility] (DEFAULT)[address] [place] [address] 18859Utiqq? IndicatedMagruder HospitalComment on above:Performed By: #### [id number], [id number] ####[facility] (DEFAULT)[address] [place] [address] 18787 UA BilirubinSMALLAbnormalPrgrwhite hospital HospitalComment on above:Performed By: #### [id number], [id number] ####[facility] (DEFAULT)[address] [place] [address] 71648OH BloodNegativeNormalNEGATIVEBucyrus Community Hospital HospitalComment on above:Performed By: #### [id number], [id number] ####[facility] (DEFAULT)[address] [place] [address] 50034JF ClarityCLEARNormalCLEARBucyrus Community Hospital Hospital Comment on above:Performed By: #### [id number], [id number] ####[facility] (DEFAULT)[address] [place] [address] 72504MW Leuk EstNegativeNormal NEGATIVEMagrwhite hospital HospitalComment on above:Performed By: #### [id number], [id number] ####[facility] (DEFAULT)[address] [place] [address] 25310 UA NitriteNegativeNormalNEGATIVEMagrwhite hospital HospitalComment on above:Performed By: #### [id number], [id number] ####[facility] (DEFAULT)[address] [place] [address] 88716JP pH5.4Vuerqh5-0Xqxgxdve HospitalComment on above:Performed By: #### [id number], [id number] ####[facility] (DEFAULT)[address] [place] [address] 65134XD Pkazasg55 mg/dLAbninevehNEGATIVEMercy Health [facility] Comment on above:Performed By: #### [id number], [id number] ####[facility] (DEFAULT)[address] [place], [place] [id number] Spec Grav>=1.030Normal 1.001-1.035[facility] HospitalComment on above:Performed By: #### [id number], [id number] ####[facility] (DEFAULT)[address] [place] [address] 71591 UA Urobilinogen0.2 mg/dLNormal0.2-1.0[facility] HospitalComment on above:Performed By: #### [id number], [id number] ####[facility] (DEFAULT)[address] [place] [address] 43975Epfky SourceClean CatchParkview Health Comment on above:Performed By: #### [id number], [id number] ####[facility] (DEFAULT)[address] [place] [address] 87074Qjsezg Summaryon 08-27-2019 Coding SummaryCODING DATE: 08/27/2019 [facility] STATUS: Home PAYOR: Workers Compensation ADMIT DX: REASON FOR VISIT DX: S61.042D Puncture wound with foreign body of left thumb without damage to nail, subsequent encounter FINAL DX: PRINCIPAL: S61.042D Puncture wound with foreign body of left thumb without damage to nail, subsequent encounter SECONDARY: PYMT PROC APC STAT DESCRIPTION DOCTOR NAME DATE NOTE: The code number assigned matches the documented diagnosis and / or procedure in the patient's chart. However, the narrative phrase printed from the coding software may appear abbreviated, or result in slightly different terminology. Coded By: Kaci Ramirez Date Saved: 08/27/2019 09:[address] [facility] HospitalDischarge Instructionson [id number] Instructions [id number] District HospitalED Clinical Summaryon [id number] [facility] ? [facility] [address] [place] [address] Clinical Summary PERSON INFORMATION Name: CHEL CHAPARRO Age: 34 Years Sex: MALE : 1985 MRN: Acct#: Visit Reason: Medical screening exam; [facility] FOLLOW UP, LEFT THUMB PAIN Arrival: 08/26/2019 16:25:00 Discharge: 08/26/2019 16:47:00 LOS: 000 00:22 Check In: 08/26/2019 16:25:00 Checkout: 08/26/2019 16:47:00 Address: [address] [place] [address] PCP: KORY YAN PROVIDER INFORMATION Provider Role Assigned Unassigned Semaj Ozuna RN ED Nurse 08/26/2019 16:26:02 Tomasz Ashby PA-C ED PA 08/26/2019 16:28:18 VITALS INFORMATION Vital Sign Triage Latest Temperature Tympanic Temperature Temporal Artery Pulse Rate O2 Sat 98 % 98 % Respiratory Rate Blood Pressure /74 mmHg /74 mmHg MEDICAL INFORMATION Medications Given: Allergy Information: Percocet 5/325; Imitrex; Flexeril PHYSICIAN DOCUMENTATION DISCHARGE INFORMATION: Discharge Disposition: Home Discharge Location: Home PATIENT EDUCATION INFORMATION Instructions: Follow-Up: With: Address: When: Return to this practice , only if needed DIAGNOSIS: Foreign body of thumb, left Patient Understands: Yes - Patient/family/caregiver verbalizes understanding of instructions given Comment:[facility] Patient Summaryon [id number] Patient Summary [facility] ? Urgent Care [address] [place] [address] PATIENT DISCHARGE INSTRUCTIONS Patient Information Name: CHEL CHAPARRO Age: 34 Years Date of : 1985 Reason For Visit: Medical screening exam; [facility] FOLLOW UP, LEFT THUMB PAIN Arrival Time: 08/26/2019 16:25:00 Primary Care Physician: KORY YAN Attending Physician: Tomasz Ashby PA-C Comment: Patient Education With: Address: When: Return to this practice , only if needed Medication Information: The exam and treatment you received today in the [facility] Emergency Department were for an urgent problem and are not intended as complete care. It is important for you to follow up with a doctor, nurse practitioner, or physician?s placement assistant for ongoing care. If your symptoms become worse or you donot improve as expected and you are unable to reach your usual health care provider, you should return to the Emergency Department, we are available 24 hours a day. For those patients who have received Radiology results, the interpretation of your X-ray as given to you by our Emergency Department physician is only a preliminary report. The Radiologist will review your films and if there is a change in the diagnosis you will be notified by phone. Please make sure you have provided a working phone number so we can reach you if necessary. In the event that you had a lab culture while you were a patient in the Emergency Department, you will be notified by phone if there is a need to change your antibiotic. Please make sure you have provided a working phone number so we can reach you if necessary. [facility] Emergency Department has provided you with a complete list of medications post discharge. Please inform your irrigation specialist/provider of your visit and for further instruction on these medications. Any specific questions regarding your chronic medications and dosages should be discussed with your primary care physician(s) and/or pharmacist. Medications to Continue That Have Not Changed Other Medications levothyroxine every day. Visit Information Visit Diagnosis: Diagnoses This Visit Foreign body of thumb, left (S60.352A) Medical screening exam ([id number]) If you received any narcotics, sedation, or any other medication that causes drowsiness for the next 24 hours, unless otherwise directed: ? Do not drive a car. ? Do not operate machinery such as power tools, lawn mowers, drills, sewing machines, or stoves ? Avoid alcoholic beverages and drugs for allergies, nerves, or sleep ? Do not make important personal or business decisions or sign any legal documents Reason for Visit: [facility] follow up Allergies: Substance Reaction Symptoms Type Comments Flexeril Drug Imitrex Drug Percocet 5/325 Drug Vital Signs: Vitals and Measurements this Visit (last charted value for your 08/26/2019 visit) Vital Signs This Visit Temperature Temporal: 36.9 DegC Peripheral Pulse Rate: 81 bpm Respiratory Rate: 18 br/min Systolic Blood Pressure: 120 mmHg Diastolic Blood Pressure: 74 mmHg SpO2: 98 % Problems List: Problem Onset Comments No Problems found Major Tests and Procedures: The following procedures and tests were performed during your ED visit. Laboratory Radiology Cardiology Viruses or Bacteria What?s got you sick? Antibiotics only treat bacterial infections. Viral illnesses cannot be treated with antibiotics. When an antibiotic is not prescribed, ask your healthcare professional for tips on how to relieve symptoms and feel better. Usual Cause Illness Viruses Bacteria Antibiotic Needed Cold/Runny Nose NO Bronchitis/Chest Cold (in otherwise healthy children and adults) NO Whooping Cough Yes Flu NO Strep Throat Yes Sore Throat (except strep) NO Fluid in the middle ear (otitis media with effusion) NO Urinary Tract Infection Yes Antibiotics Aren?t Always the Answer www.cdc.gov/getsmart GET SMART Know When Antibiotics Work U.S. Department of Health and Human Services Centers for Disease Control and Prevention July 2014[facility] Patient Handouton [id number] HandoutPatient Education Materials Follows: [facility] Note- Provideron [id number] Care Note- ProviderPatient: CHEL CHAPARRO Age: 34 years Sex: MALE : 1985 Associated Diagnoses: Foreign body of thumb, left Author: Tomasz Ashby PA-C Basic Information Additional information: Chief Complaint from Nursing Triage Note : Chief Complaint 08/26/2019 16:28 EDT Chief Complaint [facility] follow up . History of Present Illness OCCUPATIONAL HEALTH FOLLOW-UP Date of injury: 08/20/19 Claim #: [id number] Employer: [employer] Mechanism of Injury: A nail from a nail gun backfired and went into his left thumb. Diagnosis: Foreign body, thumb This is a 34 year old here today in follow-up for a work related injury. 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 He came to the ER. Td was updated, there was no bony involvement. Thumb was anesthetized and the nail was easily removed. He was discharged home on Keflex and it is healing without incident. He has been back to full duty work and is here today for a follow-up. No fevers, chills or malaise. No joint pains or myalgias. No numbness, tingling or weakness. No skin rashes or lesions. Healed puncture wound. There are no other associated symptoms. Nothing else makes the symptoms better or worse. Symptoms are described as sudden onset, moderate in nature and improved. Health Status Allergies: Allergic Reactions (Selected) Severity Not Documented Flexeril- No reactions were documented. Imitrex- No reactions were documented. Percocet 5/325- No reactions were documented.. Medications: (Selected) Documented Medications Documented levothyroxine: Daily, 0 Refill(s). Past Medical/ Family/ Social History Medical history: No active or resolved past medical history items have been selected or recorded.. Surgical history: No active procedure history items have been selected or recorded.. Family history: No family history items have been selected or recorded.. Social history: Social & Psychosocial Habits Substance Abuse 08/20/2019 Substance use: Never Tobacco 08/26/2019 Smoking tobacco use: 10 or more cigarettes (1/ Electronic Cigarette/Vaping 08/20/2019 Electronic Cigarette Use: Never . Problem list: No qualifying data available . Physical Examination Vital Signs Vital Signs 08/26/2019 16:28 EDT Temperature Temporal 36.9 DegC Peripheral Pulse Rate 81 bpm Respiratory Rate 18 br/min Systolic Blood Pressure 120 mmHg Diastolic Blood Pressure 74 mmHg SpO2 98 % . GENERAL: Awake, alert and oriented to person, place and situation. Well nourished, well developed, non toxic, NAD. EXTREMITIES: No bony TTP, no cyanosis, clubbing or edema. Good muscle tone, full ROM without difficulty. Brisk cap refill distally, radial pulses 2+ bilaterally. SKIN: Puncture wound entrance/exit wounds healed without incident, no local redness or warmth, otherwise normal inspection, no visualized rash. NEUROLOGIC: Light touch sensation in tact, strength 5/5 in bilateral upper extremities. Normal mentation. No focal neurological deficits appreciated. Medical Decision Making Puncture wound healed, without incident. Return/continue full duty work. Return with new, or worsening symptoms, or symptoms failing to improve as expected and the patient voiced their understanding.Questions answered. Follow-up here only as needed. Impression and Plan Diagnosis Foreign body of thumb, left ([id number] S60.352A, Discharge, Medical) Plan Condition: Stable. Disposition: Discharged: Time 08/26/2019 16:41:00, to home. Follow up with: ; Return to this practice , only if needed. Counseled: Patient, Regarding diagnosis, Regarding treatment plan, Patient indicated understanding of instructions.[facility] Recordon [phone] ? [facility] [address] [place] [address] PATIENT DISCHARGE INSTRUCTIONS Patient Information Name: CHEL CHAPARRO Age: 34 Years Date of : 1985 Reason For Visit: Medical screening exam; [facility] FOLLOW UP Arrival Time: 08/26/2019 16:25:00 Primary Care Physician: KORY YAN Attending Physician: Tomasz Ashby PA-C Comment: Visit Diagnosis: Diagnoses This Visit Foreign body of thumb, left (S60.352A) Medical screening exam ([id number]) If you received any narcotics, sedation, or any other medication that causes drowsiness for the next 24 hours, unless otherwise directed: ? Do not drive a car. ? Do not operate machinery such as power tools, lawn mowers, drills, sewing machines, or stoves ? Avoid alcoholic beverages and drugs for allergies, nerves, or sleep ? Do not make important personal or business decisions or sign any legal documents With: Address: When: Return to this practice , only if needed Medication Information: The exam and treatment you received today in the [facility] were for an urgent problem and are not intended as complete care. It is important for you to follow up with a doctor, nurse practitioner, or physician?s placement assistant for ongoing care. If your symptoms become worse or you do not improve as expected and you are unable to reach your usual health care provider, you should return to the Emergency Department, we are available 24 hours a day. For those patients who have received Radiology results, the interpretation of your X-ray as given to you by our Urgent Care physician is only a preliminary report. The Radiologist will review your films and if there is a change in the diagnosis you will be notified by phone. Please make sure you have provided a working phone number so we can reach you if necessary. In the event that you had a lab culture while you were a patient in the Urgent Care, you will be notified by phone if there is a need to change your antibiotic. Please make sure you have provided a working phone number so we can reach you if necessary. [facility] has provided you with a complete list of medications post discharge. Please inform your irrigation specialist/provider of your visit and for further instruction on these medications. Any specific questions regarding your chronic medications and dosages should be discussed with your primary care physician(s) and/or pharmacist. Medications to Continue That Have Not Changed Other Medications levothyroxine every day. Visit Information Allergies: Substance Reaction Symptoms Type Comments Flexeril Drug Imitrex Drug Percocet 5/325 Drug Vital Signs: Vitals and Measurements this Visit (last charted value for your 08/26/2019 visit) Vital Signs This Visit Temperature Temporal: 36.9 DegC Peripheral Pulse Rate: 81 bpm Respiratory Rate: 18 br/min Systolic Blood Pressure: 120 mmHg Diastolic Blood Pressure: 74 mmHg SpO2: 98 % Problems List: Problem Onset Comments No Problems found Patient Education Viruses or Bacteria What?s got you sick? Antibiotics only treat bacterial infections. Viral illnesses cannot be treated with antibiotics. When an antibiotic is not prescribed, ask your healthcare professional for tips on how to relieve symptoms and feel better. Usual Cause Illness Viruses Bacteria Antibiotic Needed Cold/Runny Nose NO Bronchitis/Chest Cold (in otherwise healthy children and adults) NO Whooping Cough Yes Flu NO Strep Throat Yes Sore Throat (except strep) NO Fluid in the middle ear (otitis media with effusion) NO Urinary Tract Infection Yes Antibiotics Aren?t Always the Answer www.cdc.gov/getsmart GET SMART Know When Antibiotics Work U.S[place] Department of Health and Human Services Centers for Disease Control and Prevention July 2014[facility] Coding Summaryon [id number] SummaryCODING DATE: 08/22/2019 [facility] STATUS: Home PAYOR: Self Pay ADMIT DX: REASON FOR VISIT DX: S61.042A Puncture wound with foreign body of left thumb without damage to nail, initial encounter FINAL DX: PRINCIPAL: S61.042A Puncture wound with foreign body of left thumb without damage to nail, initial encounter SECONDARY: W45.0XXA Nail entering through skin, initial encounter Z23 Encounter for immunization PYMT PROC APC STAT DESCRIPTION DOCTOR NAME DATE NOTE: The code number assigned matches the documented diagnosis and / or procedure in the patient's chart. However, the narrative phrase printed from the coding software may appear abbreviated, or result in slightly different terminology. Coded By: Hal Cooper Date Saved: 08/22/2019 03:25 [facility] HospitalCoding SummaryCODING DATE: 08/22/2019 [facility] STATUS: Home PAYOR: Workers Compensation APC DESCRIPTION 5521 Level 1 Imaging without Contrast ADMIT DX: REASON FOR VISIT DX: S61.042A Puncture wound with foreign body of left thumb without damage to nail, initial encounter FINAL DX: PRINCIPAL: S61.042A Puncture wound with foreign body of left thumb without damage to nail, initial encounter SECONDARY: W45.0XXA Nail entering through skin, initial encounter Z23 Encounter for immunization PYMT PROC APC STAT DESCRIPTION DOCTOR NAME DATE NOTE: The code number assigned matches the documented diagnosis and / or procedure in the patient's chart. However, the narrative phrase printed from the coding software may appear abbreviated, or result in slightly different terminology. Revised Coded By: Hal Cooper Revised Date Saved: 08/22/2019 03:23 [facility] Noteon [id number] [facility] HospitalED Clinical Summaryon [id number] Clinical Summary [facility] Emergency Department [address] [place], [place] [id number] ED Clinical Summary PERSON INFORMATION Name: CHEL CHAPARRO Age: 34 Years Sex: MALE : 1985 MRN: Acct#: Visit Reason: Puncture wound of hand; FOREIGN OBJECT THROUGH LEFT THUMB Arrival: 08/20/2019 15:17:00Discharge: 08/20/2019 17:00:00 LOS: 000 01:43 Check In: 08/20/2019 15:17:00 Checkout:08/20/2019 17:00:00 Address: [address] [place] [address] PCP: KORY YAN PROVIDER INFORMATION Provider Role Assigned Unassigned Noe Hilliard PA-C ED PA 08/20/2019 15:28:23 TYRNOE ORANTES ED PA 08/20/2019 15:28:39 08/20/2019 15:31:56 Jaylyn RN, Fabio Cortez ED Nurse 08/20/2019 15:39:45 VITALS INFORMATION Vital Sign Triage Latest Temperature Tympanic Temperature Temporal Artery Pulse Rate 90 bpm 90 bpm O2 Sat 98 % 98 % Respiratory Rate 16 br/min 16 br/min Blood Pressure /95 mmHg /95 mmHg MEDICAL INFORMATION Medications Given: Medication Dose Route Tdap 0.5 mL IM bacitracin topical 500 unit(s) TOP Allergy Information: Percocet 5/325; Imitrex; Flexeril PHYSICIAN DOCUMENTATION Patient: CHEL CHAPARRO Age: 34 years Sex: MALE : 1985 Associated Diagnoses: Foreign body of thumb, left Author: Noe Hilliard PA-C Basic Information Time seen: Date & time 08/20/2019 15:28:00. History source: Patient. Arrival mode: Private vehicle. History limitation: None. History of Present Illness 34-year-old male presents here to the emergency department this afternoon with chief complaint of nail in the left thumb. 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 States it went through the palmar aspect of the left thumb. States they tried to cut the end TO see if he could turn it. States he was unsuccessful and was more tender than he thought it would be. Patient rates his discomfort as a 610 the pain scale nonradiating throbbing in nature. minimal bleeding. Denies any numbness or tingling. is unsure of his last tetanusso this will be updated for him. Able to move the left thumb. Patient has no other concerns at thistime. Review of Systems Constitutional symptoms: No fever, no chills, no sweats, no weakness, no fatigue. Skin symptoms: No rash, Eye symptoms: Vision unchanged. ENMT symptoms: No ear pain, no sore throat, no nasal congestion, no sinus pain. Respiratory symptoms: No shortness of breath, no cough. Cardiovascular symptoms: Diaphoresis, no chest pain, no palpitations, no tachycardia, no syncope, no peripheral edema. Musculoskeletal symptoms: Foreign body of left thumb. Additional review of systems information: All other systems reviewed and otherwise negative. Health Status Allergies: Allergic Reactions (Selected) Severity Not Documented Imitrex- No reactions were documented. Percocet 5/325- No reactions were documented.. Medications: (Selected) Inpatient Medications Ordered tetanus/diphth/pertuss (Tdap) adult/adol: 0.5 mL, IM, Once Completed Pepcid: 20 mg, 2 mL, IV Push, Once Zofran: 6 mg, 3 mL, IV Push, Once hyoscyamine: 0.125 mg, 1 tab(s), PO, Once Discontinued Sodium Chloride 0.9% 1,000 mL: 1,000 mL/hr, IV Prescriptions Prescribed Bentyl 20 mg oral tablet: 20 mg, 1 tab(s), PO, QID, for 2 day(s), 1 every 6 hours as needed for crampy abdominal pain, 8 tab(s), 0 Refill(s) Zofran 4 mg oral tablet: 4 mg, 1 tab(s), PO, q4hr, for 2 day(s), 8 tab(s), 0 Refill(s) Documented Medications Documented levothyroxine: Daily, 0 Refill(s). Immunizations: Unknown. Past Medical/ Family/ Social History Social history: Social & Psychosocial Habits No Data Available . Physical Examination General: Alert, no acute distress. Skin: Warm, dry, intact, no pallor, no rash, Nail through the distal aspect the patient's left thumb.. Head: Normocephalic, atraumatic. Neck: Supple. Eye: Pupils are equal, round and reactive to light, extraocular movements are intact, normal conjunctiva. Ears, nose, mouth and throat: Oral mucosa moist. Cardiovascular: Regular rate and rhythm, No murmur, Normal peripheral perfusion, No edema. Respiratory: Lungs are clear to auscultation, respirations are non-labored, breath sounds are equal, Symmetrical chest wall expansion. Musculoskeletal: Normal ROM, normal strength, no swelling, no deformity, Normal range of motion of all fingers on left hand. Normal flexion-extension at the DIP and MCP joint space of the left thumb.Brisk capillary refill bilaterally with strong radial pulses bilaterally. Patient had a nail through the distal aspect of the left thumb. This was palmar aspect. Minimal bleeding. Edema at this area. No other significant edema. No focal deficits. Patient is neurovascularly intact.. Neurological: Alert and oriented to person, place, time, and situation, No focal neurological deficit observed, normal sensory observed, normal motor observed, normal speech observed, normal coordination observed, Normal sensory, motor, speech, coordination is observed on exam of the patient.. Lymphatics: No lymphadenopathy. Psychiatric: Cooperative, appropriate mood & affect, normal judgment, non-suicidal. Medical Decision Making Orders Launch Orders Pharmacy: tetanus/diphth/pertuss (Tdap) adult/adol (Order): 0.5 mL, IM, Once Radiology: XR Hand Complete Left (Order): 08/20/2019 15:31 EDT Stat, Nail in left thumb, Allow Modification PerRadiologist, Transport Mode: Wheelchair, Launch Orders Patient Care: Wound Care Routine (Order): 08/20/2019 16:44 EDT, betasept, normal saline Pharmacy: bacitracin topical (Order): 1 james, TOP, Once. Radiology results: X-ray, left thumb, reviewed radiologist's report, interpretation: * Preliminary Report * Reason For Exam Nail in left thumb REPORT EXAM: XR Finger Left HISTORY: Nail in left thumb COMPARISON: None TECHNIQUE: AP and lateral views of the left thumb were obtained. FINDINGS: There is curvilinear opacity compatible with nail foreign body through the entirety of the soft tissue of the thumb from lateral to medial located anterior to the distal phalanx, there is no obvious bony involvement. No definite acute fracture or dislocation. No obvious subcutaneous air. Mild soft tissue swelling is suggested. The foreign body measures approximately 32 x 3 mm. IMPRESSION: Left thumb study demonstrates nail foreign body within the anterior soft tissue of the thumb. No obvious bony involvement. No definite acute fracture or dislocation. Follow-up as needed. Signature Line Preliminary Report Dictated by: Jose Bennett MD Dictated DT/TM: 08/20/19 4:12 pm Technologist: AD KATE. Reexamination/ Reevaluation 16:22 I sent with patient and in regards to patient's left thumb x-ray. The nail is not into the bone. This appears to be a soft tissue injury. Will use 1% lidocaine without epinephrine for a shell block. We'll then remove the nail from patient's left thumb. Patient agrees and understands planof care. 16:45 the patient on removing nail from left thumb in regards to watching this with warm soap and water daily. Bacitracin bandage used to cover the area. He will keep this covered while working and open to air at night. May take Tylenol as needed for discomfort. Will follow primary care in 3-5 days. He understands to return here to the emergency department for any worsening or concerning symptoms. Will place patient on Keflex 3 times daily ?3 days for prevention of skin infection. Patient's tetanus was updated. Patient agrees and understands plan of care. Procedure 16:30 patient's left thumb was cleansed with alcohol pad. I used 1% lidocaine for digital block of the left thumb. A total of 3 cc was used. 2 cc of 1% lidocaine was used around the foreign body at the distal aspect the left thumb. Patient tolerated well. Used a pair of sterile hemostats to grab a hold of the nail and pulled from patient's soft tissue at the distal aspect of the left thumb. Patient tolerated this well. Procedure took approximately 10 minutes. Following removal left thumb was cleansed thoroughly and Betasept soaked in normal saline. Brisk capillary refill prior to and following procedure. Impression and Plan Diagnosis Foreign body of thumb, left (NRQ30-CG S60.352A, Discharge, Medical) Plan Condition: Stable. Disposition: Discharged: Time 08/20/2019 16:47:00, to home. Prescriptions: Launch prescriptions Pharmacy: Keflex 500 mg oral capsule (Prescribe): 500 mg = 1 cap(s), PO, q8hr, for 3 day(s), 9 cap(s), 0 Refill(s). Patient was given the following educational materials: Hand or Foot Foreign Body, Adult, Skin Foreign Body, Skin Foreign Body, Hand or Foot Foreign Body, Adult. Follow up with: KORY YAN Within 3 to 5 days Please follow up with your primary care provider in 3-5 days. You were seen and treated in the emergency department this afternoon for foreign body in the left thumb. You had left thumb x-ray completed which noted a nail through the tip of the left thumb. This did not involve bone. I used lidocaine to perform a digital block left thumb as well as use some locally around the nail site. Nail was then removed from the left thumb and cleansed thoroughlywith Betasept soap and normal saline. Bacitracin ointment and bandage was used to cover the area. Tetanus was updated for you today. You may wash the area with warm soap and water daily. A prescription for Keflex, antibiotic was sent to [facility] pharmacy for you. Please take this as directed. You mayreturn here to the emergency department for any worsening or concerning symptoms.. Counseled: Patient, Friend, Regarding diagnosis, Regarding diagnostic results, Regarding treatment plan, Regarding prescription, Patient indicated understanding of instructions. DISCHARGE INFORMATION: Discharge Disposition: Home Discharge Location: Home PATIENT EDUCATION INFORMATION Instructions: Skin Foreign Body; Hand or Foot Foreign Body, Adult Follow-Up: With: Address: When: KORY YAN [address] [place], [place] [id number] Business (1) Within 3 to 5 days Comments: Please follow up with your primary care provider in 3-5 days. You were seen and treated in the emergency department this afternoon for foreign body in the left thumb. You had left thumb x-ray completed which noted a nail through the tip of the left thumb. This did not involve bone. I used lidocaineto perform a digital block left thumb as well as use some locally around the nail site. Nail was then removed from the left thumb and cleansed thoroughly with Betasept soap and normal saline. Bacitracin ointment and bandage was used to cover the area. Tetanus was updated for you today. You may washthe area with warm soap and water daily. A prescription for Keflex, antibiotic was sent to [facility] pharmacy for you. Please take this as directed. You may return here to the emergency department for any worsening or concerning symptoms. DIAGNOSIS: Foreign body of thumb, left Patient Understands: Yes - Patient/family/caregiver verbalizes understanding of instructions given Comment:[facility] Note - Physicianon [id number] Note - PhysicianPatient: CHEL CHAPARRO Age: 34 years Sex: MALE : 1985 Associated Diagnoses: Foreign body of thumb, left Author: Babak HOLT, Noe Gonzalez Basic Information Time seen: Date & time 08/20/2019 15:28:00. History source: Patient. Arrival mode: Private vehicle. History limitation: None. History of Present Illness 34-year-old male presents here to the emergency department this afternoon with chief complaint of nail in the left thumb. 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 States it went through the palmar aspect of the left thumb. States they tried to cut the end TO see if he could turn it. States he was unsuccessful and was more tender than he thought it would be. Patient rates his discomfort as a 610 the pain scale nonradiating throbbing in nature. minimal bleeding. Denies any numbness or tingling. is unsure of his last tetanusso this will be updated for him. Able to move the left thumb. Patient has no other concerns at thistime. Review of Systems Constitutional symptoms: No fever, no chills, no sweats, no weakness, no fatigue. Skin symptoms: No rash, Eye symptoms: Vision unchanged. ENMT symptoms: No ear pain, no sore throat, no nasal congestion, no sinus pain. Respiratory symptoms: No shortness of breath, no cough. Cardiovascular symptoms: Diaphoresis, no chest pain, no palpitations, no tachycardia, no syncope, no peripheral edema. Musculoskeletal symptoms: Foreign body of left thumb. Additional review of systems information: All other systems reviewed and otherwise negative. Health Status Allergies: Allergic Reactions (Selected) Severity Not Documented Imitrex- No reactions were documented. Percocet 5/325- No reactions were documented.. Medications: (Selected) Inpatient Medications Ordered tetanus/diphth/pertuss (Tdap) adult/adol: 0.5 mL, IM, Once Completed Pepcid: 20 mg, 2 mL, IV Push, Once Zofran: 6 mg, 3 mL, IV Push, Once hyoscyamine: 0.125 mg, 1 tab(s), PO, Once Discontinued Sodium Chloride 0.9% 1,000 mL: 1,000 mL/hr, IV Prescriptions Prescribed Bentyl 20 mg oral tablet: 20 mg, 1 tab(s), PO, QID, for 2 day(s), 1 every 6 hours as needed for crampy abdominal pain, 8 tab(s), 0 Refill(s) Zofran 4 mg oral tablet: 4 mg, 1 tab(s), PO, q4hr, for 2 day(s), 8 tab(s), 0 Refill(s) Documented Medications Documented levothyroxine: Daily, 0 Refill(s). Immunizations: Unknown. Past Medical/ Family/ Social History Social history: Social & Psychosocial Habits No Data Available . Physical Examination General: Alert, no acute distress. Skin: Warm, dry, intact, no pallor, no rash, Nail through the distal aspect the patient's left thumb.. Head: Normocephalic, atraumatic. Neck: Supple. Eye: Pupils are equal, round and reactive to light, extraocular movements are intact, normal conjunctiva. Ears, nose, mouth and throat: Oral mucosa moist. Cardiovascular: Regular rate and rhythm, No murmur, Normal peripheral perfusion, No edema. Respiratory: Lungs are clear to auscultation, respirations are non-labored, breath sounds are equal, Symmetrical chest wall expansion. Musculoskeletal: Normal ROM, normal strength, no swelling, no deformity, Normal range of motion of all fingers on left hand. Normal flexion-extension at the DIP and MCP joint space of the left thumb.Brisk capillary refill bilaterally with strong radial pulses bilaterally. Patient had a nail through the distal aspect of the left thumb. This was palmar aspect. Minimal bleeding. Edema at this area. No other significant edema. No focal deficits. Patient is neurovascularly intact.. Neurological: Alert and oriented to person, place, time, and situation, No focal neurological deficit observed, normal sensory observed, normal motor observed, normal speech observed, normal coordination observed, Normal sensory, motor, speech, coordination is observed on exam of the patient.. Lymphatics: No lymphadenopathy. Psychiatric: Cooperative, appropriate mood & affect, normal judgment, non-suicidal. Medical Decision Making Orders Launch Orders Pharmacy: tetanus/diphth/pertuss (Tdap) adult/adol (Order): 0.5 mL, IM, Once Radiology: XR Hand Complete Left (Order): 08/20/2019 15:31 EDT Stat, Nail in left thumb, Allow Modification PerRadiologist, Transport Mode: Wheelchair, Launch Orders Patient Care: Wound Care Routine (Order): 08/20/2019 16:44 EDT, betasept, normal saline Pharmacy: bacitracin topical (Order): 1 james, TOP, Once. Radiology results: X-ray, left thumb, reviewed radiologist's report, interpretation: * Preliminary Report * Reason For Exam Nail in left thumb REPORT EXAM: XR Finger Left HISTORY: Nail in left thumb COMPARISON: None TECHNIQUE: AP and lateral views of the left thumb were obtained. FINDINGS: There is curvilinear opacity compatible with nail foreign body through the entirety of the soft tissue of the thumb from lateral to medial located anterior to the distal phalanx, there is no obvious bony involvement. No definite acute fracture or dislocation. No obvious subcutaneous air. Mild soft tissue swelling is suggested. The foreign body measures approximately 32 x 3 mm. IMPRESSION: Left thumb study demonstrates nail foreign body within the anterior soft tissue of the thumb. No obvious bony involvement. No definite acute fracture or dislocation. Follow-up as needed. Signature Line Preliminary Report Dictated by: Jose Bennett MD Dictated DT/TM: 08/20/19 4:12 pm Technologist: AD KATE. Reexamination/ Reevaluation 16:22 I sent with patient and in regards to patient's left thumb x-ray. The nail is not into the bone. This appears to be a soft tissue injury. Will use 1% lidocaine without epinephrine for a shell block. We'll then remove the nail from patient's left thumb. Patient agrees and understands planof care. 16:45 the patient on removing nail from left thumb in regards to watching this with warm soap and water daily. Bacitracin bandage used to cover the area. He will keep this covered while working and open to air at night. May take Tylenol as needed for discomfort. Will follow primary care in 3-5 days. He understands to return here to the emergency department for any worsening or concerning symptoms. Will place patient on Keflex 3 times daily ?3 days for prevention of skin infection. Patient's tetanus was updated. Patient agrees and understands plan of care. Procedure 16:30 patient's left thumb was cleansed with alcohol pad. I used 1% lidocaine for digital block of the left thumb. A total of 3 cc was used. 2 cc of 1% lidocaine was used around the foreign body at the distal aspect the left thumb. Patient tolerated well. Used a pair of sterile hemostats to grab a hold of the nail and pulled from patient's soft tissue at the distal aspect of the left thumb. Patient tolerated this well. Procedure took approximately 10 minutes. Following removal left thumb was cleansed thoroughly and Betasept soaked in normal saline. Brisk capillary refill prior to and following procedure. Impression and Plan Diagnosis Foreign body of thumb, left ([id number] S60.352A, Discharge, Medical) Plan Condition: Stable. Disposition: Discharged: Time 08/20/2019 16:47:00, to home. Prescriptions: Launch prescriptions Pharmacy: Keflex 500 mg oral capsule (Prescribe): 500 mg = 1 cap(s), PO, q8hr, for 3 day(s), 9 cap(s), 0 Refill(s). Patient was given the following educational materials: Hand or Foot Foreign Body, Adult, Skin Foreign Body, Skin Foreign Body, Hand or Foot Foreign Body, Adult. Follow up with: KORY YAN Within 3 to 5 days Please follow up with your primary care provider in 3-5 days. You were seen and treated in the emergency department this afternoon for foreign body in the left thumb. You had left thumb x-ray completed which noted a nail through the tip of the left thumb. This did not involve bone. I used lidocaine to perform a digital block left thumb as well as use some locally around the nail site. Nail was then removed from the left thumb and cleansed thoroughlywith Betasept soap and normal saline. Bacitracin ointment and bandage was used to cover the area. Tetanus was updated for you today. You may wash the area with warm soap and water daily. A prescription for Keflex, antibiotic was sent to [facility] pharmacy for you. Please take this as directed. You mayreturn here to the emergency department for any worsening or concerning symptoms.. Counseled: Patient, Friend, Regarding diagnosis, Regarding diagnostic results, Regarding treatment plan, Regarding prescription, Patient indicated understanding of instructions. [Electronically Signed on: 08/20/2019 17:02 EDT] Noe Hilliard PA-C [Verified on: 08/20/2019 17:02 EDT] Babak HOLT, Noe [facility] Patient Education Noteon [id number] Patient Education NoteEducation Materials Dermatology Skin Foreign Body A skin foreign body is an object that is stuck in the skin. Common objects that get stuck in the skin include: ? Wood (splinter). ? Glass. ? Rock. ? Nails. ? [place]. ? Thorns or cactus spines. ? Fiberglass slivers. ? Fish hooks. ? BBs. Foreign bodies may damage tissue or cause infection. If the foreign body does not cause any pain orinfection, it may be okay to leave it in the skin. What are the causes? This condition is caused by an object getting lodged under the skin, usually by accident. Children may get a skin foreign body while playing outside. Adults may get a skin foreign body after breakingglass or while working with wood, fiberglass, or stone material. In some cases, the object may get stuck in an open wound after an injury. What are the signs or symptoms? Symptoms of this condition include: ? Pain. ? A feeling of something being stuck under the skin. How is this diagnosed? This condition is diagnosed based on: ? Your medical history and symptoms. ? A physical exam. ? Imaging tests, such as: ? X-rays. ? CT scans. ? Ultrasounds. How is this treated? Treatment for this condition depends on what the foreign body is, where it is, and whether it is causing infection or other symptoms. Treatment may involve: ? Removing all or part of the object with a needle and metal tweezers. In some cases, an incision may be made in the skin to allow access to the object. ? Waiting to remove the object until it moves closer to the surface of the skin. This may take several days. ? Leaving the object in place. This may be done if the object is not causing any symptoms or if removal will cause more damage to the skin or tissue. ? Antibiotic pills or ointment to treat or prevent infection. Follow these instructions at home: Wound or incision care ? If the foreign body was removed, follow instructions from your health care provider about how to take care of your wound or incision. Make sure you: ? Wash your hands with soap and water before you change your bandage (dressing). If soap and water are not available, use hand firewall administrator. ? Change your dressing as told by your health care provider. ? Leave stitches (sutures), skin glue, or adhesive strips in place. These skin closures may need tostay in place for 2 weeks or longer. If adhesive strip edges start to loosen and curl up, you may trim the loose edges. Do not remove adhesive strips completely unless your health care provider tellsyou to do that. ? Check your wound or incision every day for signs of infection. This is especially important if the foreign body was left in place in the skin. Check for: ? Redness, swelling, or pain. ? Fluid or blood. ? Pus or a bad smell. ? Warmth. General instructions ? Take ufvb-zcr-pekmjnq and prescription medicines only as told by your health care provider. ? If you were prescribed an antibiotic medicine or ointment, use it as told by your health care provider. Do not stop using the antibiotic even if you start to feel better. ? Keep all follow-up visits as told by your health care provider. This is important. Contact a health care provider if: ? You develop more pain or other new symptoms around the area where the object entered the skin. ? You have redness, swelling, or pain around your wound or incision. ? You have fluid or blood coming from your wound or incision. ? Your wound or incision feels warm to the touch. ? You have pus or a bad smell coming from your wound or incision. ? You have a fever. Get help right away if: ? You have severe pain that does not get better with medicine. Summary ? A skin foreign body is an object that is stuck in the skin. Common objects that get stuck in the skin include wood, glass, rock, thorns, and fiberglass slivers. ? Treatment for this condition depends on what the foreign body is, where it is, and whether it is causing infection or other symptoms. ? Treatment may include removing the foreign body or leaving it in place. It is important to watch the wound or incision for signs of infection, especially if the object was left in place in the skin. This information is not intended to replace advice given to you by your health care provider. Make sure you discuss any questions you have with your health care provider. Document Released: 01/30/2018 Document Revised: 01/30/2018 Document Reviewed: 01/30/2018 [employer] Interactive Patient Education ? 2019 [employer] Hand or Foot Foreign Body, Adult A foreign body is an object that gets into your body that should not be there. Your hands and feet are common entry points for foreign bodies. Common examples of foreign bodies include: ? Splinters. ? Thorns. ? Pieces of glass, wood, metal, or plastic. ? Metal objects such as needles, nails, and fishing hooks. Foreign bodies that are not removed quickly may cause infection. What are the causes? A foreign body can get in your hand or foot through an injury, such as a scrape or cut, or if something punctures your skin. What are the signs or symptoms? Symptoms of having recently gotten a foreign body in your hand or foot include: ? Pain. ? Redness. ? Swelling. ? Tenderness. ? Numbness or tingling. ? Noticing something under the skin. If the foreign body has caused an infection, symptoms may also include: ? Fever. ? Warmth in the area of the puncture. ? A lump that you can feel under the skin. ? Not being able to use your hand or put weight (bear weight) on your foot. ? Greenish or yellow fluid coming from the puncture area. How is this diagnosed? Your health care provider will diagnose a foreign body in the hand or foot by taking a medical history and examining your wound. If the foreign body is deep, you may also have tests, such as an X-ray, MRI, or ultrasound. In some cases, your health care provider may need to numb the area, open it up to examine what is inside your skin, and remove the object. How is this treated? Your health care provider may be able to remove the foreign body while exploring your wound during the diagnosis. If the foreign body is deep or in a wound that is infected, you may need to have a procedure to remove it. If an incision is needed, it may be closed with stitches (sutures), skin glue, or adhesive strips. A bandage (dressing) will be placed over the incision. You may also need to get a tetanus shot or take antibiotic medicines to prevent or treat an infection. Follow these instructions at home: Medicines ? Take foiq-bva-dmvtcda and prescription medicines only as told by your health care provider. ? If you were prescribed an antibiotic medicine, take the antibiotic as told by your health care provider. Do not stop taking the antibiotic even if you start to feel better. Wound care ? Change your dressing as told by your health care provider. ? Follow instructions from your health care provider about how to take care of your wound or incision. Make sure you: ? Wash your hands with soap and water before you change your dressing. If soap and water are not available, use hand firewall administrator. ? Change your dressing as told by your health care provider. ? Leave sutures, skin glue, or adhesive strips in place. These skin closures may need to stay in place for 2 weeks or longer. If adhesive strip edges start to loosen and curl up, you may trim the loose edges. Do not remove adhesive strips completely unless your health care provider tells you to do that. ? Check your puncture area or incision every day for signs of infection. Check for: ? More redness, swelling, or pain. ? More fluid or blood. ? Warmth. ? Pus or a bad smell. General instructions ? Return to your normal activities as told by your health care provider. Ask your health care provider what activities are safe for you. ? Do not take baths, swim, or use a hot tub until your health care provider approves. Ask your health care provider if you may take showers. You may only be allowed to take sponge baths. ? Keep all follow-up visits as told by your health care provider. This is important. How is this prevented? To protect yourself: ? Wear gloves when working with sharp objects. ? Do not walk barefoot in areas where there may be sharp objects. ? Wear thick-soled shoes or boots when walking in areas where there are sharp objects. Contact a health care provider if: ? You have a foreign body that has not come out or been removed. ? You have more redness, swelling, or pain around the puncture area or incision. ? You have more fluid or blood coming from the puncture area or incision. ? Your puncture area or incision feels warm to the touch. ? You have pus or a bad smell coming from the puncture area or incision. ? You have a fever. ? You were given a tetanus shot, and you have swelling, severe pain, redness, or bleeding at the injection site. Get help right away if: ? Your puncture area becomes numb. ? You cannot use your hand or foot. Summary ? A foreign body is an object that gets into your body that should not be there. Your hands and feet are common entry points for foreign bodies. ? Your health care provider may be able to remove the foreign body while exploring your wound during the diagnosis. If the foreign body is deep or in a wound that is infected, you may need to have a procedure to remove it. ? You may also need to get a tetanus shot or take antibiotic medicines to prevent or treat an infection. ? Check your puncture area or incision every day for signs of infection. This information is not intended to replace advice given to you by your health care provider. Make sure you discuss any questions you have with your health care provider. Document Released: 01/23/2018 Document Revised: 01/23/2018 Document Reviewed: 01/23/2018 [employer] Interactive Patient Education ? 2018 [email or web address] Patient Summaryon [id number] [facility] [address] [place] [address] PATIENT DISCHARGE INSTRUCTIONS Patient Information Name: CHEL CHAPARRO Age: 34 Years Date of : 1985 Reason For Visit: Puncture wound of hand; FOREIGN OBJECT THROUGH LEFT THUMB Arrival Time: 08/20/2019 15:17:00 Primary Care Physician: KORY YAN Attending Physician: Nima Baez MD Comment: Visit Diagnosis: Diagnoses This Visit Foreign body of thumb, left (S60.352A) Puncture wound of hand ([id number]) Prescription Information: If you have been given a prescription for narcotics, seek immediate medical attention if you have any difficulty breathing or any sudden status changes such as confusion andsleepiness. If you or anyone you know is experiencing suicidal thoughts, mental health, alcohol and/or drug addiction problems; contact the [facility] 04/06 Crisis Hotline -Text 4HIBL ys 235222. If you received any narcotics, sedation, or any other medication that causes drowsiness for the next 24 hours, unless otherwise directed: ? Do not drive a car. ? Do not operate machinery such as power tools, lawn mowers, drills, sewing machines, or stoves ? Avoid alcoholic beverages and drugs for allergies, nerves, or sleep ? Do not make important personal or business decisions or sign any legal documents With: Address: When: KORY YAN [address] [place], [place] [id number] Business (1) Within 3 to 5 days Comments: Please follow up with your primary care provider in 3-5 days. You were seen and treated in the emergency department this afternoon for foreign body in the left thumb. You had left thumb x-ray completed which noted a nail through the tip of the left thumb. This did not involve bone. I used lidocaineto perform a digital block left thumb as well as use some locally around the nail site. Nail was then removed from the left thumb and cleansed thoroughly with Betasept soap and normal saline. Bacitracin ointment and bandage was used to cover the area. Tetanus was updated for you today. You may washthe area with warm soap and water daily. A prescription for Keflex, antibiotic was sent to [facility] pharmacy for you. Please take this as directed. You may return here to the emergency department for any worsening or concerning symptoms. Medication Information: The exam and treatment you received today in the [facility] Emergency Department were for an urgent problem and are not intended as complete care. It is important for you to follow up with a doctor, nurse practitioner, or physician?s placement assistant for ongoing care. If your symptoms become worse or you donot improve as expected and you are unable to reach your usual health care provider, you should return to the Emergency Department, we are available 24 hours a day. For those patients who have received Radiology results, the interpretation of your X-ray as given to you by our Emergency Department physician is only a preliminary report. The Radiologist will review your films and if there is a change in the diagnosis you will be notified by phone. Please make sure you have provided a working phone number so we can reach you if necessary. In the event that you had a lab culture while you were a patient in the Emergency Department, you will be notified by phone if there is a need to change your antibiotic. Please make sure you have provided a working phone number so we can reach you if necessary. [facility] Emergency Department has provided you with a complete list of medications post discharge. Please inform your irrigation specialist/provider of your visit and for further instruction on these medications. Any specific questions regarding your chronic medications and dosages should be discussed with your primary care physician(s) and/or pharmacist. New Medications [facility] [id number], [place] [id number], [phone] cephalexin (Keflex 500 mg oral capsule) 1 cap(s) Oral Every 8 hours for 3 Days. Refills: 0. Medications to Continue That Have Not Changed Other Medications dicyclomine (Bentyl 20 mg oral tablet) 1 tab(s) Oral 4 times a day for 2 Days. 1 every 6 hours as needed for crampy abdominal pain. Refills: 0. levothyroxine every day. ondansetron (Zofran 4 mg oral tablet) 1 tab(s) Oral Every 4 hours for 2 Days. Refills: 0. Visit Information Allergies: Substance Reaction Symptoms Type Comments Flexeril Drug Imitrex Drug Percocet 5/325 Drug Vital Signs: Vitals and Measurements this Visit (last charted value for your 08/20/2019 visit) Vital Signs This Visit Temperature Oral: 37.0 DegC Peripheral Pulse Rate: 90 bpm Respiratory Rate: 16 br/min Systolic Blood Pressure: 142 mmHg Diastolic Blood Pressure: 95 mmHg SpO2: 98 % Oxygen Therapy: Room air Measurements This Visit Height/Length Dosin.000 cm Height/Length Estimated: 178.000 cm Weight Dosin.500 kg Weight Estimated: 97.500 kg Problems List: Problem Onset Comments No Problems found Patient Education Skin Foreign Body A skin foreign body is an object that is stuck in the skin. Common objects that get stuck in the skin include: ? Wood (splinter). ? Glass. ? Rock. ? Nails. ? [place]. ? Thorns or cactus spines. ? Fiberglass slivers. ? Fish hooks. ? BBs. Foreign bodies may damage tissue or cause infection. If the foreign body does not cause any pain orinfection, it may be okay to leave it in the skin. What are the causes? This condition is caused by an object getting lodged under the skin, usually by accident. Children may get a skin foreign body while playing outside. Adults may get a skin foreign body after breakingglass or while working with wood, fiberglass, or stone material. In some cases, the object may get stuck in an open wound after an injury. What are the signs or symptoms? Symptoms of this condition include: ? Pain. ? A feeling of something being stuck under the skin. How is this diagnosed? This condition is diagnosed based on: ? Your medical history and symptoms. ? A physical exam. ? Imaging tests, such as: ? X-rays. ? CT scans. ? Ultrasounds. How is this treated? Treatment for this condition depends on what the foreign body is, where it is, and whether it is causing infection or other symptoms. Treatment may involve: ? Removing all or part of the object with a needle and metal tweezers. In some cases, an incision may be made in the skin to allow access to the object. ? Waiting to remove the object until it moves closer to the surface of the skin. This may take several days. ? Leaving the object in place. This may be done if the object is not causing any symptoms or if removal will cause more damage to the skin or tissue. ? Antibiotic pills or ointment to treat or prevent infection. Follow these instructions at home: Wound or incision care ? If the foreign body was removed, follow instructions from your health care provider about how to take care of your wound or incision. Make sure you: ? Wash your hands with soap and water before you change your bandage (dressing). If soap and water are not available, use hand firewall administrator. ? Change your dressing as told by your health care provider. ? Leave stitches (sutures), skin glue, or adhesive strips in place. These skin closures may need tostay in place for 2 weeks or longer. If adhesive strip edges start to loosen and curl up, you may trim the loose edges. Do not remove adhesive strips completely unless your health care provider tellsyou to do that. ? Check your wound or incision every day for signs of infection. This is especially important if the foreign body was left in place in the skin. Check for: ? Redness, swelling, or pain. ? Fluid or blood. ? Pus or a bad smell. ? Warmth. General instructions ? Take jatm-nos-tlxfgyu and prescription medicines only as told by your health care provider. ? If you were prescribed an antibiotic medicine or ointment, use it as told by your health care provider. Do not stop using the antibiotic even if you start to feel better. ? Keep all follow-up visits as told by your health care provider. This is important. Contact a health care provider if: ? You develop more pain or other new symptoms around the area where the object entered the skin. ? You have redness, swelling, or pain around your wound or incision. ? You have fluid or blood coming from your wound or incision. ? Your wound or incision feels warm to the touch. ? You have pus or a bad smell coming from your wound or incision. ? You have a fever. Get help right away if: ? You have severe pain that does not get better with medicine. Summary ? A skin foreign body is an object that is stuck in the skin. Common objects that get stuck in the skin include wood, glass, rock, thorns, and fiberglass slivers. ? Treatment for this condition depends on what the foreign body is, where it is, and whether it is causing infection or other symptoms. ? Treatment may include removing the foreign body or leaving it in place. It is important to watch the wound or incision for signs of infection, especially if the object was left in place in the skin. This information is not intended to replace advice given to you by your health care provider. Make sure you discuss any questions you have with your health care provider. Document Released: 01/30/2018 Document Revised: 01/30/2018 Document Reviewed: 01/30/2018 [employer] Interactive Patient Education ? 2019 [employer] Hand or Foot Foreign Body, Adult A foreign body is an object that gets into your body that should not be there. Your hands and feet are common entry points for foreign bodies. Common examples of foreign bodies include: ? Splinters. ? Thorns. ? Pieces of glass, wood, metal, or plastic. ? Metal objects such as needles, nails, and fishing hooks. Foreign bodies that are not removed quickly may cause infection. What are the causes? A foreign body can get in your hand or foot through an injury, such as a scrape or cut, or if something punctures your skin. What are the signs or symptoms? Symptoms of having recently gotten a foreign body in your hand or foot include: ? Pain. ? Redness. ? Swelling. ? Tenderness. ? Numbness or tingling. ? Noticing something under the skin. If the foreign body has caused an infection, symptoms may also include: ? Fever. ? Warmth in the area of the puncture. ? A lump that you can feel under the skin. ? Not being able to use your hand or put weight (bear weight) on your foot. ? Greenish or yellow fluid coming from the puncture area. How is this diagnosed? Your health care provider will diagnose a foreign body in the hand or foot by taking a medical history and examining your wound. If the foreign body is deep, you may also have tests, such as an X-ray, MRI, or ultrasound. In some cases, your health care provider may need to numb the area, open it up to examine what is inside your skin, and remove the object. How is this treated? Your health care provider may be able to remove the foreign body while exploring your wound during the diagnosis. If the foreign body is deep or in a wound that is infected, you may need to have a procedure to remove it. If an incision is needed, it may be closed with stitches (sutures), skin glue, or adhesive strips. A bandage (dressing) will be placed over the incision. You may also need to get a tetanus shot or take antibiotic medicines to prevent or treat an infection. Follow these instructions at home: Medicines ? Take hcxq-gdx-aslxccz and prescription medicines only as told by your health care provider. ? If you were prescribed an antibiotic medicine, take the antibiotic as told by your health care provider. Do not stop taking the antibiotic even if you start to feel better. Wound care ? Change your dressing as told by your health care provider. ? Follow instructions from your health care provider about how to take care of your wound or incision. Make sure you: ? Wash your hands with soap and water before you change your dressing. If soap and water are not available, use hand firewall administrator. ? Change your dressing as told by your health care provider. ? Leave sutures, skin glue, or adhesive strips in place. These skin closures may need to stay in place for 2 weeks or longer. If adhesive strip edges start to loosen and curl up, you may trim the loose edges. Do not remove adhesive strips completely unless your health care provider tells you to do that. ? Check your puncture area or incision every day for signs of infection. Check for: ? More redness, swelling, or pain. ? More fluid or blood. ? Warmth. ? Pus or a bad smell. General instructions ? Return to your normal activities as told by your health care provider. Ask your health care provider what activities are safe for you. ? Do not take baths, swim, or use a hot tub until your health care provider approves. Ask your health care provider if you may take showers. You may only be allowed to take sponge baths. ? Keep all follow-up visits as told by your health care provider. This is important. How is this prevented? To protect yourself: ? Wear gloves when working with sharp objects. ? Do not walk barefoot in areas where there may be sharp objects. ? Wear thick-soled shoes or boots when walking in areas where there are sharp objects. Contact a health care provider if: ? You have a foreign body that has not come out or been removed. ? You have more redness, swelling, or pain around the puncture area or incision. ? You have more fluid or blood coming from the puncture area or incision. ? Your puncture area or incision feels warm to the touch. ? You have pus or a bad smell coming from the puncture area or incision. ? You have a fever. ? You were given a tetanus shot, and you have swelling, severe pain, redness, or bleeding at the injection site. Get help right away if: ? Your puncture area becomes numb. ? You cannot use your hand or foot. Summary ? A foreign body is an object that gets into your body that should not be there. Your hands and feet are common entry points for foreign bodies. ? Your health care provider may be able to remove the foreign body while exploring your wound during the diagnosis. If the foreign body is deep or in a wound that is infected, you may need to have a procedure to remove it. ? You may also need to get a tetanus shot or take antibiotic medicines to prevent or treat an infection. ? Check your puncture area or incision every day for signs of infection. This information is not intended to replace advice given to you by your health care provider. Make sure you discuss any questions you have with your health care provider. Document Released: 01/23/2018 Document Revised: 01/23/2018 Document Reviewed: 01/23/2018 [employer] Interactive Patient Education ? 2019 [employer] Viruses or Bacteria What?s got you sick? Antibiotics only treat bacterial infections. Viral illnesses cannot be treated with antibiotics. When an antibiotic is not prescribed, ask your healthcare professional for tips on how to relieve symptoms and feel better. Usual Cause Illness Viruses Bacteria Antibiotic Needed Cold/Runny Nose NO Bronchitis/Chest Cold (in otherwise healthy children and adults) NO Whooping Cough Yes Flu NO Strep Throat Yes Sore Throat (except strep) NO Fluid in the middle ear (otitis media with effusion) NO Urinary Tract Infection Yes Antibiotics Aren?t Always the Answer www.cdc.gov/getsmart GET SMART Know When Antibiotics Work [place] Department of Health and Human Services Centers for Disease Control and Prevention July 2014[facility] XR Finger Lefton 03-09-3823HS Finger LeftEXAM: XR Finger Left HISTORY: Nail in left thumb COMPARISON: None TECHNIQUE: AP and lateral views of the left thumb were obtained. FINDINGS: There is curvilinear opacity compatible with nail foreign body through the entirety of the soft tissue of the thumb from lateral to medial located anterior to the distal phalanx, there is no obvious bony involvement. No definite acute fracture or dislocation. No obvious subcutaneous air. Mild soft tissue swelling is suggested. The foreign body measures approximately 32 x 3 mm. IMPRESSION: Left thumb study demonstrates nail foreign body within the anterior soft tissue of the thumb. No obvious bony involvement. No definite acute fracture or dislocation. Follow-up as needed. Final Dictated by: Jose Bennett MD Dictated DT/TM: 08/20/19 4:12 Signed (Electronic Signature): Jose Bennett MD 08/20/19 4:21 pm Technologist: LAVINIA,[facility] Vital Signs Date TimeVital SignValuePerforming WhtvnukjdGtdfaaog14-12-3879 11:13-0400 Diastolic blood wixaqxsa20 mm[Hg]Juan Ellis MD Work Phone: bon [facility]08-07-2025 11:13-040Heart rate84 /minChristian Caleb SPRING Work Phone: bon [facility]08-07-2025 11:13-5258KwH9% (BldA) [Mass fraction]98 %Juan Ellis MD Work Phone: [address]08-07-2025 11:13-0400Systolic blood lxxzcidh100 mm[Hg]Juan Ellis MD Work Phone: [address]08-07-2025 10:43-0400Body dbfsrwjvico26.01 [degF]Juan Ellis MD Work Phone: [address]08-07-2025 10:43-0400 Respiratory rate18 /minChmeena Ellis MD Work Phone: [phone]08-07-2025 08:21-0400Body xteckz686.7 Rhonda Ellis MD Work Phone: [address]08-07-2025 08:21-0400Body mass index (BMI) [Ratio]32.69 kg/c6Rozrgekyymeena Ellis MD Work Phone: [address]08-07-2025 08:21-0400Body iulvky14.52 kgChmeena Ellis MD Work Phone: [address]03-15-2022 16:00-0400Body .4 kgDavid Hykes Other [employer] Other 11-17-2021 15:30-0500Body ojkonq816.4 kgDavid Hykes Other [employer] Other 10-05-2021 14:00-0400Body edvcrw574.4 kgDavid Hykes Other [employer] Other Encounters Encounter DateEncounter TypeCare ProviderFacilityStart: 80-32-6901chemrmekrcVpzc L SchwabFacility:FT FM BellevueStart: 06-26-2025 End: 22-29-2966ugbrfzxvgaOokb L SchwabFacility:[facility] ueStart: 06-19-2025 End: 99-98-6978xuzrkqssxrXluz L SchwabFacility::[id number]: 06-17-2025 End: 33-24-0395Bwqensoalu and management of inpatientChmeena Ellis MD Work Phone: mtV[facility] MED SURGComment on above:Chest pain, unspecified type (Primary Dx); Elevated troponin; NSTEMI (non-ST elevated myocardial infarction) (HCC); Pneumonia of right lower lobe due to infectious organism; Sepsis, due to unspecified organism, unspecified whether acute organ dysfunction present (HCC); Chest pain, unspecifiedStart: 06-10-2025 End: 66-71-4479usokndblblDawc L SchwabFacility:[facility] ueStart: 05-04-2025 End: 65-76-7503sbvklfnbyeCkru L SchwabFacility:[facility] ueStart: 04-02-2025 End: 72-42-8397bbsrkrrwbqCwwx L SchwabFacility:[facility] ueStart: 03-05-2025 End: 46-71-7437fafzpnwbrsHrvx L SchwabFacility:[facility] ueStart: 01-29-2025 End: 11-05-2016qjqeactxgsTyzd L SchwabFacility:[facility] tart: 01-01-2025 End: 68-96-0855lsfyupfsvhUaxe L SchwabFacility:[facility] BellueStart: 11-25-2024 End: 49-74-3976Upp Drop offJodi L Luz [facility] Start: 11-25-2024 End: 99-73-2630iaknpvnyebYhxh L SchwabFacility:FTMCStart: 09-01-2024 End: 63-96-7855hnkaobdhndRgtb L SchwabFacility:[facility] BellueStart: 07-21-2024 End: 96-82-4363tnrvrzwavmXsiv L SchwabFacility:[facility] BellevueStart: 07-18-2024 End: 02-31-1431cqpgirtkugFras L SchwabFacility:[facility] CenterueStart: 07-16-2024 Vimal Miller DDSHealProMedica Bay Park Hospital - HPWOStart: 07-11-2024 End: 10-81-7929Rkczvgntp department patient visitLA CROSSE Padma YANPremier Health Atrium Medical Centertart: 22-23-1440lirijptdopTpwwevllvfl AbdelazizFacility:[facility] Daytontart: 01-23-2023 End: 54-56-2388avqswgsetaER KIM E KNIGHT .Facility:F6Muasb: 01-11-2023 End: 33-94-1242magffilttmIW KIM E KNIGHT .Facility:U0Anahb: 10-04-2022 End: 72-09-5207xufujvllvdVzbtlmfx McCormack Other [employer] Other Start: 09-26-2104Oclsjausm encounterLawrence Rajesh NEHAL GastroenterologyStart: 05-26-2022 End: 84-22-1223xndvmsosckYkptl Hykes Other [employer] Other Start: 86-64-0620Hnnshbrzg encounterDavid HykesFPG GastroenterologyStart: 03-08-2022 End: 01-33-9561njycejicmfQbjsp Hykes Other [employer] Other Start: 24-84-8852Rhiyoeqaq encounterDavid HykesFPG GastroenterologyStart: 01-24-2022 End: 84-02-9304qcbpqlmasoQwcfp Hykes Other [employer] Other Start: 20-27-9650Vgeemk outpatient visit 25 minutes Dana WhitakerG GastroenterologyStart: 10-24-2021 End: 23-47-5949qdqkdveztaLmsaj Hykes Other [employer] Other Start: 36-08-0062Woexdqwfw encounterDavid HykesFPG GastroenterologyStart: 09-28-2021 End: 04-24-0738opyjfkazypDsbkx Hykes Other [employer] Other Start: 41-90-4701Cwbisg outpatient visit 25 minutes Dana HykesFPG GastroenterologyStart: 09-27-2021 End: 25-06-2578sejlhrlytyShcxe Hykes Other [facility] [employer] Other Start: 44-28-1835Heptervzi encounterDavid HykesFPG GastroenterologyStart: 47-08-8159Shitro outpatient visit 25 minutesDavid Hykes FPG Gastroenterology Procedures DateProcedureProcedure DetailPerforming ClinicianStart: 05-21-8306Wsentfsrohvt coronary interventionSteven Kiersten SPRING Work Phone: Start: 02-45-8873Zzukb of magnesiumShirley A Bruna Benedict DAIRY DEPARTMENT MANAGER - JOURNALISM TEACHER Work Phone: Start: 75-98-4533KOVVT METABOLIC PANEL W/ REFLEX TO MG FOR LOW KShirley A Grace DAIRY DEPARTMENT MANAGER - JOURNALISM TEACHER Work Phone: Start: 78-04-0095Altqpavhtxwuvs time partial plasma/whole bloodShirley A Grace DAIRY DEPARTMENT MANAGER - JOURNALISM TEACHER Work Phone: Start: 86-93-8849Boekkaihbhjxkq time partial plasma/whole bloodShirley A Grace DAIRY DEPARTMENT MANAGER - JOURNALISM TEACHER Work Phone: Start: 20-46-4303Ndxmz of troponin quantitativeShirley A Grace DAIRY DEPARTMENT MANAGER - JOURNALISM TEACHER Work Phone: Start: 04-71-5865LZAOHAZ, SEPSISShirley A [facility] Work Phone: Start: 86-79-7405Ufehpjcaxxkbbz time partial plasma/whole bloodStefadrien Worrell MD Work Phone: Start: 31-73-6986EOC w or wo fol wcon,DopplerKimmie Davis [facility] Work Phone: Start: 19-14-3434Locadc ecg 1-3 leads w/interpretation & reportUnknown Provider ResultStart: 75-65-6504Kricc of troponin quantitative Trupti Hamlin MD Work Phone: Start: 52-67-6206QPYPIAWNVNM PANEL, MOLECULAR, WITH COVID-19Kimmie Davis [facility] Work Phone: Start: 76-92-2792Nfwrs of troponin quantitativeTrupti Hamlin MD Work Phone: Start: 66-73-9657Gzivs panelShirnelly Davis [facility] Work Phone: Start: 30-80-5699Bagh tst prsmv instrmnt chem analyzers pr dateJuan Ellis MD Work Phone: Start: 23-36-3128Dgleubabaf microscopic onlyChmeena Ellis MD Work Phone: Start: 82-52-1676Rimya dip stick/tablet rgnt auto w/o microscopyChmeena Ellis MD Work Phone: Start: 02-99-5210Okk routine ecg w/least 12 lds i&r onlyChmeena Ellis MD Work Phone: Start: 17-59-8094Tg thorax w/contrast material Juan Ellis MD Work Phone: Start: 06-17-2025 End: 89-26-7125Zookhehu kinase totalThwilton Hamlin MD Work Phone: Start: 06-17-2025 End: 08-26-0594OSTTGHU, BLOOD 1Chrmadelyn Ellis MD Work Phone: Start: 76-60-0656RJTBVODTO, BLOODThais Jaelyn Hamlin MD Work Phone: Start: 90-47-9167Qcdvprk bacterial blood aerobic w/id isolatesChmeena Ellis MD Work Phone: Start: 79-62-7155Vwcgyicxfr exam chest single view Juan Ellis MD Work Phone: Start: 69-58-1951Ffmrf of acetaminophenJuan Ellis MD Work Phone: Start: 05-91-1576Gkycc of salicylateJuan Ellis MD Work Phone: Start: 06-17-2025 End: 11-28-9907Ojtehbnkzsfmg metabolic panelJuan Ellis MD Work Phone: Start: 06-17-2025 End: 14-69-9706Grk routine ecg w/least 12 lds i&r onlyJuan Ellis MD Work Phone: Start: 49-09-5697LwbojasffogJloz Luz Plan of Treatment DateCare ActivityDetailAuthorStart: 35-34-0099OVyD/Tdap/Td vaccine (2 - Td or Tdap)DTaP/Tdap/Td vaccine (2 - Td or Tdap)Bon [facility] SystemStart: 26-62-7661Bxnkj panelLipidsBon [facility] SystemStart: 07-31-2025 End: 30-31-0750Kugjziw encounter vfhgyozzr42/19/2025 2:20 PM EDT Office Visit [facility] Part of [address] [address] Lilia Burch MD [address] [place] [phone] 1 month post cath, per [facility] Part of [facility] CenterComment on above: 1 month post cath, per Dr. Lopez: 32-10-6229Eavpxgamq vaccinationFlu vaccine (#1)[facility]: 81-63-4380BEFOB-19 Vaccine ( season)COVID-19 Vaccine ( season)[facility]: 42-80-8171Wderwoah screenDiabetes screenBon [facility]: 25-53-6102Joagmtflx B vaccine (1 of 3 - 19+ 3-dose series)Hepatitis B vaccine (1 of 3 - 19+ 3-dose series)[facility]: 62-26-6150Edrzloykhssk 0-49 years Vaccine (1 of 2 - PCV)Pneumococcal 0-49 years Vaccine (1 of 2 - PCV) [facility]: 01-46-3031Haqgltjay C screeningHepatitis C screen [facility]: 09-44-0785KEH screeningHIV screenR[facility]ide [facility]: 64-55-0247Mciaawitb vaccine (1 of 2 - 13+ 2-dose series) Varicella vaccine (1 of 2 - 13+ 2-dose series)[facility]: 50-41-3983Yxipuomywm ScreenDepression ScreenCarilion [facility]an[facility] End: 44-35-2183Yoeyd Metabolic Panel w/ Reflex to MGBasic Metabolic Panel w/ Reflex to MG Lab Routine Daily for 5 Days starting 06/18/2025 until 06/22/2025, 1 completedCarilion Roanoke Memorial HospitalComselect specialty hospital-[facility] on above:Daily for 5 Days starting 06/18/2025 until 06/22/2025, 1 completedBlood Culture 1Bon [facility] End: 90-61-7913EIR W Auto Differential panel - BloodCBC auto differential Lab Routine Daily for 5 Days starting 06/18/2025 until 06/22/2025, 1 [facility] above:Daily for 5 Days starting 06/18/2025 until 06/22/2025, 1 completedCt thorax w/contrast materialCT CHEST PULMONARY EMBOLISM W CONTRAST Imaging STAT 06/17/2025 7:32 AM EDTBWakoopaCulture, Blood 2Culture, Blood 2 Microbiology STAT 06/17/2025 6:30 AM EDRestored Hearing Ltd. End: 42-81-2202WNM 12 LeadEKG 12 Lead ECG Routine Tomorrow AM for 1 Occurrences starting 06/18/2025 until 06/18/2025 [employer] on above: Tomorrow AM for 1 Occurrences starting 06/18/2025 until 06/18/2025Oxygen therapy [Minimum Data Set]Initiate Oxygen Therapy Protocol Respiratory Care Routine As Needed until discontinued starting 06/17/2025[employer] on above:As Needed until discontinued starting 06/17/2025Oxygen therapy [Minimum Data Set]Initiate Oxygen Therapy Protocol Respiratory Care Routine As Needed until discontinued starting 06/18/2025 [employer] Phone: Comment on above:As Needed until discontinued starting 06/18/2025Positive Expiratory Pressure TherapyPositive Expiratory Pressure Therapy Respiratory Care Routine TID until discontinued starting 06/17/2025[employer] Phone: Comment on above:TID until discontinued starting 06/17/2025 End: 77-92-7289ZXAGEIKY REJECTIONBon [employer] on above:Once for 1 Occurrences starting 06/17/2025 until 06/17/2025Vibratory Airway Clearance Vibratory Airway Clearance Respiratory Care Routine TID until discontinued starting 06/17/2025[employer] on above:TID until discontinued starting 06/17/2025 Immunizations Immunization DateImmunizationNotesCare LwtnicdaGoutauea15-47-7575wresokw toxoid, reduced diphtheria toxoid, and acellular pertussis vaccine, adsorbedJoByeCity Luz 111-2418Zqvhxu-NsspwAv[facility] 09-86-5208xfuhhhq, mumps and rubella virus vaccineJodi Luz 645-6126Dhiacl-DwtfkAv[facility] NEGATED: Highlighted row has not occurred!15-41-3251lsvcngolt virus vaccine, unspecified formulationJodi Luz 148-4884Elzwwe-QtmdsAv[facility] NEGATED: Highlighted row has not occurred!37-26-4666XQCP-CoV-2 mRNA (tozinameran 5y-11y) vaccineJodi Luz 558-1057Fpyomn-OhpgfAvita Health System [facility] Hospital Payers DatePayer CategoryPayerPolicy [id number] 2.16.840.1.435157.3.579.2.593 [id number] 2.16.840.1.272084.3.57[id number] 2.16.840.1.524532.3.57[id number] 2.16.840.1.400865.3.57[id number] 2.16.840.1.800474.3.57[id number] 2.16.840.1.982000.3.57[id number] 2.16.840.1.400144.3.57[id number] 2.16.840.1.683147.3.57[id number] 2.16.840.1.207969.3.57[id number] 2.16.840.1.377817.3.57[id number] 2.16.840.1.328550.3.57[id number] 2.16.840.1.401337.3.57[id number] 2.16.840.1.735770.3.57[id number] 2.16.840.1.247034.3.57[id number] 2.16.840.1.885516.3.57[id number] 2.16.840.1.032272.3.57[id number] 2.16840.1.218894.3.57[id number] 2.16840.1.293075.3.57[id number] 2.840.1.212567.3.579.2.531 Social History DateTypeDetailFacilityStart: 06-17-2025 End: 24-68-8842Jlh Assigned At [facility] Springfieldtart: 07-16-2558Drozfyy smoking statusHeavy tobacco smoker (finding)[facility] HospitalTobacco smoking statusNeClermont County Hospital BellevueStart: 34-91-7829Etzfygb smoking status NHISSmokes tobacco dailyBon Secours Uk Healthcarey HealthHistory of tobacco useCigarette SmokerBon Secours [facility] Healthcarey HealthStart: 03-74-1241Ppvkaqt use and exposureUser of smokeless tobaccoBon Secours Mercy HealthHistory of tobacco useChews TobaccoBon Secours Uk Healthcarey HealthStart: 65-17-7479Wzcewlttf beverage intakeCurrent drinker of alcohol (finding)Bon [address] AvenueStart: 06-17-2025 End: 84-09-6951Bkbjrtfoq beverage intakeSentara Leigh HospitalWakoopa Knox Community HospitalHas the [employer] [place], gas, oil, or water company threatened to shut off services in your home in past 12MoNoBon [address] AvenueHow often to you have a drink containing alcohol?NeverChandler Regional Medical Center [address](I/We) worried whether (my/our) food would run out before (I/we) got money to buy more.Never trueBon [facility] HospitalWakoopa Knox Community HospitalStart: 68-29-8010Aes assigned at birthNot on fileChandler Regional Medical Center Empire AvenueBasom: 03-76-6991HcpIjxv (finding)[facility] [address] Functional Status DateAssessmentResultFacilCass Medical CenterPlanet Daily Clinical Notes 08-16-2021 to 06-18-2025 Note Date & JymoFovqInxgkvtm56-28-5346 History of Present illness Narrative* Agatha Holland, RICRADA - 06/18/2025 12:29 PM EDT Patient is leaving the floor at this time. Patient's significant other is driving him home. Patientdischarged. * Thao Koch RN - 06/18/2025 12:25 PM EDT Reviewed discharge instructions with patient and girlfriend. Patient aware of need to hot die picker new prescriptions. Reviewed new medications and side effects to monitor for. Reviewed home medications and when next dose is due. Patient aware of date/time of follow up appointment with Dr. Burch and patient stated that he already has an appointment next week with his PCP. Patient instructed to follow alow fat, low cholesterol diet. Reviewed post cardiac cath instructions with patient and girlfriend.Reviewed how to remove dressing starting @ 1530. Educated on signs/symptoms of infection to monitorfor and was instructed to either call Dr. Burch or go to nearest ER. Dr. Burch's office number provided to patient. Educational handouts given on Hypertension, Chest Pain, and Heart Healthy Diet. Questions answered. Verbalizes understanding. Copy of discharge instructions given to patient. * Agatha Holland RN - 06/18/2025 10:41 AM EDT Patient returned from pathology laboratory aide at this time * Agatha Holland RN - 06/18/2025 7:02 AM EDT Vitals and assessment complete at this time. See flowsheets for details. Patient is resting in bed.Patient is A&O x4. Breathing is regular and unlabored. Lung sounds are clear. Patient denies chest pain, SOB, palpitations, dizziness or lightheadedness. Patient is aware of plan for heart cath today. Patient remains NPO. Patient denies further needs. Call light is within reach. Care ongoing. * Nain Dacosta RD, AUGUSTIN - 06/18/2025 6:00 AM EDT Comprehensive Nutrition Assessment Type and Reason for Visit: Initial, Positive nutrition screen Nutrition Recommendations/Plan: Heart healthy education Malnutrition Assessment: Malnutrition Status: At risk for malnutrition (06/18/25 0726) Context: Acute Illness Findings of the 6 clinical characteristics of malnutrition: Energy Intake: Mild decrease in energy intake Weight Loss: Greater than 5% over 1 month Body Fat Loss: No body fat loss Muscle Mass Loss: No muscle mass loss Fluid Accumulation: No fluid accumulation [employer] Strength: Not Performed Nutrition Assessment: Unintentional weight losses r/t altered GI status, AEB ongoing stomach problems. States ~230# a month or so ago but has also been consuming more whole fruits and vegetables. Avoids caffeine with stomach issues already. Admitted for chest pain with pending heart cath today. Accepting of heart healthy MNT information and discussion. Unlikely to need ONS which was initiated upon admission for positive nutrition screening (now d/c with NPO). Nutrition Related Findings: active b/s. no edema. Wound Type: None Current Nutrition Intake & Therapies: Average Meal Intake: 76-100% Average Supplements Intake: Unable to assess (no record) Diet NPO Anthropometric Measures: Height: 172.7 cm (5' 8 ) [place] Body Weight (IBW): 154 lbs (70 kg) Admission Body Weight: 95.5 kg (210 lb 8 oz) Current Body Weight: 97.7 kg (215 lb 4.8 oz), 139.8 % IBW. Weight Source: Bed scale Current BMI (kg/m2): 32.7 Usual Body Weight: 83 kg (183 lb) (a year ago) % Weight Change (Calculated): 17.7 Weight Adjustment For: No Adjustment BMI Categories: Obese Class 1 (BMI 30.0-34.9) Estimated Daily Nutrient Needs: Energy Requirements Based On: Kcal/kg Weight Used for Energy Requirements: Current Energy (kcal/day): 3960-2204 (18-) Weight Used for Protein Requirements: [place] Protein (g/day): 77-91 (1.1-1.3) Method Used for Fluid Requirements: 1 ml/kcal Fluid (ml/day): Nutrition Diagnosis: Unintended weight loss related to altered GI function as evidenced by weight loss Lab Results Component Value Date NA 139 06/18/2025 K 3.5 (L) 06/18/2025 CL 107 06/18/2025 CO2 21 06/18/2025 BUN 7 06/18/2025 CREATININE 0.7 06/18/2025 GLUCOSE 101 (H) 06/18/2025 CALCIUM 8.5 (L) 06/18/2025 BILITOT 1.0 06/17/2025 ALKPHOS 74 06/17/2025 AST 24 06/17/2025 ALT 32 06/17/2025 LABGLOM >90 06/18/2025 GFRAA >60 05/02/2015 No results found for: LABA1C No results found for: VITD25 Nutrition Interventions: Food and/or Nutrient Delivery: Continue Current Diet Nutrition Education/Counseling: Education/Counseling initiated Coordination of Nutrition Care: Continue to monitor while inpatient Plan of Care discussed with: patient Goals: Goals: Meet at least 75% of estimated needs, by next RD assessment Type of Goal: New goal Previous Goal Met: New Goal Nutrition Monitoring and Evaluation: Behavioral-Environmental Outcomes: None Identified Food/Nutrient Intake Outcomes: Food and Nutrient Intake Physical Signs/Symptoms Outcomes: Biochemical Data, Weight Discharge Planning: No discharge needs at this time Nain Dacosta RD, LD Contact: [phone] * Nyla Cabrera RN - 06/17/2025 8:42 PM EDT Processing Archivist verified with pharmacy that NS is compatible with heparin. * Clair Monroy GN - 06/17/2025 7:31 PM EDT Patient is A&Ox 4. Vital signs and head to toe assessment completed, see flowsheet for specificdetails. Patient's chest pain is 4 at this time, patient describes pain as heavy and uncomfortable . Non-pharmaceutical interventions taken at this time. Plan of care on going and will continue to monitor chest pain. Patient denies any further needs at this time. Standard safety precautions in place. * Karol Kirk RN - 06/17/2025 4:[address] Burch on video visit with patient via [employer] at this time. * Karol Kirk RN - 06/17/2025 3:42 PM EDT Troponin drawn and sent to lab * Karol Kirk RN - 06/17/2025 2:23 PM EDT Notified Kimmie GONZALEZ of lactate results 1.1. Per Kimmie, no need to get second lactate draw. * Karol Kirk RN - 06/17/2025 1:09 PM EDT Consult to cardiology completed. Dr Burch working from home. Spoke with Tiffanie in office and she will let Dr Burch know about consult * Penny Shaver RPH - 06/17/2025 11:56 AM EDT Images from the original note were not included. Pharmacy Note - Weight/BMI Adjustment(s) Ceftriaxone 1g Q24h for treatment of Pneumonia (Community). Per [facility] Ceftriaxone Dosing Guidance Document, ceftriaxone will be changed to 2g Q24h Estimated Creatinine Clearance: Estimated Creatinine Clearance: 112 mL/min (based on SCr of 1 mg/dL). BMI: Body mass index is 31.09 kg/m . Please call with any questions. Thank you, Penny Shaver RPH , documented in this encounterBon [facility] Hospital Discharge instructions* Discharge Instructions* Mayte Anderson RN - 06/18/2025 10:01 AM EDT Discharge Instructions for Cardiac Catheterization A cardiac catheterization is a diagnostic test used to evaluate the health of the heart and its blood vessels. The test is done with a thin catheter carefully threaded into your heart from a leg or arm artery. Most likely, you will be allowed to go home the same day as the procedure. Steps to Take at Home: Pain- apply ice to site 15-20 minutes every hour for the first 2 days. Showering is okay 24 hours after procedure. No soaking in a pool, hot tub, bath tub, or standing water for one week. Bleeding (outward or under the skin-hematoma)- apply firm pressure for 10-15 minutes or until the bleeding stops, then call your doctor. If unable to get bleeding stopped, call 911. Kidney damage- Call if you urinate less than normal, have swelling or feel puffy, and/or gain 2 or more pounds over night in the first week. If procedure was in ARM: You were instructed to keep wrist straight and still for two hours after the procedure. The arm andhand may now be used for normal daily activities except, avoid using the heal of hand while gettingup and down from furniture for the first few days. Keep affected arm elevated, hand higher than elbow, while pressure dressing in place to decrease swelling. 1) Gauze and Elastoplast Remove in 4 hours as follows: TIME: 3:30 PM Remove 1 piece of tape at a time, waiting 15 -20 minutes between layers to monitor for bleeding. If dressing sticks, place wrist under cool running water to help loosen gauze from site then pat site dry. If hand feels numb, tingly, and/or cold- loosen first 1-2 layers of tape if dressing still in place. If no relief noticed, remove pressure dressing as per above instructions. Seek medical help if no relief or if dressing already off. If hand of procedure site becomes numb, tingly, and/or cold, seek medical help. Avoid heavy lifting, physically demanding activities, and sexual activity for 2- 3 days. Lift nothing over 10 pounds (a gallon of milk is 8 pounds). Wash area with soap and water daily while leaving it open to air, no bandaids or ointment. Diet Drink plenty of fluids after the test to flush the x-ray dye from your system. Return to your normal diet. No alcoholic beverages for 24 hours after the procedure. Sedation The sedative will make you sleepy. Rest until the effects have worn off. Nausea and vomiting from the sedative is normal and usually does not last long. Ask your doctor when you will be able to return to work. Do not drive, operate machinery, do anything that requires attention to detail, or sign important papers for at least 24 hours or until your doctor says it is safe. Do not sit for long periods of time. Try to change positions frequently. Medications Resume taking your normal medicines as advised. Use acetaminophen (Tylenol) for pain relief. (Avoid anti-inflammatory drugs such as- ibuprofen (Advil, Motrin), naproxen sodium (Aleve), Excedrin for a few days) If you had to stop taking these medications before the procedure, ask your doctor when you can resume taking them: Anti-inflammatory drugs Blood thinners, such as warfarin (Coumadin) If you are taking medicines, follow these general guidelines: Take your medicine as directed. Do not change the amount or the schedule. Do not stop taking them without talking to your doctor. Do not share them. Know the side effects and report any to your doctor. Some drugs can be dangerous when mixed. Talk to a doctor or pharmacist if you are taking more than one drug. This includes kaqw-gpb-eltvvot medicine and herb or dietary supplements. Plan ahead for refills so you don't run out. Follow-up The test results are available right after the procedure. At that point, the doctor will discuss the findings and suggest appropriate treatment options. In some cases, the results can indicate an immediate need for surgery. Schedule a follow-up appointment as directed by your doctor. Call Your Doctor at [phone] or go to the closest Emergency department if Any of the Following Occurs: Signs of infection- including fever and chills Redness, swelling, increasing pain, feels warm to touch, red streak forming from site, or any discharge from the procedure site. Call 911 If Any of the Following Occurs Drooping facial muscles Changes in vision or speech Difficulty walking or using your limbs Change in sensation, including numbness, feeling cold, or change in color Extreme sweating, nausea or vomiting Dizziness or lightheadedness Chest pain Rapid, irregular heartbeat Palpitations Cough, shortness of breath, or difficulty breathing Weakness or fainting If you think you have an emergency, CALL 911 * Discharge Instr - Activity* Thao Koch RN - 06/18/2025 12:01 PM EDT As tolerated per cardiac cath instructions * Discharge Instr - Diet* Thao Koch RN - 06/18/2025 12:01 PM EDT Good nutrition is important when healing from an illness, injury, or surgery. Follow any nutrition recommendations given to you during your hospital stay. If you were given an oral nutrition supplement while in the hospital, continue to take this supplement at home. You can take it with meals, in-between meals, and/or before bedtime. These supplements can be purchased at most local grocery stores, pharmacies, and chain super-stores. If you have any questions about your diet or nutrition, call the hospital and ask for the dietitian. Low fat, low cholesterol * Attachments The following attachments cannot be sent through Care Everywhere. * Hypertension: General Info (Prydeinig) * Chest Pain (Prydeinig) * Healthy Diet: Heart (Prydeinig) [facility] + Plan note Diagnostic Tests Pending * Thyroid Stimulating Hormone 11/25/24 * Testosterone Level Total 11/25/24 [facility] 11-23-2022 Evaluation note* Encounter Date Diagnosis Assessment Notes Treatment Notes Treatment Clinical Notes Sep, GERD (gastroesophageal reflux di sease) (ICD-10 - K21.9) [facility] Other 07-15-2022 Evaluation note* Encounter Date Diagnosis Assessment Notes Treatment Notes Treatment Clinical Notes May, Diarrhea (ICD-10 - R19.7) May,GERD (gastroesophageal reflux disease) (ICD-10 - K21.9) [facility] Other 04-27-2022 Evaluation note* Encounter Date Diagnosis Assessment Notes Treatment Notes Treatment Clinical Notes Feb, Diarrhea (ICD-10 - R19.7) [facility] Other 03-15-2022 Evaluation note* Encounter Date Diagnosis Assessment Notes Treatment Notes Treatment Clinical Notes Jan, Rectal bleeding (ICD-10 - K62.5) PATIENT STATES THAT THIS IS DARK AND CAN TELL THIS IS BLOOD. PATIENT DOES A BLAND DIET TO HELP CONTROL THIS. Jan,bnormal CT scan (ICD-10 - R93.89) Jan,bdominal pain (ICD-10 - R10.9) PATIENT STATES THAT THIS IS ALL OVER PAIN 15 Mar, 2022GERD (gastroesophageal reflux disease) (ICD-10 - K21.9) PROCEED WITH EGD [employer] Other 12-13-2021 Evaluation note* Encounter Date Diagnosis Assessment Notes Treatment Notes Treatment Clinical Notes Oct, Irritable bowel syndrome with di arrhea (ICD-10 - K58.0) [employer] Other 11-17-2021 Evaluation note* Encounter Date Diagnosis Assessment Notes Treatment Notes Treatment Clinical Notes Sep, Irritable bowel syndrome with di arrhea (ICD-10 - K58.0) Stop Levbid Stop Creon Stop Carafate Start Amitriptyline Sep,piploic appendagitis (ICD-10 - K63.89) Sep,GERD (gastroesophageal reflux disease) (ICD-10 - K21.9) Continue Pantoprazole Sep,ectal bleeding (ICD-10 - K62.5) Sep,bnormal abdominal CT scan (ICD-10 - R93.5) Continue Cipro and Flagyl until finished [employer] Other 10-05-2021 Evaluation note* Encounter Date Diagnosis Assessment Notes Treatment Notes Treatment Clinical Notes Aug, Irritable bowel syndrome with di arrhea (ICD-10 - K58.0) Irritable bowel syndrome material was printed Aug,bdominal pain (ICD-10 - R10.9) Aug,GERD (gastroesophageal reflux disease) (ICD-10 - K21.9) Continue Pantoprazole [employer] Other Evaluation noteNo [employer] Other Evaluation note* Diagnosis NSTEMI (non-ST elevated myocardial infarction) (HCC)- Primary Acute myocardial infarction, subendocardial infarction, episode of care unspecified Chest pain, unspecified type Elevated troponin Other abnormal blood chemistry NSTEMI (non-ST elevated myocardial infarction) (HCC) Acute myocardial infarction, subendocardial infarction, episode of care unspecified Pneumonia of right lower lobe due to infectious organism Sepsis, due to unspecified organism, unspecified whether acute organ dysfunction present (HCC) Chest pain, unspecified Cocaine abuse (HCC) Cocaine abuse, unspecified Hypertension Unspecified essential hypertension Right lower lobe pneumonia Pneumonia, organism unspecified Tobacco abuse Tobacco use disorder Chest pain in adult Severe sepsis (HCC) NSTEMI (non-ST elevated myocardial infarction) (HCC) Acute myocardial infarction, subendocardial infarction, episode of care unspecified documented in this encounter [facility] general Narrative - Reported* Type Description Date Medical History ibs [employer] Other Hospital course Narrative No data available for this section [facility] Hospital Discharge instructions No data available for this section [facility] Progress note No data available for this section [facility] Summary Purpose Family History No Family History Records FoundNo Family History Records FoundNo Family History Records FoundNo Family History Records Found No data available for this section No Family History Records FoundNo Family History Records FoundNo Family History Records FoundNo Family History Records Found Advance Directives No Advanced Directives Records Found Date ActivatedDate InactivatedComments06/17/2025 11:53 AM Additional Source Comments (unrecognized sect ion and content) No Status Records FoundNo Status Records FoundNo Status Records FoundNo Status Records FoundNo Status Records FoundNo Status Records FoundNo Status Records FoundNo Status Records Found INFORMATION SOURCE (unrecogn ized section and content) DATE CREATED AUTHOR 07/20/2020 [facility] DATE CREATED AUTHOR AUTHOR'S ORGANIZ ATION 03/07/2023 [facility] DATE CREATED AUTHOR AUTHOR'S ORGANIZ ATION 12/21/2023 [facility] DATE CREATED AUTHOR AUTHOR'S ORGANIZ ATION 07/18/2024 [facility] DATE CREATED AUTHOR AUTHOR'S ORGANIZ ATION 11/30/2024 [facility] DATE CREATED AUTHOR AUTHOR'S ORGANIZ ATION 12/03/2024 [facility] DATE CREATED AUTHOR AUTHOR'S ORGANIZ ATION 06/22/2025 [facility] DATE CREATED AUTHOR AUTHOR'S ORGANIZ ATION 07/21/2025 [facility] REASON FOR VISIT (unrecogniz ed section and content) ReasonCommentsChest PainPt called out to EMS for SOB and chest pain. Upon arrival EMS found him prone on the floor. Pt was A/O upon arrival and diaphoretic with complaints of chest pain and SOB.SpecialtyDiagnoses / ProceduresReferred By ContactReferred To Contact Diagnoses Chest pain in adult Mayte Worrell MD [address] [place] [address] Phone: tel: fax: [facility] [address] [place] [address] Referral IDStatusReasonStart DateExpiration DateVisits RequestedVisits [id number] Patient Care team informatio n (unrecognized section and content) Team MemberRelationshipSpecialtyStart DateEnd Date Aimee Jolly APRN - CRISIS COUNSELOR [address] [place] [address] PCP - General06/17/25 Ordered Prescriptions (unrec ognized section and content) PrescriptionSigDispense QuantityRefillsLast FilledStart DateEnd Date nicotine (NICODERM CQ) 21 MG/24HR Place 1 patch onto the skin daily 30 patch 50502/01/2026 amLODIPine (NORVASC) 2.5 MG tablet Take 1 tablet by mouth daily 30 tablet 5011/15/2025 atorvastatin (LIPITOR) 40 MG tablet Take 1 tablet by mouth nightly 30 tablet aspirin 81 MG chewable tablet Take 1 tablet by mouth daily 30 tablet Scheduled Active and Recently Administ ered Medications (unrecognized section and content) Medication Order//05/2025 acetaminophen (TYLENOL) tablet 1,000 mg (COMPLETED) 1,000 mg, Oral, ONCE, 1 dose, On Sun06/17/25 at 0600, Maximum dose of acetaminophen is 4000 mg from all sources in 24 hours. * 0601 (Given - Provider: Astrid Cast RN) amLODIPine (NORVASC) tablet 2.5 mg 2.5 mg, Oral, DAILY, First dose on Sun06/18/25 at 1130, Until Discontinued * 1118 (Given - Provider: Agatha Holland RN) aspirin chewable tablet 324 mg (COMPLETED) 324 mg, Oral, ONCE, 1 dose, On Sun06/17/25 at 0815 * 0809 (Given - Provider: Kristi Ha RN) aspirin chewable tablet 81 mg 81 mg, Oral, DAILY, First dose on Jossy 06/18/25 at 0900, Until Discontinued * 0837 (Not Given - Provider: Agatha Holland RN - Reason: Patient not available) atorvastatin (LIPITOR) tablet 40 mg 40 mg, Oral, NIGHTLY, First dose on Sun06/17/25 at 2100, Until Discontinued * 2030 (Given - Provider: BIBI Wyatt) * 2100 (Due) cefTRIAXone (ROCEPHIN) 2,000 mg in sterile water 20 mL IV syringe (COMPLETED) 2,000 mg, IntraVENous, ONCE, On Sun06/17/25 at 1030, For 1 dose, Administer as slow IV Push over 5 mins Reconstitute 2 g vials with 19.2 mL of designated diluent to produce a 100mg/mL solution * 1109 (Given - Provider: Kristi Ha RN) doxycycline (VIBRAMYCIN) 100 mg in sodium chloride 0.9 % 100 mL IVPB (COMPLETED) 100 mg, IntraVENous, Once, 1 dose, On Sun06/17/25 at 1030, Antimicrobial Indications: Pneumonia (CAP) * 1115 (New Bag - Provider: Kristi Ha RN) * 1215 (Stopped - Provider: Karol Kirk RN) doxycycline hyclate (VIBRAMYCIN) capsule 100 mg (CANCELED)(Linked Group 1) 100 mg, Oral, EVERY 12 HOURS SCHEDULED (2 times per day), 10 doses, First dose on Sun06/17/25 at 2100, Last dose on Sun06/22/25 at 0900, Antimicrobial Indications: Pneumonia (CAP), CAP duration of therapy: 5 days, This medication can interact with tube feedings (TF)- obtain MD order to manage. Recommend holding TF for 1 h before and 2 h after dose. Take 1 h before or 2 h after dairy, calcium, iron, magnesium, aluminum or zinc. * 2030 (Given - Provider: BIBI Wyatt) fentaNYL (SUBLIMAZE) injection 50 mcg 50 mcg, IntraVENous, ONCE, 1 dose, On Sun06/17/25 at 1045, If oral and IV narcotics ordered, use oral first and only use IV if oral is ineffective or cannot take oral. Do Not give oral and IV within 1hour of each other unless specifically ordered. * 1127 (Not Given - Provider: Kristi Ha RN - Reason: Patient/family refused - Comment: pt chooses to not take narcotics at this time.) heparin (porcine) injection 4,000 Units (COMPLETED) 4,000 Units, IntraVENous, ONCE, 1 dose, On Sun06/17/25 at 1215, Initial one time bolus * 1338 (Given - Provider: Karol Kirk, RICARDA) hyoscyamine (LEVSIN/SL) sublingual tablet 0.125 mg 0.125 mg, SubLINGual, 3 TIMES DAILY, First dose on Sun06/17/25 at 1400, Until Discontinued * 1354 (Given - Provider: Karol Kirk RN) * 2030 (Given - Provider: BIBI Wyatt) * 0837 (Not Given - Provider: Agatha Holland RN - Reason: Patient not available) * 1118 (Given - Provider: Agatha Holland RN) * 1400 (Due) * 2100 (Due) ipratropium 0.5 mg-albuterol 2.5 mg (DUONEB) nebulizer solution 1 Dose (CANCELED) 1 Dose, Inhalation, 4 TIMES DAILY RESP, First dose on Sun06/17/25 at 1600, Until Discontinued, Initiate RT Bronchodilator Protocol: Yes - Inpatient Protocol * 1544 (Given - Provider: Samira Wilson RCP) ipratropium 0.5 mg-albuterol 2.5 mg (DUONEB) nebulizer solution 1 Dose 1 Dose, Inhalation, 3 TIMES DAILY, First dose (after last modification) on Sun06/17/25 at 2100, Until Discontinued, Initiate RT Bronchodilator Protocol: Yes - Inpatient Protocol * 2049 (Given - Provider: Mami Causey RCP) * 0753 (Given - Provider: Shiela Patel RCP) * 1500 (Due) * 2100 (Due) levothyroxine (SYNTHROID) tablet 100 mcg 100 mcg, Oral, DAILY, First dose on Sun06/17/25 at 1215, Until Discontinued, Tube feeding (TF) interaction, obtain physician order to manage, recommend holding TF for 30 minutes before and after dose. * 1333 (Given - Provider: Karol Kirk, RICARDA) * 0837 (Not Given - Provider: Agatha Holland, RN - Reason: Patient not available) * 1117 (Given - Provider: Agatha Holland, RN) pantoprazole (PROTONIX) tablet 40 mg 40 mg, Oral, DAILY, First dose on Sun06/17/25 at 1215, Until Discontinued, Do not crush or break. * 1333 (Given - Provider: Karol Kirk RN) * 0837 (Not Given - Provider: Agatha Holland RN - Reason: Patient not available) * 1118 (Given - Provider: Agatha Holland, RN) sodium chloride 0.9 % bolus 1,000 mL (COMPLETED) 1,000 mL, IntraVENous, at 495.9 mL/hr, Administer over 121 Minutes, ONCE, On Sun06/17/25 at 0545, For 1 dose * 0544 (New Bag - Provider: Vira Rose RN) * 0745 (Stopped - Provider: Kristi Ha RN) sodium chloride flush 0.9 % injection 5-40 mL 5-40 mL, IntraVENous, EVERY 12 HOURS SCHEDULED (2 times per day), First dose on Sun06/17/25 at 2100,Until Discontinued, For Line Patency: Peripheral IV = 5 mL; Midline or Central Line = 10 mL/lumen. If following IV push medication, administer flush at same rate as the IV push. Flush volume is determined by type of infusion therapy being given. For non-viscous solutions use: Peripheral IV = 5 mL Midline or Central Line = 10 mL/lumen For viscous solutions (i.e. blood components, parenteral nutrition, contrast media, or after obtaining blood sample) use: Peripheral IV = 10 mL Midline or Central Line = 20 mL/lumen * 2036 (Given - Provider: BIBI Wyatt) * 0740 (Not Given - Provider: Agatha Holland, RICARDA - Reason: IV Fluid Infusing) * 2100 (Due) sodium chloride flush 0.9 % injection 5-40 mL 5-40 mL, IntraVENous, EVERY 12 HOURS SCHEDULED (2 times per day), First dose on Sun06/18/25 at 0945,Until Discontinued, For Line Patency: Peripheral IV = 5 mL; Midline or Central Line = 10 mL/lumen. If following IV push medication, administer flush at same rate as the IV push. Flush volume is determined by type of infusion therapy being given. For non-viscous solutions use: Peripheral IV = 5 mL Midline or Central Line = 10 mL/lumen For viscous solutions (i.e. blood components, parenteral nutrition, contrast media, or after obtaining blood sample) use: Peripheral IV = 10 mL Midline or Central Line = 20 mL/lumen, Recovery(Cath) * 1049 (Not Given - Provider: Agatha Holland RN - Reason: IV Fluid Infusing) * 2100 (Due) venlafaxine (EFFEXOR XR) extended release capsule 75 mg 75 mg, Oral, DAILY, First dose on Sun06/17/25 at 1400, Until Discontinued, Do not crush or break. * 1347 (Given - Provider: Karol Kirk RN) * 0837 (Not Given - Provider: Agatha Holland RN - Reason: Patient not available) * 1118 (Given - Provider: Agatha Holland RN) Medication Order06/16///05/2025 0.9 % sodium chloride infusion IntraVENous, at 75 mL/hr, CONTINUOUS, Starting on Sun06/17/25 at 1215, For 24 hours, Complete last bag that is running at 24 hours and then saline lock IV * 1337 (New Bag - Provider: Karol Kirk RN) * 0230 (New Bag - Provider: BIBI Wyatt) * 1008 (Stopped - Provider: Thao Koch RN) 0.9 % sodium chloride infusion IntraVENous, CONTINUOUS, Starting on Sun06/18/25 at 0945, -Rate of IV fluid administration during recovery will be based on the patient's LVEDP obtained during the procedure using the following formula: 1. LVEDP <13 = 5cc/kg/hr 2. LVEDP 13-18 = 3cc/kg/hr 3. LVEDP >18 = 1.5cc/kg/hr If no LVEDP obtained, ask survey technician for fluid rate and volume to be given in recovery. -Fluids will be infused over a minimum of 2 hours. Rate shall not exceed 500 cc/hr. Ask survey technician for fluid volume total to be infused. -If GFR is less than 30, fluids will be infused over a minimum of 3 hours. -In case of reduced EF, CHF, etc., consult survey technician for rate and volume to be administered., Recovery(C ath) * 1008 (Rate/Dose Change - Provider: Thao Koch, RICRADA) * 1141 (Stopped - Provider: Agatha Holland RN) heparin 25,000 units in dextrose 5% 250 mL (premix) infusion (CANCELED) 5-30 Units/kg/hr 95.5 kg (4.775-28.65 mL/hr, rounded to 4.8-28.7 mL/hr), IntraVENous, CONTINUOUS, Starting on 06/17/25 at 1215, Until Jossy 06/18/25 at 0953, Heparin Weight-Based Infusion (CAD/STEMI/NSTEMI/UA/AFIB) Patient weight: *Warning - No recorded weight in past 5 days. heparin dosing must be manually calculated* kg Initial Infusion rate: 12 Units/kg/hr [Max rate: 1000 Units/hr] (If an initial bolus is ordered, give the bolus prior to the initiation of the infusion) Hang infusion immediately after drawing initial labs. Do NOT use ANY aPTT drawn prior to initiation of infusion for titration. Check aPTT 6 hours after initiation and 6 hours after every dose change for any titrations. Adjust infusion rate based on aPTT results as listed below. Rate adjustments are to be based on initial weight of *Warning - No recorded weight in past 5 days. heparin dosing must be manually calculated* kg. aPTT < 46 seconds 60 units/kg bolus (MAX 4,000 units). Increase infusion by 4 units/kg/hr. aPTT 46-61.9 seconds 30 units/kg bolus (MAX 2,000 units). Increase infusion by 2 units/kg/hr. aPTT 62-94 seconds No bolus. No change in rate. aPTT 94.1-102 seconds No bolus. Decrease infusion by 1 units/kg/hr. aPTT 102.1-117.9 seconds No bolus. Decrease infusion by 2 units/kg/hr. aPTT 118 seconds or greater Hold heparin for 60 minutes, then decrease infusion by 3 units/kg/hr. Draw next aPTT 6 hours after infusion is restarted. When aPTT is within target range for two consecutive times, check aPTT once daily with morning labs. If the rate titration adjustment indicated by the nomogram causes a dose that is above the ordered range, contact provider. If heparin drip is held or stopped for a procedure, call provider to obtain resume rate. * 1346 (New Bag - Provider: Karol Kirk, RICADRA) * 2033 (Rate/Dose Change - Provider: BIBI Wytat) * 0653 (New Bag - Provider: Agatha Holland, RN) * 0723 (New Bag - Provider: Agatha Holland, RN) * 0952 (Stopped - Provider: Thao Koch RN) Medication Order////05/2025 0.9 % sodium chloride infusion IntraVENous, at 100 mL/hr, PRN, If patient receiving piggyback infusions without ordered maintenance IV fluids or with frequent/long duration piggyback infusions, Starting on Sun06/17/25 at 1152, Administer at the same rate as the piggyback being infused. acetaminophen (TYLENOL) suppository 650 mg(Linked Group 2) 650 mg, Rectal, EVERY 6 HOURS PRN, Starting on Sun06/17/25 at 1152, Until Discontinued, Pain Mild (1-3) OR per patient request for pain score (4-10), Fever, For temp greater than 100.4 F (38 C), Administer if oral route cannot be used. acetaminophen (TYLENOL) tablet 650 mg(Linked Group 2) 650 mg, Oral, EVERY 6 HOURS PRN, Starting on Sun06/17/25 at 1152, Until Discontinued, Pain Mild (1-3) OR per patient request for pain score (4-10), Fever, For temp greater than 100.4 F (38 C), Maximumdose of acetaminophen is 4000 mg from all sources in 24 hours. acetaminophen (TYLENOL) tablet 650 mg 650 mg, Oral, EVERY 4 HOURS PRN, Starting on Jossy 06/18/25 at 0928, Until Discontinued, Pain Mild (1-3) OR per patient request for pain score (4-10), Fever, Fever >100.5 F (38 C), Maximum dose of acetaminophen is 4000 mg from all sources in 24 hours., Recovery(Cath) albuterol (PROVENTIL) (2.5 MG/3ML) 0.083% nebulizer solution 2.5 mg 2.5 mg, Nebulization, EVERY 4 HOURS PRN, Starting on Sun06/17/25 at 1602, Until Discontinued, Wheezing, Initiate RT Bronchodilator Protocol: Yes - Inpatient Protocol * 0752 (Not Given - Provider: Shiela Patel RCP - Reason: Other - Comment: Wrong medication scanned.) heparin (porcine) injection 4,000 Units (CANCELED) 4,000 Units, IntraVENous, PRN, Starting on Sun06/17/25 at 1152, Until Sun06/18/25 at 0953, Other, heparin dosing algorithm, Full dose re-bolus based on pharmacy algorithm * 2030 (Given - Provider: BIBI Wyatt) iopamidol (ISOVUE-370) 76 % injection 75 mL (COMPLETED) 75 mL, IntraVENous, IMG ONCE PRN, 1 dose, Starting on Sun06/17/25 at 0612, Until Sun06/17/25 at 0720,Other * 0720 (Given - Provider: Ibrahima Blackburn) iopamidol (ISOVUE-370) 76 % injection (CANCELED) PRN, Starting on Sun06/18/25 at 0918, Until Jossy 06/18/25 at 0919, Intra-procedure(Cath) * 0918 (Given - Provider: Lilia Burch MD) lidocaine 1 % injection (CANCELED) PRN, Starting on Sun06/18/25 at 0905, Until Jossy 06/18/25 at 0919, Intra-procedure(Cath) * 0905 (Given - Provider: Lilia Burch MD) nitroGLYCERIN (NITROSTAT) SL tablet 0.4 mg 0.4 mg, SubLINGual, PRN, Starting on Sun06/17/25 at 0814, Until Discontinued, Chest pain, Place 1 tablet under tongue upon chest pain, wait 5 minutes and may repeat up to 3 doses in 15 minutes. Do notcrush or break. * 0843 (Given - Provider: Kristi Ha RN) * 1105 (Given - Provider: Kristi Ha RN) nitroGLYCERIN injection (CANCELED) PRN, Starting on Jossy 06/18/25 at 0905, Until Jossy 06/18/25 at 0919, Intra-procedure(Cath) * 0905 (Given - Provider: Lilia Burch MD) ondansetron (ZOFRAN) injection 4 mg(Linked Group 3) 4 mg, IntraVENous, EVERY 6 HOURS PRN, Starting on Sun06/17/25 at 1152, Until Discontinued, Nausea, Vomiting, Administer if oral route cannot be used. ondansetron (ZOFRAN-ODT) disintegrating tablet 4 mg(Linked Group 3) 4 mg, Oral, EVERY 8 HOURS PRN, Starting on Sun06/17/25 at 1152, Until Discontinued, Nausea, Vomiting polyethylene glycol (GLYCOLAX) packet 17 g 17 g, Oral, DAILY PRN, Starting on Sun06/17/25 at 1152, Until Discontinued, Constipation, First linetherapy for constipation QUEtiapine (SEROQUEL) tablet 25 mg 25 mg, Oral, NIGHTLY PRN, Starting on Sun06/17/25 at 1315, Until Discontinued, Other, sleep sodium chloride flush 0.9 % injection 5-40 mL 5-40 mL, IntraVENous, PRN, Starting on Sun06/17/25 at 1152, Until Discontinued, Line Care, After every IV line use, For Line Patency: Peripheral IV = 5 mL; Midline or Central Line = 10 mL/lumen. If following IV push medication, administer flush at same rate as the IV push. Flush volume is determinedby type of infusion therapy being given. For non-viscous solutions use: Peripheral IV = 5 mL Midline or Central Line = 10 mL/lumen For viscous solutions (i.e. blood components, parenteral nutrition, contrast media, or after obtaining blood sample) use: Peripheral IV = 10 mL Midline or Central Line = 20 mL/lumen sodium chloride flush 0.9 % injection 5-40 mL 5-40 mL, IntraVENous, PRN, Starting on Sun06/18/25 at 0928, Until Discontinued, Line Care, After every IV line use, For Line Patency: Peripheral IV = 5 mL; Midline or Central Line = 10 mL/lumen. If following IV push medication, administer flush at same rate as the IV push. Flush volume is determinedby type of infusion therapy being given. For non-viscous solutions use: Peripheral IV = 5 mL Midline or Central Line = 10 mL/lumen For viscous solutions (i.e. blood components, parenteral nutrition, contrast media, or after obtaining blood sample) use: Peripheral IV = 10 mL Midline or Central Line = 20 mL/lumen, Recovery(Cath) sulfur hexafluoride microspheres (LUMASON) 60.7-25 MG injection 2 mL (COMPLETED) 2 mL, IntraVENous, IMG ONCE PRN, 1 dose, Starting on Sun06/17/25 at 1309, Until Sun06/17/25 at 1311, Other, Inability to adequately visualize heart without contrast, Only to be given during ECHOCARDIOGRAM. Echocardiogram should first be performed without contrast and if exam is adequate then DO NOT administer the contrast. If unable to adequately visualize heart without contrast and the patient hasno contraindications to echo contrast then administer the echo contrast. * 1311 (Given - Provider: Amanda Jack) verapamil (ISOPTIN) injection (CANCELED) PRN, Starting on Sun06/18/25 at 0909, Until Sun06/18/25 at 0919, Intra-procedure(Cath) * 0909 (Given - Provider: Lilia Burch MD) Order Group 1: cefTRIAXone (ROCEPHIN) 2,000 mg in sterile water 20 mL IV syringe (CANCELED) 2,000 mg, IntraVENous, EVERY 24 HOURS, First dose on Sun06/18/25 at 1100, For 5 days, Administer as slow IV Push over 5 mins Reconstitute 2 g vials with 19.2 mL of designated diluent to produce a 100mg/mL solution And doxycycline hyclate (VIBRAMYCIN) capsule 100 mg (CANCELED)Jump to med 100 mg, Oral, EVERY 12 HOURS SCHEDULED (2 times per day), 10 doses, First dose on Sun06/17/25 at 2100, Last dose on Sun06/22/25 at 0900, Antimicrobial Indications: Pneumonia (CAP), CAP duration of therapy: 5 days, This medication can interact with tube feedings (TF)- obtain MD order to manage. Recommend holding TF for 1 h before and 2 h after dose. Take 1 h before or 2 h after dairy, calcium, iron, magnesium, aluminum or zinc. Group 2: acetaminophen (TYLENOL) tablet 650 mgJump to med 650 mg, Oral, EVERY 6 HOURS PRN, Starting on Sun06/17/25 at 1152, Until Discontinued, Pain Mild (1-3) OR per patient request for pain score (4-10), Fever, For temp greater than 100.4 F (38 C), Maximumdose of acetaminophen is 4000 mg from all sources in 24 hours. Or acetaminophen (TYLENOL) suppository 650 mgJump to med 650 mg, Rectal, EVERY 6 HOURS PRN, Starting on Sun06/17/25 at 1152, Until Discontinued, Pain Mild (1-3) OR per patient request for pain score (4-10), Fever, For temp greater than 100.4 F (38 C), Administer if oral route cannot be used. Group 3: ondansetron (ZOFRAN-ODT) disintegrating tablet 4 mgJump to med 4 mg, Oral, EVERY 8 HOURS PRN, Starting on Sun06/17/25 at 1152, Until Discontinued, Nausea, Vomiting Or ondansetron (ZOFRAN) injection 4 mgJump to med 4 mg, IntraVENous, EVERY 6 HOURS PRN, Starting on Sun06/17/25 at 1152, Until Discontinued, Nausea, Vomiting, Administer if oral route cannot be used. FOR RECORDS PERTAINING TO PATIENTS WHO ARE OR HAVE BEEN ENROLLED IN A CHEMICAL DEPENDENCY/SUBSTANCEABUSE PROGRAM, SOME INFORMATION MAY BE OMITTED. This clinical summary was aggregated from multiple sources. Caution should be exercised in using it in the provision of clinical care. This summary normalizes information from multiple sources, and as a consequence, information in this document may materially change the coding, format and clinical context of patient data. In addition, data may be omitted in some cases. CLINICAL DECISIONS SHOULD BE BASED ON THE PRIMARY CLINICAL RECORDS. [facility]. provides no warranty or guarantee of the accuracy or completeness of information in this document.
== END 2025-09-25 15:02 | disposition home or self-care (01) ==
LOC: RAD 15:04
PROVIDERS: PCP Nurse Practitioner; Visit Provider Nurse Practitioner
DX: R20.0 Anesthesia of skin (principal); F90.9 Attention-deficit hyperactivity disorder, unspecified type; F33.1 Major depressive disorder, recurrent, moderate; M25.531 Pain in right wrist
CPT/HCPCS: 73110